=== PATIENT | female | born 1930 | race Caucasian/White ===

== ENCOUNTER 2016-08-06 18:43 | Inpatient (IN) | payer MEDICARE, BC ==
[~2016-08-06] VITALS: Ht 154.9 cm; Wt 44.1 kg
[~2016-08-06 18:43] MED LIST: ASPI81 PO; CLOP75 PO; CO-E100C PO; GENT0.2D2 EACH EYE; IRON325T2 PO; LASI20TA PO; METO25 PO; MICR1TAB PO; NEXI20CA PO; NITR0.4S SL; POTA10IN2 PO; SYMB160A INH
[2016-08-06 18:46] VITALS: BP 144/61; PULSE 65; RESP 16; TEMP 98.4; O2SAT 96
[2016-08-06 19:13] VITALS: BP 163/71; PULSE 85; RESP 18; TEMP 98.4; O2SAT 97
[2016-08-06] MEDS ORDERED: CLOP75TA PO (19:13)
[2016-08-06] MEDS ORDERED: ASPI1TAB69 PO (19:13)
[2016-08-06] MEDS ORDERED: POTA10TA2 PO (19:13)
[2016-08-06] MEDS ORDERED: METO25TA3 PO (19:13)
[2016-08-06] MEDS ORDERED: FURO1TAB62 PO (19:13)
[2016-08-06] MEDS ORDERED: COEN200C4 PO (19:13)
[2016-08-06] MEDS ORDERED: SODIUM CHLOR 0.9% 1000 ML INJ 1,000 ML IV SCH ×2 (19:30→23:00)
[2016-08-06] MEDS ORDERED: SODIUM CHLORIDE 0.9% FLUSH 5 ML FLUSH IVF PRN (19:30)
--- NOTE | 2016-08-06 19:53 | PD ---
HPI Chief Complaint: Abdominal Pain Time Seen by Provider: 19:24 Travel History International Travel<30 days: No Contact w/Intl Traveler<30days: No Traveled to known affect area: No History of Present Illness HPI The patient is an 85-year-old female that complains of periumbilical and bilateral lower quadrant pain since this afternoon. She does have nausea with vomiting. She does have a abdominal aortic aneurysm is about 4 cm. She denies any fever. She denies any diarrhea and has some slight constipation but had a fairly hard bowel movement today. She has a cholecystectomy but still has her appendix. She does have a history of COPD. She has not had a cough lately. She denies any dysuria, frequency or urgency. She states she has not passed gas since he passed the stool earlier today. PFSH Past Medical History AAA: Yes Blood Disorders: No Heart Rhythm Problems: No Cancer: No Cardiac Catheterization: Yes Cardiovascular Problems: Yes (SD 1973, AAA, L OPTICAL ARTERY ANEURYSM, CARDIAC STENT) High Cholesterol: Yes Chest Pain: Yes Congestive Heart Failure: Yes COPD: Yes Coronary Artery Disease: Yes Diabetes: No Diminished Hearing: No Endocrine: No Gastrointestinal Disorders: Yes (ACID REFLUX) GERD: Yes Genitourinary: No Hepatitis: No Hiatal Hernia: No Heparin Induced Thrombocytopen: No Hypertension: Yes Immune Disorder: No Medical other: Yes (LEFT TEMPORAL ANEURYSM) Musculoskeletal: Yes (OSTEOPOROSIS) Neurologic: Yes (STROKE 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 [place]) AICD: No Arteriovenous Shunt: No Body Medical Devices: CARDIAC STENT, ANEURYSM CLIP Cardiac Surgery: Yes (CARDIAC STENT 1973) Cholecystectomy: Yes Coronary Artery Bypass Graft: No Coronary Stent: Yes Ear Surgery: No Endocrine Surgery: No Eye Surgery: Yes (RIGHT OPTIC NERVE CLIP) Genitourinary Surgery: No Gynecologic Surgery: No Insulin Pump: No Joint Replacement: No Neurologic Surgery: Yes (R TEMPORAL ANEURYSM REPAIR.) Oral Surgery: No Pacemaker: No Thoracic Surgery: No Other Surgery: Yes (LEFT CAROTID ENDARTARECTOMY) Family History Family Myocardial Infarction: No Social History Alcohol Use: No Tobacco Use: No (QUIT 2006) Substance Use: No Allergies-Medications (Allergen,Severity, Reaction): Coded Allergies: Dilantin (Verified Allergy, Severe, Rash, 08/06/16) Penicillin (Verified Allergy, Severe, Swelling, 08/06/16) Sulfa (Unverified Allergy, Severe, Rash, 08/06/16) MRI PRECAUTION (Verified Adverse Reaction, Severe, ANEURYSM CLIP CX PER S MILES ADB, 08/06/16) Percocet (Verified Adverse Reaction, Severe, Hallucinations, 08/06/16) Valium (Verified Adverse Reaction, Severe, HALLUCINATIONS, 08/06/16) Aspirin (Verified Adverse Reaction, Intermediate, Bleeding, 08/06/16) PT STATES IT IS "FULL STRENGTH ASA",BABY ASA OK. FULL STRENGTH GIVES HER A NOSE BLEED Reported Meds & Prescriptions Reported Meds & Active Scripts Active Reported Coenzyme Q-10 High Potency (Coenzyme Q10 (Ubidecarenone)) 200 Mg Cap 100 Mg PO DAILY Metoprolol Tartrate 25 Mg Tab 25 Mg PO DAILY Potassium Chloride ER (Potassium Chloride) 10 Meq Tab 10 Meq PO BID Lasix (Furosemide) 20 Mg Tab 20 Mg PO DAILY Clopidogrel (Clopidogrel Bisulfate) 75 Mg Tab 75 Mg PO DAILY Aspirin 81 Mg Tabdr 81 Mg PO DAILY Review of Systems Except as stated in HPI: all other systems reviewed are Neg Physical Exam Narrative GENERAL: The patient is alert, slender, oriented 3, slightly dehydrated- appearing in moderate apparent distress with her abdominal discomfort. Her vital signs are normal. SKIN: Warm and dry. HEAD: Atraumatic. Normocephalic. EYES: Pupils equal and round. No scleral icterus. No injection or drainage. ENT: No nasal bleeding or discharge. Mucous membranes pink and moist. NECK: Trachea midline. No JVD. CARDIOVASCULAR: Regular rate and rhythm. No murmur appreciated. RESPIRATORY: No accessory muscle use. Clear to auscultation. Breath sounds equal bilaterally. GASTROINTESTINAL: Abdomen shows bilateral guarding in the lower quadrants and periumbilical area to direct palpation, nondistended. Hepatic and splenic margins not palpable. No rebound is present. MUSCULOSKELETAL: No obvious deformities. No clubbing. No cyanosis. No edema. NEUROLOGICAL: Awake and alert. No obvious cranial nerve deficits. Motor grossly within normal limits. Normal speech. PSYCHIATRIC: Appropriate mood and affect; insight and judgment normal. Data Data Last Documented VS Vital Signs Date Time Temp Pulse Resp B/P Pulse Ox O2 Delivery O2 Flow Rate FiO2 08/06/16 23:08 74 18 166/81 97 Room Air 08/06/16 19:13 98.4 Orders Complete Blood Count With Diff (08/06/16 19:30) Lipase (08/06/16 19:30) Urinalysis - C+S If Indicated (08/06/16 19:30) Ct Abd/Pel W Iv Contrast(Rout) (08/06/16 19:30) Iv Access Insert/Monitor (08/06/16 19:30) Ecg Monitoring (08/06/16 19:30) Oximetry (08/06/16 19:30) Sodium Chlor 0.9% 1000 Ml Inj (Ns 1000 M (08/06/16 19:30) Sodium Chloride 0.9% Flush (Ns Flush) (08/06/16 19:30) Comprehensive Metabolic Panel (08/06/16 19:50) Iodixanol 320 Inj (Rad Ct) (Visipaque 32 (08/06/16 21:47) Ondansetron Inj (Zofran Inj) (08/06/16 23:00) Sodium Chlor 0.9% 1000 Ml Inj (Ns 1000 M (08/06/16 23:00) Ng Gastric Tube Insert/Monitor (08/06/16 22:51) Admit To Inpatient (08/06/16 ) Vital Signs (Adult) Q4H (08/06/16 23:00) Activity Oob Ad Nadia (08/06/16 23:00) Histologic Technician / Telemetry .CONTINUOUS (08/06/16 23:00) Intake + Output CHERYL.QSHIFT (08/06/16 23:00) Diet Npo (08/07/16 Breakfast) Sodium Chloride 0.9% Flush (Ns Flush) (08/06/16 23:00) Sodium Chloride 0.9% Flush (Ns Flush) (08/07/16 09:00) Ondansetron Inj (Zofran Inj) (08/06/16 23:00) Basic Metabolic Panel (Bmp) (08/07/16 06:00) Complete Blood Count With Diff (08/07/16 06:00) Pt Request For Service (08/06/16 23:00) Scd Bilateral/Knee High CHERYL.BID (08/06/16 23:00) Naloxone Inj (Narcan Inj) (08/06/16 23:00) Inpatient Certification (08/06/16 ) Morphine Inj (Morphine Inj) (08/06/16 23:15) Labs Laboratory Tests Test 08/06/16 19:50 White Blood Count 9.2 TH/MM3 Red Blood Count 4.38 MIL/MM3 Hemoglobin 12.2 GM/DL Hematocrit 37.6 % Mean Corpuscular Volume 85.9 FL Mean Corpuscular Hemoglobin 27.9 PG Mean Corpuscular Hemoglobin 32.5 % Concent Red Cell Distribution Width 15.2 % Platelet Count 255 TH/MM3 Mean Platelet Volume 7.4 FL Neutrophils (%) (Auto) 80.7 % Lymphocytes (%) (Auto) 13.5 % Monocytes (%) (Auto) 3.8 % Eosinophils (%) (Auto) 1.0 % Basophils (%) (Auto) 1.0 % Neutrophils # (Auto) 7.5 TH/MM3 Lymphocytes # (Auto) 1.2 TH/MM3 Monocytes # (Auto) 0.3 TH/MM3 Eosinophils # (Auto) 0.1 TH/MM3 Basophils # (Auto) 0.1 TH/MM3 CBC Comment DIFF FINAL Differential Comment Sodium Level 141 MEQ/L Potassium Level 4.9 MEQ/L Chloride Level 104 MEQ/L Carbon Dioxide Level 27.1 MEQ/L Anion Gap 10 MEQ/L Blood Urea Nitrogen 34 MG/DL Creatinine 1.40 MG/DL Estimat Glomerular Filtration 36 ML/MIN Rate Random Glucose 116 MG/DL Calcium Level 9.3 MG/DL Total Bilirubin 0.6 MG/DL Aspartate Amino Transf 15 U/L (AST/SGOT) Alanine Aminotransferase 14 U/L (ALT/SGPT) Alkaline Phosphatase 119 U/L Total Protein 7.0 GM/DL Albumin 3.3 GM/DL Lipase 254 U/L [facility] Medical Decision Making Medical Screen Exam Complete: Yes Emergency Medical Condition: Yes Medical Record Reviewed: Yes Interpretation(s) The CT abdomen pelvis shows dilated proximal and mid small bowel with multiple air fluids and some distal decompression. This is consistent with a partial or early bowel obstruction. Also noted is a 5.2 x 4 cm abdominal aortic aneurysm without evidence for rupture. The CBC is normal except for 81% neutrophils. The complete metabolic profile shows a BUN of 34, creatine 1.4, GFR 36 with alkaline phosphatase of 119 and albumen 3.3. The lipase is normal. Differential Diagnosis Colitis, appendicitis, small bowel obstruction, mesenteric adenitis, leaking abdominal aortic aneurysmunlikely electrolyte disorder, anemia Narrative Course The patient likely has a partial small bowel obstruction. She has crampy episodes with significant pain but most of the time is fairly pain-free. She states she has passed stool earlier today but it was quite hard. She states that she is not passing gas here in the emergency department. It is now 1113 and the patient has just vomited 20 minutes ago. She was given Zofran and an NG tube. Diagnosis Primary Impression: Small bowel obstruction Additional Impression: Vomiting Franco Campoverde MD Aug 06, 2016 19:53
[2016-08-06 20:01] LABS: AUTOMATED NEUTROPHIL # 7.5 TH/MM3 (1.8-7.7); BASOPHIL # 0.1 TH/MM3 (0-0.2); EOSINOPHIL # 0.1 TH/MM3 (0-0.4); HEMATOCRIT 37.6 % (35.0-46.0); HEMO FLAGS DIFF FINAL; LYMPH % 13.5 % (9.0-44.0); LYMPHOCYTE # 1.2 TH/MM3 (1.0-4.8); MEAN CELL VOLUME 85.9 FL (80.0-100.0); MEAN CORPUSCULAR HEMOGLOBIN 27.9 PG (27.0-34.0); MEAN CORPUSCULAR HGB CONC 32.5 % (32.0-36.0); MONO % 3.8 % (0.0-8.0); NEUT % 80.7 % (16.0-70.0); PLATELET COUNT 255 TH/MM3 (150-450); RED BLOOD COUNT 4.38 MIL/MM3 (4.00-5.30); RED CELL DISTRIBUTION WIDTH 15.2 % (11.6-17.2); WHITE BLOOD COUNT 9.2 TH/MM3 (4.0-11.0)
[2016-08-06 20:13] LABS: CHLORIDE 104 MEQ/L (98-107); POTASSIUM 4.9 MEQ/L (3.5-5.1); SODIUM (NA) 141 MEQ/L (136-145)
[2016-08-06 20:16] LABS: ANION GAP 10 MEQ/L (5-15); BICARBONATE 27.1 MEQ/L (21.0-32.0)
[2016-08-06 20:17] LABS: BLOOD UREA NITROGEN 34 MG/DL (7-18)
[2016-08-06 20:19] LABS: GLOMERULAR FILTRATION RATE 36 ML/MIN (>89)
[2016-08-06 20:20] LABS: ALT (GPT) 14 U/L (10-53); AST (GOT) 15 U/L (15-37)
[2016-08-06 20:21] LABS: TOTAL BILIRUBIN ADULT 0.6 MG/DL (0.2-1.0)
[2016-08-06 20:22] LABS: ALKALINE PHOSPHATASE 119 U/L (45-117)
[2016-08-06 20:28] VITALS: O2SAT 97
[2016-08-06 21:09] VITALS: BP 159/86; PULSE 84; RESP 18; O2SAT 97
[2016-08-06] MEDS ORDERED: IODIXANOL 320 MG/ML 50 ML VIAL (for Rad CT) IV ONE (21:47)
[2016-08-06 22:11] VITALS: BP 158/84; PULSE 82; RESP 18; O2SAT 97
--- NOTE | 2016-08-06 22:11 | RADHPO ---
EXAM DATE/TIME: 08/06/2016 21:23 [facility] COMPARISON: No previous studies available for comparison. INDICATIONS : Abdomen pain. IV CONTRAST: 46 cc Visipaque (iodixanol) IV ORAL CONTRAST: No oral contrast ingested. RADIATION DOSE: 7.38 CTDIvol (mGy) MEDICAL HISTORY : Cardiovascular disease. Cerebrovascular disease. Pancreatitis. SURGICAL HISTORY : Cholecystectomy. ENCOUNTER: Initial ACUITY: 1 day PAIN SCALE: 3/10 LOCATION: abdomen TECHNIQUE: Volumetric scanning of the abdomen and pelvis was performed. Using automated exposure control and ad justment of the mA and/or kV according to patient size, radiation dose was kept as low as reasonably achievable to obtain optimal diagnostic quality images. FINDINGS: There is minimal basilar atelectasis or scarring. There is mild biliary ductal dilatation with common bile duct measuring up to 14 mm. Previous cholecystectomy. Spleen, adrenals, kidneys and pancreas de monstrate no acute findings. There is small bowel dilatation with multiple air-fluid levels. Distal small bowel is decompressed. F indings are most characteristic of at least a partial or early small bowel obstruction. There is a small hiatal hernia. There is moderate to severe atherosclerotic change in the abdominal a ganga with an oval-shaped 4 x 5.2 cm infrarenal abdominal aortic aneurysm. There is a previous femoral to femoral shunt. No free fluid. No free air. CONCLUSION: 1. Dilated proximal and mid small bowel with multiple air-fluid levels and some distal decompression. Findings are most characteristic of a partial or early small bowel obstruction. 2. 5.2 x 4 cm abdominal aortic aneurysm without evidence for rupture. 3. Previous cholecystectomy with biliary ductal dilatation to 14 mm. 4. Moderate to severe coronary artery calcifications. Renato Winslow MD on August 06, 2016 at 21:58 Board Certified Radiologist. This report was verified electronically.
[2016-08-06] MEDS ORDERED: ONDANSETRON HCL 4 MG/2 ML VIAL IV ONE (23:00)
[2016-08-06] MEDS ORDERED: ONDANSETRON HCL 4 MG/2 ML VIAL IVP PRN (23:00)
[2016-08-06] MEDS ORDERED: NALOXONE HCL 0.4 MG/ML AMP IV PRN (23:00)
[2016-08-06] MEDS ORDERED: SODIUM CHLORIDE 0.9% FLUSH 5 ML FLUSH FLUSH PRN (23:00)
[2016-08-06 23:08] VITALS: BP 166/81; PULSE 74; RESP 18; O2SAT 97
[2016-08-06] MEDS ORDERED: MORPHINE SULFATE 4 MG/ML INJ IV PUSH PRN (23:15)
[2016-08-07] VITALS (9 sets, daily range): BP systolic 144–163; BP diastolic 62–84; PULSE 71–78; RESP 16–20; TEMP 96.8–98.8; O2SAT 89–96
[2016-08-07 01:57] LABS: BLOOD, URINE TRACE (NEG); GLUCOSE,URINE NEG (NEG); KETONE, URINE NEG (NEG); NITRITE,URINE NEG (NEG)
[2016-08-07 02:26] LABS: METHOD OF COLLECTION CLEAN CATCH; URINE COLOR YELLOW (YELLW/STRAW)
[2016-08-07 02:27] LABS: MUCUS URINE OCC /lpf (OCC); SQUAMOUS EPITHELIAL CELL URINE 0-5 /hpf (0-5); WBC, URINE 0-2 /hpf (0-5)
[2016-08-07 02:28] LABS: BACTERIA, URINE OCC /hpf
[2016-08-07 02:29] LABS: COMMENT (UR) CULT NOT INDICATED; CULTURE IF INDICATED CULT NOT INDICATED; RBC, URINE 0-3 /hpf (0-3)
[2016-08-07 06:30] LABS: AUTOMATED NEUTROPHIL # 7.1 TH/MM3 (1.8-7.7); BASOPHIL # 0.1 TH/MM3 (0-0.2); BASOPHIL % 0.7 % (0.0-2.0); EOSINOPHIL # 0.2 TH/MM3 (0-0.4); EOSINOPHIL % 2.7 % (0.0-4.0); HEMATOCRIT 35.1 % (35.0-46.0); HEMO FLAGS DIFF FINAL; LYMPH % 12.8 % (9.0-44.0); LYMPHOCYTE # 1.1 TH/MM3 (1.0-4.8); MEAN CORPUSCULAR HEMOGLOBIN 27.1 PG (27.0-34.0); MEAN CORPUSCULAR HGB CONC 31.9 % (32.0-36.0); MONO % 5.1 % (0.0-8.0); NEUT % 78.7 % (16.0-70.0); PLATELET COUNT 230 TH/MM3 (150-450); RED BLOOD COUNT 4.13 MIL/MM3 (4.00-5.30); RED CELL DISTRIBUTION WIDTH 14.7 % (11.6-17.2)
[2016-08-07 06:58] LABS: BICARBONATE 23.2 MEQ/L (21.0-32.0); POTASSIUM 4.2 MEQ/L (3.5-5.1)
[2016-08-07] MEDS: SODIUM CHLORIDE 0.9% FLUSH 5 ML FLUSH FLUSH SCH ×2 (08:35→20:14)
--- NOTE | 2016-08-07 09:15 | RADHPO ---
EXAM DATE/TIME: 08/07/2016 09:03 [facility] COMPARISON: No previous studies available for comparison. INDICATIONS : Abdominal pain. Obstruction. MEDICAL HISTORY : Hypertension. Hypercholesterolemia. Emphysema. Pancreatitis. NV. CHF. CAD. GERD. Osteoporosis. A rthritis.Stroke.COPD. SURGICAL HISTORY : Cholecystectomy. ORIF left hip. Right temporal aneurysm repair. ENCOUNTER: Subsequent ACUITY: 2 days PAIN SCORE: 0/10 LOCATION: entire abdomen FINDINGS: Supine and upright views of the abdomen were performed. The NG tube is in the distal esophagus. There are cholecystectomy clips The abdominal bowel gas pattern is normal. No air fluid levels are seen. No abnormal masses, calcifications, or organomegaly is seen. The visualized lower lungs are clear. No evidence of free intraperitoneal gas. The osseous structures are unremarkable. CONCLUSION: Normal examination. NG tube within the distal esophagus. Binu Paul MD on August 07, 2016 at 9:14 Board Certified Radiologist. This report was verified electronically.
[2016-08-07] MEDS ORDERED: ENALAPRILAT 1.25 MG/ML VIAL IV PRN (11:00)
--- NOTE | 2016-08-07 14:27 | HHI.HP ---
[facility] Service [facility] Primary Care Physician Calli Nguyen MD Admission Diagnosis small bowel obstruction with vomiting Diagnoses: Chief Complaint: Abdominal pain Travel History International Travel<30 Days: No Contact w/Intl Traveler <30 Da: No Traveled to Known Affected Are: No History of Present Illness This patient is a very pleasant 85-year-old female with multiple intra- abdominal surgeries in the past who has complained of sudden onset of severe abdominal pain for 1 day. Is associated with nausea and vomiting non-bilious. Patient had some loose stools and had come to the hospital for further evaluation. She denies any fevers or chills and no previous day fluid in the gastric container does appear slightly red tinged. She has felt better since nasogastric suction has been applied. Patient did have a CT abdomen pelvis which showed a my review are loops consistent with small bowel obstruction Review of Systems Constitutional: DENIES: Diaphoretic episodes, Fatigue, Fever, Weight gain, Weight loss, Chills, Dizziness, Change in appetite, Night Sweats Endocrine: DENIES: Abnorml menstrual pattern, Heat/cold intolerance, Polydipsia , Polyuria, Polyphagia Eyes: DENIES: Blurred vision, Diplopia, Eye inflammation, Eye pain, Vision loss , Photosensitivity, Double Vision Ears, nose, mouth, throat: DENIES: Tinnitus, Hearing loss, Vertigo, Nasal discharge, Oral lesions, Throat pain, Hoarseness, Ear Pain, Running Nose, Epistaxis, Sinus Pain, Toothache, Odynophagia Respiratory: DENIES: Apneas, Cough, Snoring, Wheezing, Hemoptysis, Sputum production, Shortness of breath Cardiovascular: DENIES: Chest pain, Palpitations, Syncope, Dyspnea on Exertion , PND, Lower Extremity Edema, Orthopnea, Claudication Gastrointestinal: DENIES: Abdominal pain, Black stools, Bloody stools, Constipation, Diarrhea, Nausea, Vomiting, Difficulty Swallowing, Anorexia Genitourinary: DENIES: Abnormal vaginal bleeding, Dysmenorrhea, Dyspareunia, Sexual dysfunction, Urinary frequency, Urinary incontinence, Urgency, Hematuria , Dysuria, Nocturia, Vaginal discharge Musculoskeletal: DENIES: Joint pain, Muscle aches, Stiffness, Joint Swelling, Back pain, Neck pain Integumentary: DENIES: Abnormal pigmentation, Pruritus, Rash, Nail changes, Breast masses, Breast skin changes, Nipple discharge Hematologic/lymphatic: DENIES: Bruising, Lymphadenopathy Immunologic/allergic: DENIES: Eczema, Urticaria Neurologic: DENIES: Abnormal gait, Headache, Localized weakness, Paresthesias, Seizures, Speech Problems, Tremor, Poor Balance Psychiatric: DENIES: Anxiety, Confusion, Mood changes, Depression, Hallucinations, Agitation, Suicidal Ideation, Homicidal Ideation, Delusions Past Family Social History Past Medical History CAD COPD AAA Past Surgical History GN AAA repair Cardiac stents Reported Medications Reviewed in the EMR Allergies: Coded Allergies: Dilantin (Verified Allergy, Severe, Rash, 08/06/16) Penicillin (Verified Allergy, Severe, Swelling, 08/06/16) Sulfa (Unverified Allergy, Severe, Rash, 08/06/16) MRI PRECAUTION (Verified Adverse Reaction, Severe, ANEURYSM CLIP CX PER S MILES ADB, 08/06/16) Percocet (Verified Adverse Reaction, Severe, Hallucinations, 08/06/16) Valium (Verified Adverse Reaction, Severe, HALLUCINATIONS, 08/06/16) Aspirin (Verified Adverse Reaction, Intermediate, Bleeding, 08/06/16) PT STATES IT IS "FULL STRENGTH ASA",BABY ASA OK. FULL STRENGTH GIVES HER A NOSE BLEED Active Ordered Medications Reviewed in the EMR Family History No family hx of intestinal disorders parents of old age, mother in her late 70s, father in his 90s Social History No tobacco, etoh, lives with family Physical Exam Vital Signs Vital Signs Date Time Temp Pulse Resp B/P Pulse Ox O2 Delivery O2 Flow Rate FiO2 08/07/16 12:00 97.6 71 16 158/73 94 08/07/16 08:00 98.8 74 16 158/68 95 08/07/16 04:18 86 18 96 08/07/16 04:00 98.2 75 18 155/75 95 08/07/16 03:55 74 18 161/78 96 Room Air 08/07/16 02:00 72 18 163/62 96 Room Air 08/07/16 00:05 78 18 154/84 96 Room Air 08/06/16 23:08 74 18 166/81 97 Room Air 08/06/16 22:11 82 18 158/84 97 Room Air 08/06/16 21:09 84 18 159/86 97 Room Air 08/06/16 20:28 97 Room Air 08/06/16 19:13 98.4 85 18 163/71 97 Room Air 08/06/16 19:13 18 08/06/16 18:46 98.4 65 16 144/61 96 Physical Exam GENERAL: This is a ill appearing, well-developed patient, in no apparent distress. SKIN: No rashes, ecchymoses or lesions. Cool and dry. HEAD: Atraumatic. Normocephalic. No temporal or scalp tenderness. EYES: Pupils equal round and reactive. Extraocular motions intact. No scleral icterus. No injection or drainage. ENT: Nose without bleeding, purulent drainage or septal hematoma. Throat without erythema, tonsillar hypertrophy or exudate. Uvula midline. Airway patent. NECK: Trachea midline. No JVD or lymphadenopathy. Supple, nontender, no meningeal signs. CARDIOVASCULAR: Regular rate and rhythm without murmurs, gallops, or rubs. RESPIRATORY: Clear to auscultation. Breath sounds equal bilaterally. No wheezes , rales, or rhonchi. GASTROINTESTINAL: Abdomen soft, non-tender, nondistended. No hepato-splenomegaly , or palpable masses. No guarding. Hypoactive BS MUSCULOSKELETAL: Extremities without clubbing, cyanosis, or edema. No joint tenderness, effusion, or edema noted. No calf tenderness. Negative Homans sign bilaterally. NEUROLOGICAL: Awake and alert. Cranial nerves II through XII intact. Motor and sensory grossly within normal limits. Five out of 5 muscle strength in all muscle groups. Normal speech. Laboratory Laboratory Tests Test 08/06/16 08/07/16 08/07/16 19:50 01:50 05:55 White Blood Count 9.2 9.0 Red Blood Count 4.38 4.13 Hemoglobin 12.2 11.2 Hematocrit 37.6 35.1 Mean Corpuscular Volume 85.9 85.0 Mean Corpuscular Hemoglobin 27.9 27.1 Mean Corpuscular Hemoglobin 32.5 31.9 Concent Red Cell Distribution Width 15.2 14.7 Platelet Count 255 230 Mean Platelet Volume 7.4 7.8 Neutrophils (%) (Auto) 80.7 78.7 Lymphocytes (%) (Auto) 13.5 12.8 Monocytes (%) (Auto) 3.8 5.1 Eosinophils (%) (Auto) 1.0 2.7 Basophils (%) (Auto) 1.0 0.7 Neutrophils # (Auto) 7.5 7.1 Lymphocytes # (Auto) 1.2 1.1 Monocytes # (Auto) 0.3 0.5 Eosinophils # (Auto) 0.1 0.2 Basophils # (Auto) 0.1 0.1 CBC Comment DIFF FINAL DIFF FINAL Differential Comment Sodium Level 141 144 Potassium Level 4.9 4.2 Chloride Level 104 113 Carbon Dioxide Level 27.1 23.2 Anion Gap 10 8 Blood Urea Nitrogen 34 26 Creatinine 1.40 1.10 Estimat Glomerular Filtration 36 47 Rate Random Glucose 116 98 Calcium Level 9.3 8.8 Total Bilirubin 0.6 Aspartate Amino Transf 15 (AST/SGOT) Alanine Aminotransferase 14 (ALT/SGPT) Alkaline Phosphatase 119 Total Protein 7.0 Albumin 3.3 Lipase 254 Urine Collection Type CLEAN CATCH Urine Color YELLOW Urine Turbidity CLEAR Urine pH 6.0 Urine Specific Pauline 1.021 Urine Protein NEG Urine Glucose (UA) NEG Urine Ketones NEG Urine Occult Blood TRACE Urine Nitrite NEG Urine Bilirubin NEG Urine Leukocyte Esterase NEG Urine RBC 0-3 Urine WBC 0-2 Urine Squamous Epithelial 0-5 Cells Urine Bacteria OCC Urine Mucus OCC Microscopic Urinalysis Comment CULT NOT INDICATED Date/Time Procedure Status Source Growth 08/07/16 11:50 Gastric Occult Blood Received Gastric Pending Result Diagram: 08/07/16 0555 08/07/16 0555 Imaging Last Impressions Abdomen X-Ray 08/07/16 0000 Signed Impressions: Service Date/Time: Sunday, August 07, 2016 09:03 - CONCLUSION: Normal examination. NG tube within the distal esophagus. Binu Paul MD Abdomen/Pelvis CT 08/06/16 1930 Signed Impressions: Service Date/Time: Saturday, August 06, 2016 21:23 - CONCLUSION: 1. Dilated proximal and mid small bowel with multiple air-fluid levels and some distal decompression. Findings are most characteristic of a partial or early small bowel obstruction. 2. 5.2 x 4 cm abdominal aortic aneurysm without evidence for rupture. 3. Previous cholecystectomy with biliary ductal dilatation to 14 mm. 4. Moderate to severe coronary artery calcifications. Renato Winslow MD Assessment and Plan Problem List: (1) Small bowel obstruction ICD Code: K56.69 Status: Acute Plan: Repeat abdomen today completed, unremarkable however patient still has signs and symptoms of obstruction. Continue nothing by mouth status and NG tube to low intermittent suction Repeat abdomen, in am (2) HTN (hypertension) ICD Code: I10 Status: Chronic Plan: on metoprolol, vasotec iv while npo (3) JAVI (acute kidney injury) ICD Code: N17.9 Status: Acute Plan: Likely prerenal, continue to hydrate patient. Improved with IV fluids (4) PVD (peripheral vascular disease) ICD Code: I73.9 Status: Acute Plan: and CAD on plavix and ASA which are held Assessment and Plan Plan of care to be determined by Hospital course Code Status Full code Discussed Condition With Patient, physical therapy and MedSurg nurse Physician Certification 2 Midnight Certification Type: Admission for Inpatient Services Order for Inpatient Services The services are ordered in accordance with Medicare regulations or non- Medicare payer requirements, as applicable. In the case of services not specified as inpatient-only, they are appropriately provided as inpatient services in accordance with the 2-midnight benchmark. Estimated LOS (days): 3 3 days is the estimated time the patient will need to remain in the hospital, assuming treatment plan goals are met and no additional complications. Post-Hospital Plan: Home Anita Nolan MD Aug 07, 2016 14:27
[2016-08-08] VITALS: BP 168/69; PULSE 82; RESP 20; TEMP 99.4; O2SAT 88
[2016-08-08 05:38] LABS: BASOPHIL % 0.4 % (0.0-2.0); EOSINOPHIL # 0.1 TH/MM3 (0-0.4); EOSINOPHIL % 1.5 % (0.0-4.0); HEMATOCRIT 36.3 % (35.0-46.0); HEMO FLAGS DIFF FINAL; LYMPH % 15.2 % (9.0-44.0); LYMPHOCYTE # 1.4 TH/MM3 (1.0-4.8); MEAN CELL VOLUME 86.4 FL (80.0-100.0); MEAN CORPUSCULAR HEMOGLOBIN 27.5 PG (27.0-34.0); MEAN CORPUSCULAR HGB CONC 31.8 % (32.0-36.0); MONO % 6.7 % (0.0-8.0); NEUT % 76.2 % (16.0-70.0); PLATELET COUNT 228 TH/MM3 (150-450); RED BLOOD COUNT 4.21 MIL/MM3 (4.00-5.30); RED CELL DISTRIBUTION WIDTH 15.1 % (11.6-17.2); WHITE BLOOD COUNT 9.1 TH/MM3 (4.0-11.0)
--- NOTE | 2016-08-08 06:15 | RADHPO ---
EXAM DATE/TIME: 08/08/2016 05:39 [facility] COMPARISON: No previous studies available for comparison. INDICATIONS : Abdominal pain. MEDICAL HISTORY : Cardiovascular disease. Cerebrovascular disease. Pancreatitis. SURGICAL HISTORY : Cholecystectomy. ENCOUNTER: Subsequent ACUITY: 3 days PAIN SCORE: 0/10 LOCATION: Bilateral Abdomen FINDINGS: Upper limits of normal to mildly distended small bowel seen in the left midabdomen. There is air and stool in the colon. A moderate amount of stool is seen in the rectum. No free air. Nasogastric tube tip is currently in the lower esophagus or hiatal hernia. It is above the diaphragm. CONCLUSION: Still mildly distended small bowel loops. Tip of the nasogastric tube is above the diaphragm. Wilbur Kwong MD on August 08, 2016 at 6:09 Board Certified Radiologist. This report was verified electronically.
[2016-08-08] MEDS: SODIUM CHLORIDE 0.9% FLUSH 5 ML FLUSH FLUSH SCH ×2 (07:46→20:23)
[2016-08-08 08:00] VITALS: BP 158/61; PULSE 88; RESP 18; TEMP 98.1; O2SAT 98
[2016-08-08 12:00] VITALS: BP 142/81; PULSE 85; RESP 19; TEMP 97.8; O2SAT 97
--- NOTE | 2016-08-08 12:21 | HHI.PR ---
Subjective Remarks Patient seen at 11 AM. Daughter at bedside. Patient denies abdominal pain nausea or vomiting. States she feels much better since NG tube was taken out. The patient is thirsty and requests to have green tea. Objective Vitals Vital Signs Date Time Temp Pulse Resp B/P Pulse Ox O2 Delivery O2 Flow Rate FiO2 08/08/16 08:00 98.1 88 18 158/61 98 08/08/16 00:00 99.4 82 20 168/69 88 08/07/16 21:32 93 08/07/16 20:00 97.9 76 20 160/67 89 08/07/16 16:00 96.8 78 18 144/78 93 I/O 08/07/16 08/07/16 08/07/16 08/08/16 08/08/16 08/08/16 07:00 15:00 23:00 07:00 15:00 23:00 Intake Total 0 ml 0 ml 0 ml Output Total 500 ml 200 ml 300 ml Balance -500 ml 0 ml -200 ml -300 ml Intake Oral 0 ml 0 ml 0 ml Output Urine Total 400 ml 200 ml 300 ml Gastric Drainage Total 100 ml # Voids 1 2 1 1 # Bowel Movements 0 0 0 Result Diagram: 08/08/16 0450 08/07/16 0555 Objective Remarks GENERAL: Well-nourished, well-developed very pleasant bright and interactive elderly female patient. SKIN: Warm and dry. HEAD: Normocephalic. EYES: No scleral icterus. No injection or drainage. NECK: Supple, trachea midline. No JVD or lymphadenopathy. CARDIOVASCULAR: Regular rate and rhythm without murmurs, gallops, or rubs. RESPIRATORY: Breath sounds equal bilaterally. No accessory muscle use. GASTROINTESTINAL: Bowel sounds are hypoactive. Abdomen soft, non-tender, nondistended. EXTREMITIES: No cyanosis, or edema. NEUROLOGICAL: Awake, alert, and oriented x 3. Non-focal. A/P Problem List: (1) Small bowel obstruction ICD Code: K56.69 Status: Acute (2) HTN (hypertension) ICD Code: I10 Status: Chronic (3) JAVI (acute kidney injury) ICD Code: N17.9 Status: Acute (4) PVD (peripheral vascular disease) ICD Code: I73.9 Status: Acute Assessment and Plan -Partial small bowel obstruction. Symptoms of pain and nausea have resolved. Abdominal x-ray shows mildly distended small bowel loops today. The patient took the NG tube out earlier today. Patient is thirsty. We'll try her on clears and see how she does. Advised patient and her daughter to notify me if the patient starts to get nauseated or have abdominal pain. -Acute kidney injury resolving. Continue IV fluids until by mouth intake is improved. -5 cm AAA. Followed by Dr. Colon as an outpatient. -Peripheral vascular disease. Holding aspirin and Plavix. -DVT prophylaxis with SCDs. Margarita Doran MD Aug 08, 2016 12:21
[2016-08-08 16:00] VITALS: BP 150/75; PULSE 77; RESP 17; TEMP 98; O2SAT 96
[2016-08-08 20:00] VITALS: BP 147/69; PULSE 71; RESP 20; TEMP 97.7; O2SAT 93
[2016-08-09] VITALS: BP 147/68; PULSE 81; RESP 20; TEMP 99.1; O2SAT 91
[2016-08-09 08:00] VITALS: BP 133/60; PULSE 71; RESP 18; TEMP 98.1; O2SAT 94
[2016-08-09] MEDS: SODIUM CHLORIDE 0.9% FLUSH 5 ML FLUSH FLUSH SCH (09:44)
--- NOTE | 2016-08-09 09:54 | HHI.FF ---
Face to Face Verification Diagnosis: (1) Partial small bowel obstruction (2) JAVI (acute kidney injury) (3) Claudication Physical Therapy Order: Evaluate and Treat Home Health Nursing Order: Medication education-adverse effect Nursing assessment with vital signs I have seen patient Maru Arrington on 08/09/16. My clinical findings support the need for the requested home health care services because: Ltd mobility - disease progression Deconditioned w/ increased weakness I certify that my clinical findings support that this patient is homebound because: Unsafe to leave home unassisted Need for psychosocial assistance Margarita Doran MD Aug 09, 2016 09:54
--- NOTE | 2016-08-09 09:55 | HHI.DS ---
Discharge Summary Admission Date Aug 06, 2016 at 23:16 Discharge Date: Aug 09, 2016 Admitting Diagnosis small bowel obstruction with vomiting (1) HTN (hypertension) ICD Code: I10 (2) JAVI (acute kidney injury) ICD Code: N17.9 (3) PVD (peripheral vascular disease) ICD Code: I73.9 (4) Partial small bowel obstruction ICD Code: K56.69 Procedures None Brief History - From Admission This patient is a very pleasant 85-year-old female with multiple intra- abdominal surgeries in the past who has complained of sudden onset of severe abdominal pain for 1 day. Is associated with nausea and vomiting non-bilious. Patient had some loose stools and had come to the hospital for further evaluation. She denies any fevers or chills and no previous day fluid in the gastric container does appear slightly red tinged. She has felt better since nasogastric suction has been applied. Patient did have a CT abdomen pelvis which showed dilated proximal and mid small bowel with multiple air-fluid levels and some distal decompression consistent with partial small bowel obstruction. CBC/BMP: 08/08/16 0450 08/07/16 0555 Significant Findings Laboratory Tests Test 08/06/16 08/07/16 08/07/16 08/08/16 19:50 01:50 05:55 04:50 Neutrophils (%) (Auto) 80.7 % 78.7 % 76.2 % (16.0-70.0) (16.0-70.0) (16.0-70.0) Blood Urea Nitrogen 34 MG/DL (7-18) 26 MG/DL (7-18) Creatinine 1.40 MG/DL 1.10 MG/DL (0.50-1.00) (0.50-1.00) Estimat Glomerular Filtration 36 ML/MIN (>89) 47 ML/MIN (>89) Rate Random Glucose 116 MG/DL (74-106) Alkaline Phosphatase 119 U/L (45-117) Albumin 3.3 GM/DL (3.4-5.0) Urine Occult Blood TRACE (NEG) Urine Bacteria OCC /hpf (NONE) Hemoglobin 11.2 GM/DL (11.6-15.3) Mean Corpuscular Hemoglobin 31.9 % 31.8 % Concent (32.0-36.0) (32.0-36.0) Chloride Level 113 MEQ/L (98-107) Imaging Last Impressions Abdomen X-Ray 08/08/16 0600 Signed Impressions: Service Date/Time: Monday, August 08, 2016 05:39 - CONCLUSION: Still mildly distended small bowel loops. Tip of the nasogastric tube is above the diaphragm. Wilbur Kwong MD Abdomen/Pelvis CT 08/06/16 1930 Signed Impressions: Service Date/Time: Saturday, August 06, 2016 21:23 - CONCLUSION: 1. Dilated proximal and mid small bowel with multiple air-fluid levels and some distal decompression. Findings are most characteristic of a partial or early small bowel obstruction. 2. 5.2 x 4 cm abdominal aortic aneurysm without evidence for rupture. 3. Previous cholecystectomy with biliary ductal dilatation to 14 mm. 4. Moderate to severe coronary artery calcifications. Renato Winslow MD PE at Discharge GENERAL: Well-nourished, well-developed very pleasant bright and interactive elderly female patient. SKIN: Warm and dry. HEAD: Normocephalic. EYES: No scleral icterus. No injection or drainage. NECK: Supple, trachea midline. No JVD or lymphadenopathy. CARDIOVASCULAR: Regular rate and rhythm without murmurs, gallops, or rubs. RESPIRATORY: Breath sounds equal bilaterally. No accessory muscle use. GASTROINTESTINAL: Bowel sounds are hypoactive. Abdomen soft, non-tender, nondistended. EXTREMITIES: No cyanosis, or edema. NEUROLOGICAL: Awake, alert, and oriented x 3. Non-focal. Hospital Course The patient was admitted and given an NG tube. Symptoms improved. The patient was advanced to clears and full liquid and is now tolerating a regular diet and had a bowel movement last night and this morning with no abdominal pain nausea or vomiting. She would like to go home. I did discuss her care with her daughter. Home health care will be arranged. She will be discharged home today. Pt Condition on Discharge: Stable Discharge Disposition: Disch w/ Home Health Serv Discharge Time: <= 30 minutes Discharge Instructions DIET: Follow Instructions for: As Tolerated, No Restrictions Activities you can perform: Regular-No Restrictions Continued Medications: Aspirin (Aspirin) 81 Mg Tabdr 81 MG PO DAILY TAB Clopidogrel (Clopidogrel) 75 Mg Tab 75 MG PO DAILY Blood Clot Prevention #30 Ref 0 TAB Coenzyme Q10 (Ubidecarenone) (Coenzyme Q-10 High Potency) 200 Mg Cap 100 MG PO DAILY Furosemide (Lasix) 20 Mg Tab 20 MG PO DAILY #30 Ref 0 TAB Metoprolol Tartrate (Metoprolol Tartrate) 25 Mg Tab 25 MG PO DAILY #30 Ref 0 TAB Potassium Chloride ER (Potassium Chloride ER) 10 Meq Tab 10 MEQ PO BID Electrolyte Replacement #60 Ref 0 TAB Margarita Doran MD Aug 09, 2016 09:55
[2016-08-09 12:00] VITALS: BP 159/72; PULSE 72; RESP 18; TEMP 98.2; O2SAT 95
== END 2016-08-09 13:19 | disposition home health service (06) | DRG 389 ==
LOC: PHED 18:43 → PHEDA 23:16 → PH3A 08-07 04:18
PROVIDERS: ADMIT Family Medicine; ATTEND Family Medicine
DX: K56.69 Other intestinal obstruction (principal); N17.9 Acute kidney failure, unspecified; J44.9 Chronic obstructive pulmonary disease, unspecified; I50.9 Heart failure, unspecified; E86.0 Dehydration; I73.9 Peripheral vascular disease, unspecified; Z98.890 Other specified postprocedural states; I10 Essential (primary) hypertension; I25.10 Atherosclerotic heart disease of native coronary artery without angina pectoris; I25.2 Old myocardial infarction; Z79.82 Long term (current) use of aspirin; I71.4 Abdominal aortic aneurysm, without rupture; Z86.73 Personal history of transient ischemic attack (TIA), and cerebral infarction without residual deficits; M81.0 Age-related osteoporosis without current pathological fracture; E78.00 Pure hypercholesterolemia, unspecified; K21.9 Gastro-esophageal reflux disease without esophagitis; Z87.891 Personal history of nicotine dependence
CPT/HCPCS: 43753; 74020; 74177; 80048; 80053; 81001; 82270; 83690; 84443; 85025; 96361; 96374; J2270; J2405; J7030; Q9967

== ENCOUNTER 2016-08-11 20:50 | Observation (INO) | payer MEDICARE, BC ==
[~2016-08-11 20:50] MED LIST changes: +ASPI1TAB69 PO; -ASPI81 PO; -CLOP75 PO; +CLOP75TA PO; -CO-E100C PO; +COEN200C4 PO; +FURO1TAB62 PO; -GENT0.2D2 EACH EYE; -IRON325T2 PO; -LASI20TA PO; -METO25 PO; +METO25TA3 PO; -MICR1TAB PO; -NEXI20CA PO; -NITR0.4S SL; -POTA10IN2 PO; +POTA10TA2 PO; -SYMB160A INH
[2016-08-11 21:00] VITALS: PULSE 56; RESP 16; O2SAT 94
--- NOTE | 2016-08-11 21:13 | PD ---
HPI Chief Complaint: Chest Pain Time Seen by Provider: 21:07 Travel History International Travel<30 days: No Contact w/Intl Traveler<30days: No History of Present Illness HPI 85-year-old female with history of CAD with previous PCI, AAA status post repair , COPD here with complaint of chest pain. Patient states that she has had left inframammary chest pressure intermittently throughout the day today. Symptoms resolved within minutes after taking a single nitroglycerin. Patient states that this wears off over the course of several hours and her pain returned. She does not take aspirin due to an allergy. She is pain-free at this time. Twelve-lead EKG unremarkable per EMS. Stable during transport. Patient unknown last stress test, per EMR this is in 2012. 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 No associated shortness of breath, lightheadedness, cough, cold, chest congestion. PFSH Past Medical History AAA: Yes Arthritis: Yes Autoimmune Disease: No Blood Disorders: No Anxiety: Yes Depression: No Heart Rhythm Problems: No Cancer: No Cardiac Catheterization: Yes Cardiovascular Problems: Yes ([place] 1973, AAA, L OPTICAL ARTERY ANEURYSM, CARDIAC STENT) High Cholesterol: Yes Chest Pain: Yes Congestive Heart Failure: Yes COPD: Yes Cerebrovascular Accident: Yes Coronary Artery Disease: Yes Diabetes: No Diminished Hearing: No Endocrine: No Gastrointestinal Disorders: Yes (ACID REFLUX) GERD: Yes Genitourinary: No Hepatitis: No Hiatal Hernia: No Heparin Induced Thrombocytopen: No Hypertension: Yes Immune Disorder: No Kidney Stones: No Musculoskeletal: Yes (OSTEOPOROSIS) Neurologic: Yes (STROKE 1973) Psychiatric: No Reproductive: No Respiratory: Yes (EMPHYSEMA) Immunizations Current: Yes Migraines: No Myocardial Infarction: Yes Pancreatitis: Yes Renal Failure: No Seizures: No Sleep Apnea: No Thyroid Disease: No Ulcer: No Menopausal: Yes : 4 Para: 3 Miscarriage: 1 Past Surgical History Abdominal Surgery: Yes (LAP. [place]) AICD: No Arteriovenous Shunt: No Body Medical Devices: CARDIAC STENT, ANEURYSM CLIP Cardiac Surgery: Yes (CARDIAC STENT 1973) Cholecystectomy: Yes Coronary Artery Bypass Graft: No Coronary Stent: Yes Ear Surgery: No Endocrine Surgery: No Eye Surgery: Yes (RIGHT OPTIC NERVE CLIP) Genitourinary Surgery: No Gynecologic Surgery: No Insulin Pump: No Joint Replacement: No Neurologic Surgery: Yes (R TEMPORAL ANEURYSM REPAIR.) Oral Surgery: No Pacemaker: No Thoracic Surgery: No Other Surgery: Yes (LEFT CAROTID ENDARTARECTOMY) Social History Alcohol Use: No Tobacco Use: No (QUIT 2006) Substance Use: No Allergies-Medications (Allergen,Severity, Reaction): Coded Allergies: Dilantin (Verified Allergy, Severe, Rash, 08/11/16) Penicillin (Verified Allergy, Severe, Swelling, 08/11/16) Sulfa (Unverified Allergy, Severe, Rash, 08/11/16) MRI PRECAUTION (Verified Adverse Reaction, Severe, ANEURYSM CLIP CX PER S MILES ADB, 08/11/16) Percocet (Verified Adverse Reaction, Severe, Hallucinations, 08/11/16) Valium (Verified Adverse Reaction, Severe, HALLUCINATIONS, 08/11/16) Aspirin (Verified Adverse Reaction, Intermediate, Bleeding, 08/11/16) PT STATES IT IS "FULL STRENGTH ASA",BABY ASA [place]. FULL STRENGTH GIVES HER A NOSE BLEED Reported Meds & Prescriptions Reported Meds & Active Scripts Active Reported Coenzyme Q-10 High Potency (Coenzyme Q10 (Ubidecarenone)) 200 Mg Cap 100 Mg PO DAILY Metoprolol Tartrate 25 Mg Tab 25 Mg PO DAILY Potassium Chloride ER (Potassium Chloride) 10 Meq Tab 10 Meq PO BID Lasix (Furosemide) 20 Mg Tab 20 Mg PO DAILY Clopidogrel (Clopidogrel Bisulfate) 75 Mg Tab 75 Mg PO DAILY Aspirin 81 Mg Tabdr 81 Mg PO DAILY Review of Systems Except as stated in HPI: all other systems reviewed are Neg Physical Exam Narrative GENERAL: Cachectic elderly female in no acute distress SKIN: Warm and dry. HEAD: Normocephalic. EYES: No scleral icterus. No injection or drainage. ENT: Mucous membranes pink and moist. NECK: Supple CARDIOVASCULAR: Regular rate and rhythm. No murmur appreciated. Slight reproducible tenderness to palpation of the left lower sternal margin. RESPIRATORY: No accessory muscle use. Clear to auscultation. Breath sounds equal bilaterally. GASTROINTESTINAL: Abdomen soft, non-tender, nondistended. MUSCULOSKELETAL: No edema. NEUROLOGICAL: Awake and alert. normal speech. PSYCHIATRIC: Appropriate mood and affect; insight and judgment normal. Data Data Last Documented VS Vital Signs Date Time Temp Pulse Resp B/P Pulse Ox O2 Delivery O2 Flow Rate FiO2 08/11/16 21:42 64 16 134/64 97 Nasal Cannula 2 Orders Electrocardiogram (08/11/16 21:07) Basic Metabolic Panel (Bmp) (08/11/16 21:07) Ckmb (Isoenzyme) Profile (08/11/16 21:07) Complete Blood Count With Diff (08/11/16 21:07) Magnesium (Mg) (08/11/16 21:07) Prothrombin Time / Inr (Pt) (08/11/16 21:07) Act Partial Throm Time (Ptt) (08/11/16 21:07) Troponin I (08/11/16 21:07) Chest, Single Ap (08/11/16 21:07) Ecg Monitoring (08/11/16 21:07) Bilateral Bp Monitoring (08/11/16 21:07) Iv Access Insert/Monitor (08/11/16 21:07) Oximetry (08/11/16 21:07) Sodium Chloride 0.9% Flush (Ns Flush) (08/11/16 21:15) Nitroglycerin Sl (Nitrostat Sl) (08/11/16 21:30) Admit Order (Ed Use Only) (08/11/16 22:06) Activity Bed Rest With Brp (08/11/16 22:07) Vital Signs (Adult) Q4H (08/11/16 22:07) Cardiac Rhythm .As Directed (08/11/16 22:07) ^ Notify Dr: Other .PRN (08/11/16 22:07) ^ Notify DrToribio Parameters (08/11/16 22:07) Resp Oxygen Nasal Cannula (08/11/16 ) Diet Npo (08/12/16 Breakfast) Ckmb (Isoenzyme) Profile (08/12/16 00:15) Ckmb (Isoenzyme) Profile (08/12/16 03:15) Troponin I (08/12/16 00:15) Troponin I (08/12/16 03:15) Electrocardiogram (08/12/16 00:15) Electrocardiogram (08/12/16 03:15) ^ Obtain (08/11/16 22:07) Sodium Chloride 0.9% Flush (Ns Flush) (08/11/16 22:15) Sodium Chloride 0.9% Flush (Ns Flush) (08/12/16 09:00) Nitroglycerin Sl (Nitrostat Sl) (08/11/16 22:15) Photo Specialist / Telemetry CHERYL.Q8H (08/11/16 22:07) Diet Heart Healthy (08/11/16 Dinner) Labs Laboratory Tests Test 08/11/16 21:15 White Blood Count 6.1 TH/MM3 Red Blood Count 3.51 MIL/MM3 Hemoglobin 10.0 GM/DL Hematocrit 30.5 % Mean Corpuscular Volume 86.9 FL Mean Corpuscular Hemoglobin 28.4 PG Mean Corpuscular Hemoglobin 32.7 % Concent Red Cell Distribution Width 15.9 % Platelet Count 213 TH/MM3 Mean Platelet Volume 7.7 FL Neutrophils (%) (Auto) 45.4 % Lymphocytes (%) (Auto) 32.2 % Monocytes (%) (Auto) 12.0 % Eosinophils (%) (Auto) 9.4 % Basophils (%) (Auto) 1.0 % Neutrophils # (Auto) 2.8 TH/MM3 Lymphocytes # (Auto) 2.0 TH/MM3 Monocytes # (Auto) 0.7 TH/MM3 Eosinophils # (Auto) 0.6 TH/MM3 Basophils # (Auto) 0.1 TH/MM3 CBC Comment DIFF FINAL Differential Comment Prothrombin Time 11.4 SEC Prothromb Time International 1.0 RATIO Ratio Activated Partial 25.0 SEC Thromboplast Time Sodium Level 142 MEQ/L Potassium Level 3.9 MEQ/L Chloride Level 108 MEQ/L Carbon Dioxide Level 26.2 MEQ/L Anion Gap 8 MEQ/L Blood Urea Nitrogen 19 MG/DL Creatinine 1.22 MG/DL Estimat Glomerular Filtration 42 ML/MIN Rate Random Glucose 89 MG/DL Calcium Level 8.4 MG/DL Magnesium Level 1.9 MG/DL Total Creatine Kinase 97 U/L Troponin I LESS THAN 0.02 NG/ML MDM Medical Decision Making Medical Screen Exam Complete: Yes Emergency Medical Condition: Yes Medical Record Reviewed: Yes Differential Diagnosis 85-year-old female with history of CAD with previous PCI, AAA status post repair , COPD here with complaint of chest pain. Differential includes ACS, musculoskeletal, atypical chest pain, GERD and less likely PE or dissection. Patient does not have any symptoms of COPD exacerbation. Narrative Course Patient placed on monitor, IV established and blood obtained. A twelve-lead EKG shows sinus rhythm with T-wave inversions in lateral leads aVL, 5, 6. This is similar to patient's previous. She is symptom-free at this time. CBC, BMP, magnesium, CK-MB, troponin, coags obtained and unremarkable. Portable chest x- ray obtained and showed no acute abnormalities. Based on her cardiac history and symptoms will admit for serial enzymes and stress testing. Diagnosis Primary Impression: Chest pain Qualified Code: R07.2 - Precordial pain Additional Impression: Coronary artery disease Admitting Information Admitting Physician Requests: Elsi Hamilton MD Aug 11, 2016 21:13
[2016-08-11] MEDS ORDERED: SODIUM CHLORIDE 0.9% FLUSH 5 ML FLUSH IVF PRN ×2 (21:15→22:15)
[2016-08-11 21:28] LABS: AUTOMATED NEUTROPHIL # 2.8 TH/MM3 (1.8-7.7); BASOPHIL # 0.1 TH/MM3 (0-0.2); EOSINOPHIL # 0.6 TH/MM3 (0-0.4); EOSINOPHIL % 9.4 % (0.0-4.0); HEMATOCRIT 30.5 % (35.0-46.0); HEMO FLAGS DIFF FINAL; LYMPH % 32.2 % (9.0-44.0); MEAN CELL VOLUME 86.9 FL (80.0-100.0); MEAN CORPUSCULAR HEMOGLOBIN 28.4 PG (27.0-34.0); MEAN CORPUSCULAR HGB CONC 32.7 % (32.0-36.0); NEUT % 45.4 % (16.0-70.0); PLATELET COUNT 213 TH/MM3 (150-450); RED BLOOD COUNT 3.51 MIL/MM3 (4.00-5.30); RED CELL DISTRIBUTION WIDTH 15.9 % (11.6-17.2); WHITE BLOOD COUNT 6.1 TH/MM3 (4.0-11.0)
[2016-08-11] MEDS ORDERED: NITROGLYCERIN 0.4 MG SL 25 TABS/BTL SL ONE (21:30)
[2016-08-11 21:41] LABS: PROTHROMBIN TIME - PATIENT 11.4 SEC (9.8-11.6)
[2016-08-11 21:42] VITALS: BP 134/64; PULSE 64; RESP 16; O2SAT 97
--- NOTE | 2016-08-11 21:55 | RADRPT ---
EXAM DATE/TIME: 08/11/2016 21:23 [facility] COMPARISON: CHEST SINGLE AP, April 22, 2013, 23:33. INDICATIONS : Chest Pain, Short of Breath. MEDICAL HISTORY : Cardiovascular disease. Cerebrovascular disease. Hypertension. Hypercholesterolemia. Emphysema. Pancr eatitis. NH. CHF. CAD. GERD. Osteoporosis. Arthritis. Stroke. COPD. SURGICAL HISTORY : Cholecystectomy. ORIF left hip. Right temporal aneurysm repair. ENCOUNTER: Initial ACUITY: 1 day PAIN SCORE: 6/10 LOCATION: Bilateral chest FINDINGS: A single view of the chest demonstrates no focal consolidation or significant effusion. Minimal basil ar scarring or atelectasis. Heart size upper limits normal. Atherosclerotic and tortuous aorta. No pn eumothorax. CONCLUSION: 1. Minimal linear atelectasis or scarring at the bases. No significant effusion. Renato Winslow MD on August 11, 2016 at 21:52 Board Certified Radiologist. This report was verified electronically.
[2016-08-11 21:58] LABS: ANION GAP 8 MEQ/L (5-15); BICARBONATE 26.2 MEQ/L (21.0-32.0); BLOOD UREA NITROGEN 19 MG/DL (7-18); CHLORIDE 108 MEQ/L (98-107); GLOMERULAR FILTRATION RATE 42 ML/MIN (>89); MAGNESIUM 1.9 MG/DL (1.5-2.5); POTASSIUM 3.9 MEQ/L (3.5-5.1); SODIUM (NA) 142 MEQ/L (136-145)
[2016-08-11 22:05] LABS: CREATINE KINASE 97 U/L (26-192)
[2016-08-11] MEDS ORDERED: NITROGLYCERIN 0.4 MG SL 25 TABS/BTL SL PRN (22:15)
[2016-08-11 22:59] VITALS: O2SAT 97
[2016-08-12] VITALS (8 sets, daily range): BP systolic 164–180; BP diastolic 68–77; PULSE 57–66; RESP 18–19; TEMP 96.5–97.4; O2SAT 97–100
[2016-08-12 01:32] LABS: CREATINE KINASE 89 U/L (26-192)
[2016-08-12 03:46] LABS: CREATINE KINASE 105 U/L (26-192)
[2016-08-12 03:59] LABS: CKMB 1.5 NG/ML (0.5-3.6)
[2016-08-12] MEDS ORDERED: SODIUM CHLORIDE 0.9% FLUSH 5 ML FLUSH IVF SCH (09:00)
[2016-08-12] MEDS ORDERED: POTASSIUM CHLORIDE 10 MEQ CONTROLLED RELEASE TAB PO SCH (09:15)
[2016-08-12] MEDS ORDERED: FUROSEMIDE 20 MG TAB PO SCH (09:15)
[2016-08-12] MEDS ORDERED: METOPROLOL TARTRATE 25 MG TAB PO SCH (09:15)
[2016-08-12] MEDS ORDERED: CLOPIDOGREL 75 MG TAB PO SCH (09:15)
[2016-08-12] MEDS ORDERED: REGADENOSON INJ 0.4 MG/5 ML SYR ONE (11:06)
--- NOTE | 2016-08-12 12:33 | EKG ---
Date Performed: 08/11/2016 Time Performed: 21:04:47 PTAGE: 85 years EKG: Sinus rhythm NONSPECIFIC T-WAVE ABNORMALITY ABNORMAL ECG NO PREVIOUS TRACING DOCTOR: Demond Mercado Interpretating Date/Time 08/12/2016 12:33:22
--- NOTE | 2016-08-12 12:38 | EKG ---
Date Performed: 08/11/2016 Time Performed: 23:55:48 PTAGE: 85 years EKG: Sinus rhythm MODERATE T-WAVE ABNORMALITY, CONSIDER LATERAL ISCHEMIA POOR PRECORDIAL R-WAVE PROGRESSION ABNORMAL E CG PREVIOUS TRACING : 08/03/2014 06.51 DOCTOR: Demond Mercado Interpretating Date/Time 08/12/2016 12:36:25
--- NOTE | 2016-08-12 12:43 | EKG ---
Date Performed: 08/12/2016 Time Performed: 02:28:27 PTAGE: 85 years EKG: Sinus rhythm MODERATE T-WAVE ABNORMALITY, CONSIDER LATERAL ISCHEMIA POOR PRECORDIAL R-WAVE PROGRESSION ABNORMAL E CG PREVIOUS TRACING : 08/11/2016 23.55 DOCTOR: Demond Mercado Interpretating Date/Time 08/12/2016 12:42:58
--- NOTE | 2016-08-12 12:46 | EKG ---
Date Performed: 08/12/2016 Time Performed: 03:17:45 PTAGE: 85 years EKG: Sinus rhythm NONSPECIFIC T-WAVE ABNORMALITY POOR PRECORDIAL R-WAVE PROGRESSION ABNORMAL ECG PREVIOUS TRACING : 08/12/2016 02.28 DOCTOR: Demond Mercado Interpretating Date/Time 08/12/2016 12:44:58
--- NOTE | 2016-08-12 13:08 | RADRPT ---
EXAM DATE/TIME: 08/12/2016 10:49 [facility] COMPARISON: No previous studies available for comparison. INDICATIONS : Substernal chest pain. Angina. Coronary artery disease. DOSE: 25.4 mCi Tc99m Myoview at stress. 8.5 mCi Tc99m Myoview at rest. 0.4 mg Lexiscan STRESS SYMPTOMS: Nausea and dyspnea. EJECTION FRACTION: 65% MEDICAL HISTORY : Myocardial infarction. Chronic obstructive pulmonary disease. Gastroesophageal reflux disease. Hypert ension, emphysema, acid reflux and prior stroke. SURGICAL HISTORY : Carotid endarterectomy. Cholecystectomy. Abdominal aortic aneurysm repair. Cardiac stents and tempora l aneurysm repair. ENCOUNTER: Initial ACUITY: 1 day PAIN SCALE: 6/10 LOCATION: Substernal chest TECHNIQUE: The patient underwent pharmacologic stress with infusion of prescribed dose. Continuous ECG tracing was monitored during stress. Gated SPECT imaging was performed after stress and conventional SPECT i maging was performed at rest. The examination was performed on a SPECT/CT scanner, both attenuation and non-corrected datasets were reviewed. FINDINGS: DISTRIBUTION: The maximum perfused segment at stress is in the inferoseptal wall. PERFUSION STUDY: No reversible perfusion defects. Fixed defect again seen within the inferolateral wall. GATED STUDY: There is intact wall motion and thickening without hypokinetic or dyskinetic segments. CONCLUSION: No reversible perfusion to suggest ischemia. Old myocardial infarction in the inferolateral wall. RISK CATEGORY: Intermediate (1-3% Annual Mortality Rate) Colten Eugene MD on August 12, 2016 at 13:04 Board Certified Radiologist. This report was verified electronically.
[2016-08-12 14:34] LABS: BASOPHIL # 0.1 TH/MM3 (0-0.2); BASOPHIL % 0.9 % (0.0-2.0); EOSINOPHIL # 0.6 TH/MM3 (0-0.4); EOSINOPHIL % 8.3 % (0.0-4.0); HEMATOCRIT 35.2 % (35.0-46.0); HEMO FLAGS DIFF FINAL; LYMPH % 21.8 % (9.0-44.0); LYMPHOCYTE # 1.5 TH/MM3 (1.0-4.8); MEAN CELL VOLUME 85.8 FL (80.0-100.0); MEAN CORPUSCULAR HEMOGLOBIN 28.9 PG (27.0-34.0); MEAN CORPUSCULAR HGB CONC 33.7 % (32.0-36.0); MONO % 9.5 % (0.0-8.0); NEUT % 59.5 % (16.0-70.0); PLATELET COUNT 261 TH/MM3 (150-450); RED CELL DISTRIBUTION WIDTH 15.3 % (11.6-17.2); WHITE BLOOD COUNT 6.8 TH/MM3 (4.0-11.0)
[2016-08-12] MEDS ORDERED: PROT40TA PO (15:39)
[2016-08-12] MEDS ORDERED: AMLO2.5T PO (15:39)
--- NOTE | 2016-08-12 15:41 | HHI.DCPOC ---
Discharge Care Plan Diagnosis: (1) Chest pain (2) Coronary artery disease (3) H/O heart artery stent (4) HTN (hypertension) (5) PVD (peripheral vascular disease) (6) History of abdominal aortic aneurysm (AAA) (7) Renal insufficiency Goals to Promote Your Health DISCUSS WITH YOUR PRIMARY CARE PHYSICIAN CHOLESTEROL MEDICATIONS. * To prevent worsening of your condition and complications * To maintain your health at the optimal level Directions to Meet Your Goals Take your medications as prescribed Follow your dietary instruction Follow activity as directed Keep your appointments as scheduled Take your immunizations and boosters as scheduled If your symptoms worsen call your PCP, if no PCP go to Urgent Care Center or Emergency Room Smoking is Dangerous to Your Health. Avoid second hand smoke Call the 24-hour hour crisis hotline for domestic abuse at [facility] More Aug 12, 2016 15:41
--- NOTE | 2016-08-12 19:15 | TR ---
Date Performed: 08/12/2016 Time Performed: 11:48:41 DOCTOR: Demond Mercado DRUG LIST: CLINICAL HISTORY: CHEST PAIN REASON FOR TEST: CHEST PAIN REASON FOR ENDING: OBSERVATION: CONCLUSION: Lexiscan stress test was performed under standard four minute protocol. Radionuclide was injected one minute prior to ending the test. Developed dyspnea and nausea, systolic blood press ure was slightly elevated. Rare PACs were noted. No electrocardiographic abnormalities were present t o suggest ischemia. Recovery was quick and uneventful with resolution of symptoms, systolic blood pre ssure returned to normal. Nuclear imaging and interpretation are pending. COMMENTS:
--- NOTE | 2016-08-13 12:18 | MH ---
cc: MARISSA MERCADO DATE OF ADMISSION: 08/11/2016 DATE OF : 1930 CHIEF COMPLAINT Chest pain. HISTORY OF PRESENT ILLNESS This is a 85-year-old female that presents to the ED via [facility] with a complaint of discomfort in her chest. She describes a left-sided pain that began yesterday. It was intermittent. It would last about an hour at a time. She states that at times nitro did help. She had no shortness of breath, nausea, diaphoresis. She states that she had AL in 2006 and had a stent placed at that time. These symptoms do not feel similar to that episode. Upon reviewing her records she had an acute inferior STEMI in 2006 and had a stent of the left circumflex. In that heart catheterization, also mentioned left common iliac artery showed diffuse critical disease followed by an area of aneurysm. She was admitted to this hospital last week for a small-bowel obstruction. At the time a CT was obtained showing a 5.2 x 4 cm abdominal aortic aneurysm without evidence of rupture, also had mention of bowel obstruction. The patient also has a history of peripheral vascular disease and follows with Dr. Colon for this as well as carotid stenosis with history of left carotid enterectomy. With the symptoms yesterday she did not have any shortness of breath, nausea or diaphoresis. PAST MEDICAL HISTORY 1. Abdominal aortic aneurysm following Dr. Colon for this. 2. Peripheral vascular disease and she has had right to left fem-pop bypass. 3. CAD: The patient had a STEMI in 2006 with stent to the circumflex. 4. History of hypertension. 5. History of cerebral aneurysm with a clip. She denies any ___ hyperlipidemia, diabetes. FAMILY HISTORY Denies family history of CAD. SOCIAL HISTORY The patient quit smoking in 2006, prior to that she smoked for 50 years. Denies alcohol or illicit drugs. PAST SURGICAL HISTORY 1. Carotid endarterectomy. 2. Cardiac catheterization with stenting. 3. Stenting of the iliac artery. 4. Left fem-pop bypass. 5. Cholecystectomy. 6. She has aneurysm clip. ALLERGIES DILANTIN, PENICILLIN, SULFA, PERCOCET, VALIUM, ASPIRIN WHICH SHE STATES IF MORE OF AN ADVERSE REACTION WITH GI BLEED BUT CAN TAKE A BABY ASPIRIN ___. MEDICATIONS Current medications include: 1. Plavix. 2. Lasix. 3. Potassium. 4. Metoprolol. 5. Coenzyme. 6. Baby aspirin. REVIEW OF SYSTEMS GENERAL: Denies fevers or chills. States she had a recent admission for obstruction. However, she states her abdominal pain has resolved. She had normal bowel movement yesterday. HEENT: Denies headache, earache, sore throat, difficulty swallowing. CARDIOVASCULAR: Describes the discomfort as mentioned above. Denies diaphoresis. Denies sensation of heart beating rapidly or irregularly. No syncope. States these symptoms do not feel similar to when she had stenting in 2006. RESPIRATORY: Denies shortness of breath or inspirational chest discomfort. Denies coughing, wheezing or hemoptysis. GI: Denies nausea, vomiting, diarrhea, abdominal pain or blood in stool. Last bowel movement was yesterday. MUSCULOSKELETAL: Denies joint pain or edema. Denies calf pain or edema. NEUROVASCULAR: Denies headache or dizziness. ENDOCRINE: Denies polyuria or polydipsia. HEMATOLOGIC: Denies easy bruising. SKIN: Denies rash or itching. PHYSICAL EXAMINATION VITAL SIGNS: In the emergency department initially included a blood pressure of 134/64, heart rate 64, respirations 16, pulse oximetry 97& on 2 liters nasal cannula. Most recent vital signs include blood pressure 170/72, heart rate 66, respirations 18, pulse oximetry 99% on room air and she was afebrile. GENERAL: The patient is seen in the examination room, in no apparent distress. She is very pleasant. Her daughter is also at the bedside. HEENT: Head is atraumatic and normocephalic. NECK: Neck is supple without lymphadenopathy. Trachea is midline. No JVD. Bilateral carotid bruits are present. CARDIOVASCULAR: Regular rate and rhythm without gallop or rub. Grade 2 systolic murmur at the sternal border. RESPIRATORY: Lungs are clear to auscultation bilaterally. No wheezing, rales or rhonchi. No use of accessory muscles. There is reproducible discomfort to the left side of her chest which is similar to the discomfort she has been having. GI: Abdomen is nontender, nondistended. Bowel sounds are normal. No guarding or rebound. No obvious pulsatile mass or bruit. No CVA tenderness. Strong femoral pulses bilaterally. MUSCULOSKELETAL: Patient moving upper and lower extremities freely. No joint tenderness or edema. No calf tenderness or edema, no Homans' sign. Strong pulses in upper and lower extremities. NEUROVASCULAR: The patient is alert and oriented. Cranial nerves II-XII are grossly intact. No focal deficits and speech is clear. SKIN: No rash and turgor is normal. LABORATORY DATA CBC has hemoglobin and hematocrit decreased at 10.0 and 30.5. Otherwise, essentially unremarkable CBC. Coagulation studies are unremarkable. Basic metabolic panel has a creatinine elevated at 1.22, BUN elevated at 19, GFR is decreased at 42. Serial cardiac enzymes normal times three. IMAGING STUDIES Single view chest x-ray read by radiologist as minimal atelectasis or scarring at the bases, no significant effusion. EKGs Have sinus rhythm with nonspecific lateral T-wave changes. No significant ST-segment depression or elevation. ASSESSMENT AND PLAN 1. Chest pain: The patient does have history of CAD. She had serial cardiac enzymes and EKGs. She has been seen by Dr. Mercado in the chest pain center. She is not currently being followed by [facility] in the outpatient setting. At this time she will have a Lexiscan, if that were to be nonischemic, she will likely be discharged home and instructed to follow up with her physician. If stress test were to be abnormal we would address at the time. 2. Hypertension: Continue current medication. 3. Peripheral vascular disease: Continue current medication. 4. CAD: The patient has history CAD with stenting. We will reassess with stress testing. The patient is not on statin therapy. She states her cholesterol panels are good, however, she probably still should be taking a statin unless contraindicated. She will need to discuss it with her physician. 5. Abdominal aortic aneurysm: The patient has aneurysm as stated above. She follows with Dr. Colon for this. The patient is stable at this time. She is agreeable to this plan. Dictated by: Wei More PA-C MD LIV Anthony/ABHAY /10:29 AM /12:17 PM
== END 2016-08-12 17:00 | disposition home or self-care (01) ==
LOC: NEPE 20:50 → NEDA 22:12 → NEPHCDU 08-12 00:50
PROVIDERS: ADMIT Family Medicine; ATTEND Family Medicine
DX: R07.89 Other chest pain (principal); I10 Essential (primary) hypertension; I25.10 Atherosclerotic heart disease of native coronary artery without angina pectoris; I73.9 Peripheral vascular disease, unspecified; I71.4 Abdominal aortic aneurysm, without rupture; R94.31 Abnormal electrocardiogram [ECG] [EKG]; I25.2 Old myocardial infarction; E78.5 Hyperlipidemia, unspecified; E11.9 Type 2 diabetes mellitus without complications; J44.9 Chronic obstructive pulmonary disease, unspecified; K21.9 Gastro-esophageal reflux disease without esophagitis; E78.00 Pure hypercholesterolemia, unspecified; M81.0 Age-related osteoporosis without current pathological fracture; Z95.5 Presence of coronary angioplasty implant and graft; Z86.73 Personal history of transient ischemic attack (TIA), and cerebral infarction without residual deficits; Z87.891 Personal history of nicotine dependence
CPT/HCPCS: 71010; 78452; 80048; 82550; 82552; 83735; 84484; 85025; 85610; 85730; 93005; 93017; 99285; A9502; G0378; J2785

== ENCOUNTER 2016-09-18 20:41 | Observation (INO) | payer MEDICARE, BC ==
[~2016-09-18] VITALS: Ht 154.9 cm; Wt 45.0 kg
[~2016-09-18 20:41] MED LIST changes: +AMLO2.5T PO; +PROT40TA PO
[2016-09-18 20:43] VITALS: BP 134/74; PULSE 71; RESP 18; TEMP 98.4; O2SAT 98
[2016-09-18 21:28] VITALS: RESP 18; O2SAT 96
[2016-09-18] MEDS ORDERED: SODIUM CHLORIDE 0.9% FLUSH 5 ML FLUSH IVF PRN (21:30)
--- NOTE | 2016-09-18 21:57 | RADRPT ---
EXAM DATE/TIME: 09/18/2016 21:46 [facility] COMPARISON: CHEST SINGLE AP, August 11, 2016, 21:23. INDICATIONS : Palpitations. MEDICAL HISTORY : Myocardial infarction. Hypertension Chronic obstructive pulmonary disease. SURGICAL HISTORY : Coronary artery stent. ENCOUNTER: Initial ACUITY: 1 day PAIN SCORE: 0/10 LOCATION: Bilateral chest FINDINGS: A single view of the chest demonstrates the lungs to be symmetrically hyperinflated without evidence of mass, infiltrate or effusion. The cardiomediastinal contours are unremarkable. Atherosclerotic ca lcifications are present in the aorta. There is stable scarring at the left lung base. Osseous struc tures are intact. CONCLUSION: 1. Underlying emphysema and scarring. 2. No acute cardiopulmonary disease. Marcus Sotomayor MD on September 18, 2016 at 21:54 Board Certified Radiologist. This report was verified electronically.
[2016-09-18 22:03] LABS: AUTOMATED NEUTROPHIL # 2.7 TH/MM3 (1.8-7.7); BASOPHIL # 0.1 TH/MM3 (0-0.2); BASOPHIL % 2.6 % (0.0-2.0); EOSINOPHIL # 0.2 TH/MM3 (0-0.4); EOSINOPHIL % 5.1 % (0.0-4.0); HEMATOCRIT 33.8 % (35.0-46.0); HEMO FLAGS DIFF FINAL; LYMPH % 28.3 % (9.0-44.0); LYMPHOCYTE # 1.4 TH/MM3 (1.0-4.8); MEAN CELL VOLUME 86.6 FL (80.0-100.0); MEAN CORPUSCULAR HEMOGLOBIN 28.8 PG (27.0-34.0); MEAN CORPUSCULAR HGB CONC 33.2 % (32.0-36.0); MONO % 8.6 % (0.0-8.0); NEUT % 55.4 % (16.0-70.0); PLATELET COUNT 250 TH/MM3 (150-450); WHITE BLOOD COUNT 4.9 TH/MM3 (4.0-11.0)
[2016-09-18 22:26] LABS: ANION GAP 10 MEQ/L (5-15); BICARBONATE 23.4 MEQ/L (21.0-32.0); BLOOD UREA NITROGEN 29 MG/DL (7-18); CHLORIDE 111 MEQ/L (98-107); CREATINE KINASE 108 U/L (26-192); GLOMERULAR FILTRATION RATE 36 ML/MIN (>89); MAGNESIUM 2.1 MG/DL (1.5-2.5); SODIUM (NA) 144 MEQ/L (136-145)
[2016-09-18 22:26] LABS: BLOOD, URINE NEG (NEG); GLUCOSE,URINE NEG (NEG); KETONE, URINE NEG (NEG); NITRITE,URINE NEG (NEG); SQUAMOUS EPITHELIAL CELL URINE <1 /hpf (0-5); URINE COLOR YELLOW (YELLW/STRAW)
[2016-09-18 22:28] LABS: COMMENT (UR) CULT NOT INDICATED; CULTURE IF INDICATED CULT NOT INDICATED
[2016-09-18 22:29] LABS: POTASSIUM 4.2 MEQ/L (3.5-5.1)
[2016-09-18 22:41] LABS: CKMB 2.1 NG/ML (0.5-3.6)
[2016-09-18] MEDS ORDERED: SODIUM CHLOR 0.9% 1000 ML INJ 1,000 ML IV ONE (23:15)
--- NOTE | 2016-09-18 23:30 | PD ---
HPI Chief Complaint: General Weakness Time Seen by Provider: 21:13 Travel History International Travel<30 days: No Contact w/Intl Traveler<30days: No Traveled to known affect area: No History of Present Illness HPI 85yo F with PMH of CAD s/p NH and stent 2006, AAA 5.2 by 4cm, PVD, HTN, cerebral aneurysm presents to the ED with c/o episode of near syncope today. Pt was standing up and described it as a warm sensation and lightheadedness. States she felt as if she was about to pass out but did not. Denies any chest pain, sob, n/v, abdominal pain, focal weakness or numbness. PFSH Past Medical History AAA: Yes Arthritis: Yes Autoimmune Disease: No Blood Disorders: No Anxiety: Yes Depression: No Heart Rhythm Problems: No Cancer: No Cardiac Catheterization: Yes Cardiovascular Problems: Yes (NH 1973, AAA, L OPTICAL ARTERY ANEURYSM, CARDIAC STENT) High Cholesterol: Yes Chest Pain: Yes Congestive Heart Failure: Yes COPD: Yes Cerebrovascular Accident: Yes Coronary Artery Disease: Yes Diabetes: No Diminished Hearing: No Endocrine: No Gastrointestinal Disorders: Yes (ACID REFLUX) GERD: Yes Genitourinary: No Headaches: No Hepatitis: No Hiatal Hernia: No Heparin Induced Thrombocytopen: No Hypertension: Yes Immune Disorder: No Implanted Vascular Access Dvce: No Kidney Stones: No Medical other: Yes (LEFT TEMPORAL ANEURYSM) Musculoskeletal: Yes (OSTEOPOROSIS) Neurologic: Yes (STROKE 1973) Psychiatric: No Reproductive: No Respiratory: Yes (EMPHYSEMA) Immunizations Current: Yes Migraines: No Myocardial Infarction: Yes Pancreatitis: Yes Renal Failure: No Seizures: No Sleep Apnea: No Thyroid Disease: No Ulcer: No Influenza Vaccination: Yes Menopausal: No : 4 Para: 3 Miscarriage: 1 Past Surgical History Abdominal Surgery: Yes (LAP. [place]) AICD: No Arteriovenous Shunt: No Body Medical Devices: CARDIAC STENT, ANEURYSM CLIP Cardiac Surgery: Yes (CARDIAC STENT 1973) Cholecystectomy: Yes Coronary Artery Bypass Graft: No Coronary Stent: Yes Ear Surgery: No Endocrine Surgery: No Eye Surgery: Yes (RIGHT OPTIC NERVE CLIP) Genitourinary Surgery: No Gynecologic Surgery: No Insulin Pump: No Joint Replacement: No Neurologic Surgery: Yes (R TEMPORAL ANEURYSM REPAIR.) Oral Surgery: No Pacemaker: No Thoracic Surgery: No Other Surgery: Yes (LEFT CAROTID ENDARTARECTOMY) Family History Family Myocardial Infarction: No Social History Alcohol Use: Yes Tobacco Use: No (QUIT 2006) Substance Use: No Allergies-Medications (Allergen,Severity, Reaction): Coded Allergies: Dilantin (Verified Allergy, Severe, Rash, 09/18/16) Penicillin (Verified Allergy, Severe, Swelling, 09/18/16) Sulfa (Unverified Allergy, Severe, Rash, 09/18/16) MRI PRECAUTION (Verified Adverse Reaction, Severe, ANEURYSM CLIP CX PER S MILES ADB, 09/18/16) Percocet (Verified Adverse Reaction, Severe, Hallucinations, 09/18/16) Valium (Verified Adverse Reaction, Severe, HALLUCINATIONS, 09/18/16) Aspirin (Verified Adverse Reaction, Intermediate, Bleeding, 09/18/16) PT STATES IT IS "FULL STRENGTH ASA",BABY ASA OK. FULL STRENGTH GIVES HER A NOSE BLEED Reported Meds & Prescriptions Reported Meds & Active Scripts Active Amlodipine (Amlodipine Besylate) 2.5 Mg Tab 2.5 Mg PO DAILY Protonix (Pantoprazole Sodium) 40 Mg Tab 40 Mg PO DAILY Reported Coenzyme Q-10 High Potency (Coenzyme Q10 (Ubidecarenone)) 200 Mg Cap 100 Mg PO DAILY Metoprolol Tartrate 25 Mg Tab 25 Mg PO DAILY Potassium Chloride ER (Potassium Chloride) 10 Meq Tab 10 Meq PO BID Lasix (Furosemide) 20 Mg Tab 20 Mg PO DAILY Clopidogrel (Clopidogrel Bisulfate) 75 Mg Tab 75 Mg PO DAILY Aspirin 81 Mg Tabdr 81 Mg PO DAILY Review of Systems Except as stated in HPI: all other systems reviewed are Neg Physical Exam Narrative GENERAL: 85yo F not in distress. SKIN: Warm and dry. HEAD: Atraumatic. Normocephalic. EYES: Pupils equal and round. EOMI. No scleral icterus. No injection or drainage. ENT: No nasal bleeding or discharge. Mucous membranes pink and moist. NECK: Trachea midline. No JVD. CARDIOVASCULAR: Regular rate and rhythm. No murmur appreciated. RESPIRATORY: No accessory muscle use. Clear to auscultation. Breath sounds equal bilaterally. GASTROINTESTINAL: Abdomen soft, non-tender, nondistended. No rebound tenderness or guarding. MUSCULOSKELETAL: No obvious deformities. No clubbing. No cyanosis. No edema. NEUROLOGICAL: Awake and alert. No obvious cranial nerve deficits. Motor grossly within normal limits. Normal speech. PSYCHIATRIC: Appropriate mood and affect; insight and judgment normal. Data Data Last Documented VS Vital Signs Date Time Temp Pulse Resp B/P Pulse Ox O2 Delivery O2 Flow Rate FiO2 09/18/16 21:28 18 96 Room Air 09/18/16 20:43 98.4 71 134/74 Orders Electrocardiogram (09/18/16 21:23) Basic Metabolic Panel (Bmp) (09/18/16 21:23) Complete Blood Count With Diff (09/18/16 21:23) Magnesium (Mg) (09/18/16 21:23) Ckmb (Isoenzyme) Profile (09/18/16 21:23) Troponin I (09/18/16 21:23) Urinalysis - C+S If Indicated (09/18/16 21:23) Chest, Single Ap (09/18/16:23) Ecg Monitoring (09/18/16 21:23) Iv Access Insert/Monitor (09/18/16 21:23) Oximetry (09/18/16 21:23) Sodium Chloride 0.9% Flush (Ns Flush) (09/18/16 21:30) CKMB (09/18/16 21:20) CKMB% (09/18/16 21:20) Orthostatic Blood Pressure (09/18/16 22:45) Sodium Chlor 0.9% 1000 Ml Inj (Ns 1000 M (09/18/16 23:15) Admit Order (Ed Use Only) (09/18/16 23:37) Labs Laboratory Tests Test 09/18/16 09/18/16 21:20 22:00 White Blood Count 4.9 TH/MM3 Red Blood Count 3.90 MIL/MM3 Hemoglobin 11.2 GM/DL Hematocrit 33.8 % Mean Corpuscular Volume 86.6 FL Mean Corpuscular Hemoglobin 28.8 PG Mean Corpuscular Hemoglobin 33.2 % Concent Red Cell Distribution Width 15.0 % Platelet Count 250 TH/MM3 Mean Platelet Volume 8.4 FL Neutrophils (%) (Auto) 55.4 % Lymphocytes (%) (Auto) 28.3 % Monocytes (%) (Auto) 8.6 % Eosinophils (%) (Auto) 5.1 % Basophils (%) (Auto) 2.6 % Neutrophils # (Auto) 2.7 TH/MM3 Lymphocytes # (Auto) 1.4 TH/MM3 Monocytes # (Auto) 0.4 TH/MM3 Eosinophils # (Auto) 0.2 TH/MM3 Basophils # (Auto) 0.1 TH/MM3 CBC Comment DIFF FINAL Differential Comment Sodium Level 144 MEQ/L Potassium Level 4.2 MEQ/L Chloride Level 111 MEQ/L Carbon Dioxide Level 23.4 MEQ/L Anion Gap 10 MEQ/L Blood Urea Nitrogen 29 MG/DL Creatinine 1.37 MG/DL Estimat Glomerular Filtration 36 ML/MIN Rate Random Glucose 112 MG/DL Calcium Level 8.3 MG/DL Magnesium Level 2.1 MG/DL Total Creatine Kinase 108 U/L Creatine Kinase MB 2.1 NG/ML Troponin I LESS THAN 0.02 NG/ML Urine Color YELLOW Urine Turbidity CLEAR Urine pH 6.0 Urine Specific [place] 1.011 Urine Protein NEG mg/dL Urine Glucose (UA) NEG mg/dL Urine Ketones NEG mg/dL Urine Occult Blood NEG Urine Nitrite NEG Urine Bilirubin NEG Urine Urobilinogen LESS THAN 2.0 MG/DL Urine Leukocyte Esterase NEG Urine RBC LESS THAN 1 /hpf Urine WBC LESS THAN 1 /hpf Urine Squamous Epithelial <1 /hpf Cells Microscopic Urinalysis Comment CULT NOT INDICATED MDM Medical Decision Making Medical Screen Exam Complete: Yes Emergency Medical Condition: Yes Interpretation(s) EKG: NSR 68bpm. Normal axis. TWI I, aVL, V4-V6. Unchanged from prior. Laboratory Tests Test 09/18/16 09/18/16 21:20 22:00 White Blood Count 4.9 TH/MM3 (4.0-11.0) Red Blood Count 3.90 MIL/MM3 (4.00-5.30) Hemoglobin 11.2 GM/DL (11.6-15.3) Hematocrit 33.8 % (35.0-46.0) Mean Corpuscular Volume 86.6 FL (80.0-100.0) Mean Corpuscular Hemoglobin 28.8 PG (27.0-34.0) Mean Corpuscular Hemoglobin 33.2 % Concent (32.0-36.0) Red Cell Distribution Width 15.0 % (11.6-17.2) Platelet Count 250 TH/MM3 (150-450) Mean Platelet Volume 8.4 FL (7.0-11.0) Neutrophils (%) (Auto) 55.4 % (16.0-70.0) Lymphocytes (%) (Auto) 28.3 % (9.0-44.0) Monocytes (%) (Auto) 8.6 % (0.0-8.0) Eosinophils (%) (Auto) 5.1 % (0.0-4.0) Basophils (%) (Auto) 2.6 % (0.0-2.0) Neutrophils # (Auto) 2.7 TH/MM3 (1.8-7.7) Lymphocytes # (Auto) 1.4 TH/MM3 (1.0-4.8) Monocytes # (Auto) 0.4 TH/MM3 (0-0.9) Eosinophils # (Auto) 0.2 TH/MM3 (0-0.4) Basophils # (Auto) 0.1 TH/MM3 (0-0.2) CBC Comment DIFF FINAL Differential Comment Sodium Level 144 MEQ/L (136-145) Potassium Level 4.2 MEQ/L (3.5-5.1) Chloride Level 111 MEQ/L (98-107) Carbon Dioxide Level 23.4 MEQ/L (21.0-32.0) Anion Gap 10 MEQ/L (5-15) Blood Urea Nitrogen 29 MG/DL (7-18) Creatinine 1.37 MG/DL (0.50-1.00) Estimat Glomerular Filtration 36 ML/MIN (>89) Rate Random Glucose 112 MG/DL (74-106) Calcium Level 8.3 MG/DL (8.5-10.1) Magnesium Level 2.1 MG/DL (1.5-2.5) Total Creatine Kinase 108 U/L (26-192) Creatine Kinase MB 2.1 NG/ML (0.5-3.6) Troponin I LESS THAN 0.02 NG/ML (0.02-0.05) Urine Color YELLOW (YELLW/STRAW) Urine Turbidity CLEAR (CLEAR) Urine pH 6.0 (5.0-8.5) Urine Specific [place] 1.011 (1.002-1.035) Urine Protein NEG mg/dL (NEG-TRACE) Urine Glucose (UA) NEG mg/dL (NEG) Urine Ketones NEG mg/dL (NEG) Urine Occult Blood NEG (NEG) Urine Nitrite NEG (NEG) Urine Bilirubin NEG (NEG) Urine Urobilinogen LESS THAN 2.0 MG/DL (LESS THAN 2.0) Urine Leukocyte Esterase NEG (NEG) Urine RBC LESS THAN 1 /hpf (0-3) Urine WBC LESS THAN 1 /hpf (0-5) Urine Squamous Epithelial <1 /hpf (0-5) Cells Microscopic Urinalysis Comment CULT NOT INDICATED Last Impressions Chest X-Ray 09/18/162122 Signed Impressions: Service Date/Time: Sunday, September 18, 2016 21:46 - CONCLUSION: 1. Underlying emphysema and scarring. 2. No acute cardiopulmonary disease. Marcus Sotomayor MD Differential Diagnosis Vasovagal near syncope vs. dehydration vs. electrolyte abnormality vs. arrhythmia Narrative Course 85yo F with episode of near syncope. Labs reviewed, no leukocytosis. H/H 11.2/ 33.8. BUN/creatinine elevated at 29/1.37 compared to 19/1.22 on 08/11/16. Pt likely dehydration. Given 1 liter of NS IVF. Troponin negative. UA showed no leukocyte. Pt feels better. However, pt has significant cardiac history and would like to admit her for observation for dehydration and near syncope with telemetry monitoring. Discussed with Dr. Hutson and accepted to his service. Diagnosis Primary Impression: Near syncope Additional Impression: Dehydration Admitting Information Admitting Physician Requests: Observation Karen Jay DO Sep 18, 2016 23:30
[2016-09-18] MEDS ORDERED: SODIUM CHLOR 0.9% 1000 ML INJ 1,000 ML IV SCH (23:40)
[2016-09-18] MEDS ORDERED: MAGNESIUM HYDROXIDE SUSP 30 ML CUP PO PRN (23:45)
[2016-09-18] MEDS ORDERED: ACETAMINOPHEN 325 MG TAB PO PRN (23:45)
[2016-09-18] MEDS ORDERED: ONDANSETRON HCL 4 MG/2 ML VIAL IVP PRN (23:45)
[2016-09-18] MEDS ORDERED: NALOXONE HCL 0.4 MG/ML AMP IV PRN (23:45)
[2016-09-19] VITALS (8 sets, daily range): BP systolic 115–160; BP diastolic 56–81; PULSE 62–104; RESP 16–22; TEMP 97.8–98.1; O2SAT 94–97
--- NOTE | 2016-09-19 00:15 | HHI.HP ---
[facility] Calli Nguyen MD Admission Diagnosis Near syncope, dehydration Diagnoses: Travel History International Travel<30 Days: No Contact w/Intl Traveler <30 Da: No Traveled to Known Affected Are: No History of Present Illness 85-year-old female with a history of CAD status post [place] and stent placement 2006 , PVD, hypertension, AAA presents to the ED with complaints of feeling dizzy and almost passing out. Patient states she went to stand up today and felt very dizzy, flushed and patches point. She denies any LOC. She also denies any chest pain, short of breath, fever, chills. She states she has been feeling fine up until the episode today. She denies any recent illness, or being around anyone who is sick. She currently lives alone. Review of Systems Constitutional: COMPLAINS OF: Dizziness, DENIES: Fever, Chills Respiratory: DENIES: Cough, Sputum production, Shortness of breath Cardiovascular: DENIES: Chest pain, Lower Extremity Edema Gastrointestinal: COMPLAINS OF: Constipation, DENIES: Diarrhea, Nausea, Vomiting Genitourinary: DENIES: Hematuria, Dysuria Musculoskeletal: DENIES: Back pain, Neck pain Integumentary: DENIES: Rash Hematologic/lymphatic: DENIES: Lymphadenopathy Neurologic: COMPLAINS OF: Poor Balance, DENIES: Headache, Localized weakness Past Family Social History Past Medical History HTN AAA CAD NE Right eye artery removal Macular degeneration Past Surgical History Iliac artery bypass AAA repair Cardiac stents Reported Medications Reported Meds & Active Scripts Active Amlodipine (Amlodipine Besylate) 2.5 Mg Tab 2.5 Mg PO DAILY Protonix (Pantoprazole Sodium) 40 Mg Tab 40 Mg PO DAILY Reported Coenzyme Q-10 High Potency (Coenzyme Q10 (Ubidecarenone)) 200 Mg Cap 100 Mg PO DAILY Metoprolol Tartrate 25 Mg Tab 25 Mg PO DAILY Potassium Chloride ER (Potassium Chloride) 10 Meq Tab 10 Meq PO BID Lasix (Furosemide) 20 Mg Tab 20 Mg PO DAILY Clopidogrel (Clopidogrel Bisulfate) 75 Mg Tab 75 Mg PO DAILY Aspirin 81 Mg Tabdr 81 Mg PO DAILY Allergies: Coded Allergies: Dilantin (Verified Allergy, Severe, Rash, 09/18/16) Penicillin (Verified Allergy, Severe, Swelling, 09/18/16) Sulfa (Unverified Allergy, Severe, Rash, 09/18/16) MRI PRECAUTION (Verified Adverse Reaction, Severe, ANEURYSM CLIP CX PER S MILES ADB, 09/18/16) Percocet (Verified Adverse Reaction, Severe, Hallucinations, 09/18/16) Valium (Verified Adverse Reaction, Severe, HALLUCINATIONS, 09/18/16) Aspirin (Verified Adverse Reaction, Intermediate, Bleeding, 09/18/16) PT STATES IT IS "FULL STRENGTH ASA",BABY ASA OK. FULL STRENGTH GIVES HER A NOSE BLEED Active Ordered Medications Current Medications Medications (Trade) Dose Ordered Sig/Lisa Route Start Time Stop Time Status Last Admin IV Flush 2 ml 2 ml UNSCH PRN IVF 09/18/16 21:30 Sodium Chloride 1,000 ml @ 999 mls/hr BOLUS ONCE IV 09/18/16 23:15 09/19/16 00:15 09/19/16 00:02 (NS 1000 ml Inj) 1,000 ml @ 50 mls/hr Q20H IV 09/18/16 23:40 09/19/16 00:02 (Tylenol) 650 mg Q4H PRN PO 09/18/16 23:45 (Zofran Inj) 4 mg Q6H PRN IVP 09/18/16 23:45 (Milk Of Magnesia Liq) 30 ml Q12H PRN PO 09/18/16 23:45 (Narcan Inj) 0.4 mg UNSCH PRN IV 09/18/16 23:45 Family History Family history significant for diabetes Parents of old age, mother in her late 70s, father in his 90s Social History Tobacco use: quit 8 years ago Alcohol use: weekly Physical Exam Vital Signs Vital Signs Date Time Temp Pulse Resp B/P Pulse Ox O2 Delivery O2 Flow Rate FiO2 09/18/16 21:28 18 96 Room Air 09/18/16 20:43 98.4 71 18 134/74 98 Physical Exam GENERAL: This is a thin patient, in no apparent distress. SKIN: No rashes, ecchymoses or lesions. Cool and dry. HEAD: Atraumatic. Normocephalic. No temporal or scalp tenderness. EYES: Pupils equal round and reactive. Extraocular motions intact. No scleral icterus. No injection or drainage. ENT: Nose without bleeding, purulent drainage or septal hematoma. Throat without erythema, tonsillar hypertrophy or exudate. Uvula midline. Airway patent. NECK: Trachea midline. No JVD or lymphadenopathy. Supple, nontender, no meningeal signs. CARDIOVASCULAR: Regular rate and rhythm without murmurs, gallops, or rubs. RESPIRATORY: Clear to auscultation. Breath sounds equal bilaterally. No wheezes , rales, or rhonchi. GASTROINTESTINAL: Abdomen soft, non-tender, nondistended. No hepato-splenomegaly , or palpable masses. No guarding. MUSCULOSKELETAL: Extremities without clubbing, cyanosis, or edema. No joint tenderness, effusion, or edema noted. No calf tenderness. NEUROLOGICAL: Awake and alert.Motor and sensory grossly within normal limits. . Normal speech. Laboratory Laboratory Tests Test 09/18/16 09/18/16 21:20 22:00 White Blood Count 4.9 Red Blood Count 3.90 Hemoglobin 11.2 Hematocrit 33.8 Mean Corpuscular Volume 86.6 Mean Corpuscular Hemoglobin 28.8 Mean Corpuscular Hemoglobin 33.2 Concent Red Cell Distribution Width 15.0 Platelet Count 250 Mean Platelet Volume 8.4 Neutrophils (%) (Auto) 55.4 Lymphocytes (%) (Auto) 28.3 Monocytes (%) (Auto) 8.6 Eosinophils (%) (Auto) 5.1 Basophils (%) (Auto) 2.6 Neutrophils # (Auto) 2.7 Lymphocytes # (Auto) 1.4 Monocytes # (Auto) 0.4 Eosinophils # (Auto) 0.2 Basophils # (Auto) 0.1 CBC Comment DIFF FINAL Differential Comment Sodium Level 144 Potassium Level 4.2 Chloride Level 111 Carbon Dioxide Level 23.4 Anion Gap 10 Blood Urea Nitrogen 29 Creatinine 1.37 Estimat Glomerular Filtration 36 Rate Random Glucose 112 Calcium Level 8.3 Magnesium Level 2.1 Total Creatine Kinase 108 Creatine Kinase MB 2.1 Troponin I LESS THAN 0.02 Urine Color YELLOW Urine Turbidity CLEAR Urine pH 6.0 Urine Specific [place] 1.011 Urine Protein NEG Urine Glucose (UA) NEG Urine Ketones NEG Urine Occult Blood NEG Urine Nitrite NEG Urine Bilirubin NEG Urine Urobilinogen LESS THAN 2.0 Urine Leukocyte Esterase NEG Urine RBC LESS THAN 1 Urine WBC LESS THAN 1 Urine Squamous Epithelial <1 Cells Microscopic Urinalysis Comment CULT NOT INDICATED Result Diagram: 09/18/16211909/18/162119 Imaging Last Impressions Chest X-Ray 09/18/162122 Signed Impressions: Service Date/Time: Sunday, September 18, 2016 21:46 - CONCLUSION: 1. Underlying emphysema and scarring. 2. No acute cardiopulmonary disease. Marcus Sotomayor MD Assessment and Plan Problem List: (1) Dehydration ICD Code: E86.0 Status: Acute (2) HTN (hypertension) ICD Code: I10 Status: Chronic Assessment and Plan 85-year-old female with a history of CAD status post [place] and stent placement 2006 , PVD, hypertension, AAA presents to the ED with complaints of feeling dizzy and almost passing out. Dehydration Labs creatinine 1.3 baseline 1.2 -Gentle IVF hydration -Trend BMP in a.m. -Hold lasix HTN, chronic -Restart home medications amlodipine and metoprolol DVT prophylaxis: SCDs Written by Claritza GILLIAM, acting as scribe for Dr. Augustine on 09/19/16 at 0010. Discussed Condition With Patient and RN Attending Statement All or portions of this note were transcribed by scribe TAWANA Mckinley. I, Dr. Lorenzo Augustine personally performed the history, physical exam, and medical decision making; and confirmed the accuracy of the information in the transcribed note. Authenticated by Dr. Lorenzo Augustine on 09/19/16 at 01:03. Claritza Vanegas Sep 19, 2016 00:15 Lorenzo Augustine MD Sep 19, 2016 01:03
[2016-09-19] MEDS ORDERED: PILL SPLITTER OTHER PRN (01:00)
[2016-09-19 04:09] LABS: AUTOMATED NEUTROPHIL # 3.4 TH/MM3 (1.8-7.7); BASOPHIL # 0.1 TH/MM3 (0-0.2); BASOPHIL % 1.9 % (0.0-2.0); EOSINOPHIL # 0.2 TH/MM3 (0-0.4); EOSINOPHIL % 2.5 % (0.0-4.0); HEMATOCRIT 34.7 % (35.0-46.0); HEMO FLAGS DIFF FINAL; LYMPH % 33.7 % (9.0-44.0); LYMPHOCYTE # 2.2 TH/MM3 (1.0-4.8); MEAN CORPUSCULAR HGB CONC 32.9 % (32.0-36.0); MONO % 9.5 % (0.0-8.0); NEUT % 52.4 % (16.0-70.0); PLATELET COUNT 225 TH/MM3 (150-450); RED BLOOD COUNT 4.08 MIL/MM3 (4.00-5.30); RED CELL DISTRIBUTION WIDTH 14.6 % (11.6-17.2); WHITE BLOOD COUNT 6.5 TH/MM3 (4.0-11.0)
[2016-09-19 04:30] LABS: BICARBONATE 24.6 MEQ/L (21.0-32.0); POTASSIUM 4.6 MEQ/L (3.5-5.1)
[2016-09-19] MEDS: PANTOPRAZOLE SOD 40 MG DELAYED RELEASE TAB PO SCH (08:39)
[2016-09-19] MEDS: METOPROLOL TARTRATE 25 MG TAB PO SCH (08:39)
[2016-09-19] MEDS: amLODIPine BESYLATE 5 MG TAB PO SCH (08:40)
[2016-09-19] MEDS: CLOPIDOGREL 75 MG TAB PO SCH (08:41)
[2016-09-19 11:20] LABS: BICARBONATE 26.6 MEQ/L (21.0-32.0); POTASSIUM 4.2 MEQ/L (3.5-5.1)
--- NOTE | 2016-09-19 12:03 | HHI.PR ---
Subjective Remarks f/u for lightheadedness. She stated she felt lightheadedness while she was playing bingo. Denied any CP, SOB, or palpitations. She stated she had a good meal and did not think she was dehydrated. Asymptomatic at the moment. Objective Vitals Vital Signs Date Time Temp Pulse Resp B/P Pulse Ox O2 Delivery O2 Flow Rate FiO2 09/19/16 11:00 81 18 155/72 97 Room Air 09/19/16 07:00 98.1 84 19 160/75 95 Room Air 09/18/16 21:28 18 96 Room Air 09/18/16 20:43 98.4 71 18 134/74 98 I/O 09/18/16 09/18/16 09/18/16 09/19/16 09/19/16 09/19/16 07:00 15:00 23:00 07:00 15:00 23:00 Intake Total 240 ml Balance 240 ml Intake Oral 240 ml # Bowel Movements 2 Result Diagram: 09/19/16 0352 09/19/16 1047 Imaging Last Impressions Chest X-Ray 09/18/162122 Signed Impressions: Service Date/Time: Sunday, September 18, 2016 21:46 - CONCLUSION: 1. Underlying emphysema and scarring. 2. No acute cardiopulmonary disease. Marcus Sotomayor MD Objective Remarks GENERAL: SKIN: Warm and dry. HEAD: Normocephalic. EYES: No scleral icterus. No injection or drainage. NECK: Supple, trachea midline. No JVD or lymphadenopathy. CARDIOVASCULAR: Regular rate and rhythm without murmurs, gallops, or rubs. RESPIRATORY: Breath sounds equal bilaterally. No accessory muscle use. GASTROINTESTINAL: Abdomen soft, non-tender, nondistended. MUSCULOSKELETAL: No cyanosis, or edema. BACK: Nontender without obvious deformity. No CVA tenderness. Medications and IVs Current Medications IV Flush 2 ml 2 ml UNSCH PRN IVF FLUSH AFTER USING IV ACCESS; Start 09/18/16 at 21:30 Sodium Chloride 1,000 ml @ 999 mls/hr BOLUS ONCE IV Last administered on 09/19t 00:02; Start 09/18/16 at 23:15; Stop 09/19/16 at 00:15; Status DC Sodium Chloride (NS 1000 ml Inj) 1,000 ml @ 50 mls/hr Q20H IV Last administered on 09/19/16 00:02; Start 09/18/16 at 23:40 Acetaminophen (Tylenol) 650 mg Q4H PRN PO TEMP > 100.4; Start 09/18/16 at 23:45 Ondansetron HCl (Zofran Inj) 4 mg Q6H PRN IVP NAUSEA OR VOMITING; Start at 23:45 Magnesium Hydroxide (Milk Of Magnjayna Liq) 30 ml Q12H PRN PO CONSTIPATION; Start 09/18/16 at 23:45 Naloxone HCl (Narcan Inj) 0.4 mg UNSCH PRN IV SEE LABEL COMMENTS; Start at 23:45 Amlodipine Besylate (Norvasc) 2.5 mg DAILY PO Last administered on 09/19/16 08 :40; Start 09/19/16 at 09:00 Clopidogrel Bisulfate (Plavix) 75 mg DAILY PO Last administered on 09/19/16 08 :41; Start 09/19/16 at 09:00 Metoprolol Tartrate (Lopressor) 25 mg DAILY PO Last administered on 09/19/16 08:39; Start 09/19/16 at 09:00 Pantoprazole Sodium (Protonix) 40 mg DAILY PO Last administered on 09/19/16 08 :39; Start 09/19/16 at 09:00 Miscellaneous (Pill Splitter) 1 ea UNSCH PRN OTHER SEE LABEL COMMENTS; Start at 01:00 A/P Problem List: (1) Dehydration ICD Code: E86.0 Status: Acute (2) HTN (hypertension) ICD Code: I10 Status: Chronic Assessment and Plan 85-year-old female with a history of CAD status post [place] and stent placement 2006 , PVD, hypertension, AAA presents to the ED with complaints of feeling dizzy and almost passing out. pre-syncope -etiology unknown. may be due to dehydration. -on IVFs. -will get ECHO and needs 24 hr HOLTER. HTN, chronic -continue home medications amlodipine and metoprolol. DVT prophylaxis: SCDs Discharge Planning If negative work up can be d/c to home. Kelin Navarrete MD Sep 19, 2016 12:03
--- NOTE | 2016-09-19 20:02 | EKG ---
Date Performed: 09/18/2016 Time Performed: 19:37:59 PTAGE: 85 years EKG: Sinus rhythm LATERAL ST-T CHANGES ABNORMAL ECG PREVIOUS TRACING : 08/12/2016 03.17 Compared to prior tracing no significant change DOCTOR: Bridgette Regalado Interpretating Date/Time 09/19/2016 20:02:01
[2016-09-20] VITALS (7 sets, daily range): BP systolic 130–174; BP diastolic 60–76; PULSE 72–80; RESP 18–21; TEMP 95.8–97.8; O2SAT 94–98
--- NOTE | 2016-09-20 08:33 | HHI.PR ---
Subjective Remarks Follow up for lightheadedness, dehydration. The patient has no specific medical complaints at this time. She is oriented to self only, says this is her home, says the president is the "rich man". She is able to say her PCP is Dr. Nguyen. Unclear baseline, discussed with RN to talk with family. Objective Vitals Vital Signs Date Time Temp Pulse Resp B/P Pulse Ox O2 Delivery O2 Flow Rate FiO2 09/20/16 00:41 97.8 80 21 145/65 95 09/19/16 21:31 72 09/19/16 20:58 97.8 87 16 148/67 97 09/19/16 16:00 62 09/19/16 15:43 97.8 63 22 151/57 94 09/19/16 14:30 64 19 137/60 66 17 137/62 66 19 115/56 09/19/16 11:00 81 18 155/72 97 Room Air I/O 09/19/16 09/19/16 09/19/16 09/20/16 09/20/16 09/20/16 07:00 15:00 23:00 07:00 15:00 23:00 Intake Total 240 ml Balance 240 ml Intake Oral 240 ml # Bowel Movements 2 Result Diagram: 09/19/16 0352 09/19/16 1047 Imaging Last Impressions Chest X-Ray 09/18/162122 Signed Impressions: Service Date/Time: Sunday, September 18, 2016 21:46 - CONCLUSION: 1. Underlying emphysema and scarring. 2. No acute cardiopulmonary disease. Marcus Sotomayor MD Objective Remarks GENERAL: Well-nourished, well-developed pleasantly confused elderly female patient in [facility]. SKIN: Warm and dry. No rash. HEENT: Normocephalic. Atraumatic. Pupils equal and round. No scleral icterus. No injection or drainage. Mucous membranes pink and moist. NECK: Supple. Trachea midline. CARDIOVASCULAR: Regular rate and rhythm. S1, S2 noted. No murmur appreciated. RESPIRATORY: No accessory muscle use. Clear to auscultation. Breath sounds equal bilaterally. GASTROINTESTINAL: Abdomen soft, non-tender, nondistended. Normoactive bowel sounds x4. MUSCULOSKELETAL: No obvious deformities. Extremities without clubbing, cyanosis , or edema. NEUROLOGICAL: Awake and alert, oriented to self only. No obvious cranial nerve deficits. Motor grossly within normal limits. 5/5 muscle strength in bilateral upper and lower extremities. Normal speech. PSYCHIATRIC: Appropriate mood and affect; insight and judgment limited. Medications and IVs Current Medications Medications (Trade) Dose Ordered Sig/Lisa Route Start Time Stop Time Status Last Admin (NS Flush) 2 ml UNSCH PRN IVF 09/18/16 21:30 (Tylenol) 650 mg Q4H PRN PO 09/18/16 23:45 (Zofran Inj) 4 mg Q6H PRN IVP 09/18/16 23:45 (Milk Of Magnesia Liq) 30 ml Q12H PRN PO 09/18/16 23:45 (Narcan Inj) 0.4 mg UNSCH PRN IV 09/18/16 23:45 (Norvasc) 2.5 mg DAILY PO 09/19/16 09:00 09/20/16 10:01 (Plavix) 75 mg DAILY PO 09/19/16 09:00 09/20/16 10:01 (Lopressor) 25 mg DAILY PO 09/19/16 09:00 09/20/16 10:01 (Protonix) 40 mg DAILY PO 09/19/16 09:00 09/20/16 10:01 (Pill Splitter) 1 ea UNSCH PRN OTHER 09/19/16 01:00 Urinary Catheter: No Vascular Central Line Catheter: No A/P Problem List: (1) Dehydration ICD Code: E86.0 Status: Acute (2) HTN (hypertension) ICD Code: I10 Status: Chronic Assessment and Plan 85-year-old female with a history of CAD status post [place] and stent placement 2006 , PVD, hypertension, AAA presents to the ED with complaints of feeling dizzy and almost passing out. Pre-syncope: while playing bingo. Unclear etiology however suspect related to dehydration. Work up in progress -Initially +orthostatic hypotension, given IVF, now orthostatics negative -checking echocardiogram -Holter ordered, can be done as outpatient, reviewed telemetry, unremarkable here -Consult physical therapy -RN to discuss with family, if patient is at baseline, can likely be discharged if cleared by PT HTN, chronic -continue home medications amlodipine and metoprolol. Confusion. Check urinalysis, RPR, B-12, TSH, head CT and EEG. Neurochecks. Fall precautions. Discussed with RN DVT prophylaxis: SCDs Written by Magda Salgado, acting as scribe for Dr. Perez on 09/20/16 at 08: 33. All or portions of this note were transcribed by scribe []. I, Dr. Casimiro Perez personally performed the history, physical exam, and medical decision making; and confirmed the accuracy of the information in the transcribed note. Authenticated by Dr. Casimiro Perez on 09/20/16 at 13:49. Magda Salgado PA-C Sep 20, 2016 08:33 Casimiro Perez MD Sep 20, 2016 13:49
[2016-09-20] MEDS: amLODIPine BESYLATE 5 MG TAB PO SCH (10:01)
[2016-09-20] MEDS: METOPROLOL TARTRATE 25 MG TAB PO SCH (10:01)
[2016-09-20] MEDS: CLOPIDOGREL 75 MG TAB PO SCH (10:01)
[2016-09-20] MEDS: PANTOPRAZOLE SOD 40 MG DELAYED RELEASE TAB PO SCH (10:01)
--- NOTE | 2016-09-20 12:47 | EC ---
Study Study Date:09/20/2016 STUDY CONCLUSIONS SUMMARY - Left ventricle: The cavity size was normal. Wall thickness was normal. Systolic function was normal. The estimated ejection fraction was in the range of 55% to 60%. Wall motion was normal; there were no regional wall motion abnormalities. - Mitral valve: Mild regurgitation. - Tricuspid valve: Mild regurgitation. - Pulmonary arteries: PA peak pressure: 37mm Hg (S). If LV function is below 40, please consider prescribing an ACEI or ARB or document rationale for non-use. PROCEDURE DATA STUDY STATUS: Elective. Procedure: Transthoracic echocardiography. Image quality was good. Scanning was performed from the parasternal, apical, and subcostal acoustic windows. Study completion: The patient tolerated the procedure well. Transthoracic echocardiography. M-mode, complete 2D, complete spectral Doppler, and color Doppler. Patient status: Inpatient. CARDIAC ANATOMY LEFT VENTRICLE: The cavity size was normal. Wall thickness was normal. Systolic function was normal. The estimated ejection fraction was in the range of 55% to 60%. Wall motion was normal; there were no regional wall motion abnormalities. AORTIC VALVE: Trileaflet; normal thickness leaflets. Doppler: Transvalvular velocity was within the normal range. There was no stenosis. No regurgitation. AORTA: Aortic root: The aortic root was normal in size. MITRAL VALVE: Structurally normal valve. Doppler: Transvalvular velocity was within the normal range. There was no evidence for stenosis. Mild regurgitation. LEFT ATRIUM: The atrium was normal in size. RIGHT VENTRICLE: The cavity size was normal. Wall thickness was normal. PULMONIC VALVE: Doppler: Transvalvular velocity was within the normal range. There was no evidence for stenosis. No regurgitation. TRICUSPID VALVE: Structurally normal valve. Doppler: Transvalvular velocity was within the normal range. Mild regurgitation. PULMONARY ARTERY: The main pulmonary artery was normal-sized. Systolic pressure was within the normal range. RIGHT ATRIUM: The atrium was normal in size. PERICARDIUM: There was no pericardial effusion. SYSTEMIC VEINS: Inferior vena cava: The vessel was normal in size. BASIC MEASUREMENTS ADULT Normal Left ventricle LV internal dimension, ED, chordal level, *40.9 mm 43-52 PLAX LV internal dimension, ES, chordal level, 31 mm 23-38 PLAX Fractional shortening, chordal level, PLAX *24 % >29 LV posterior wall thickness, ED 10.6 mm IVS/LVPW ratio, ED 1.06 <1.3 Ventricular septum Septal thickness, ED 11.2 mm Aortic valve Leaflet separation *13 mm 15-26 Right ventricle RV internal dimension, ED, PLAX *18 mm 19-38 BASIC MEASUREMENTS ADULT Normal Aortic valve Leaflet separation *13 mm 15-26 Aorta Root diameter, ED 35 mm 20-37 Left atrium Anterior-posterior dimension, ES 30 mm 19-40 LA/aortic root ratio 0.86 DOPPLER MEASUREMENTS ADULT Normal Main pulmonary artery Pressure, S *37 mm Hg =30 Tricuspid valve Regurgitant peak velocity 262 cm/s Peak RV-RA gradient, S 27 mm Hg Maximal regurgitant velocity 262 cm/s Systemic veins Estimated CVP 10 mm Hg Right ventricle RV pressure, S *37 mm Hg <30 LEGEND: Mean values are shown as u=mean value. Asterisk (*) joaquin values outside specified normal range. Prepared and signed by Binu Smith [id number]
[2016-09-20] MEDS ORDERED: HALOPERIDOL 1 MG TAB PO ONE (22:00)
[2016-09-21] VITALS (7 sets, daily range): BP systolic 101–132; BP diastolic 51–63; PULSE 64–69; RESP 18–22; TEMP 97.5–99; O2SAT 91–98
[2016-09-21 06:46] LABS: BLOOD, URINE TRACE (NEG); COMMENT (UR) CULT NOT INDICATED; CULTURE IF INDICATED CULT NOT INDICATED; GLUCOSE,URINE NEG (NEG); HYALINE CAST, URINE 4 /lpf (RARE); KETONE, URINE NEG (NEG); NITRITE,URINE NEG (NEG); PH, URINE 5.5 (5.0-8.5); SQUAMOUS EPITHELIAL CELL URINE 1 /hpf (0-5); URINE COLOR YELLOW (YELLW/STRAW)
--- NOTE | 2016-09-21 06:53 | MG ---
cc: CHUY THRASHER MD Lab No: [id number] Date: 09/20/2016 Age: 85 Sex: F Race: __ DATE OF 1930 INDICATIONS An 85-year-old with a history of syncope. The patient was noted be hallucinating during the recording. DESCRIPTION A lot of movement artifact in the beginning. Posterior rhythm demonstrating 4-5 Hz activity with admixed 6-8 Hz activity followed by generalized slowing with delta small spindles. Tiny sharp transients C4, P4, epoch 24. Limited driving with photic stimulation. A couple epochs had tiny sharp transients right frontotemporal region. Single lead EKG showing sinus rhythm. INTERPRETATION Mild encephalopathy in sleep state. Mild nonspecific changes right frontotemporal region. No active seizures. Clinical correlation. Chuy Thrasher MD MG/DJL /6:19 AM /6:50 AM
[2016-09-21 07:25] LABS: BICARBONATE 26.9 MEQ/L (21.0-32.0); POTASSIUM 3.9 MEQ/L (3.5-5.1)
[2016-09-21] MEDS: CLOPIDOGREL 75 MG TAB PO SCH (10:31)
[2016-09-21] MEDS: PANTOPRAZOLE SOD 40 MG DELAYED RELEASE TAB PO SCH (10:31)
[2016-09-21] MEDS: METOPROLOL TARTRATE 25 MG TAB PO SCH (10:31)
[2016-09-21] MEDS: amLODIPine BESYLATE 5 MG TAB PO SCH (10:31)
--- NOTE | 2016-09-21 11:27 | HHI.PR ---
Subjective Remarks Follow up for lightheadedness, dehydration. The patient is awake, alert, oriented to person, knows she is at a hospital in [place], [place], and states the date is September 2016 but does not know the day. She tells me that her PCP is Dr. Nguyen, but she also follows with vascular surgeon Dr. Colon for aneurysms in her brain and in her legs. She states her aneurysms have been stable for years. She also tells me that she lives with her daughter and Dr. Nguyen was working on getting home health care. Discussed with RN and sitter at bedside, no acute events overnight, only ate small portions of her breakfast this morning. The patient states she is not a big breakfast eater. The patient denies any specific medical complaints including no headache, lightheadedness, dizziness, cough, congestion, chest pain, shortness of breath, abdominal or urinary complaints. Objective Vitals Vital Signs Date Time Temp Pulse Resp B/P Pulse Ox O2 Delivery O2 Flow Rate FiO2 09/21/16 11:16 97.9 69 18 120/57 97 09/21/16 08:26 97.5 66 18 117/57 95 09/21/16 00:00 128/63 09/20/16 19:23 72 145/70 98 136/62 130/60 09/20/16 15:36 97.4 75 18 148/76 98 09/20/16 12:27 95.8 74 19 174/75 96 I/O 09/20/16 09/20/16 09/20/16 09/21/16 09/21/16 09/21/16 07:00 15:00 23:00 07:00 15:00 23:00 Intake Total 2 ml Balance 2 ml IV Total 2 ml # Voids 1 1 # Bowel Movements 3 Result Diagram: 09/19/16 0352 09/21/16 0557 Imaging Last Impressions Chest X-Ray 09/18/162122 Signed Impressions: Service Date/Time: Sunday, September 18, 2016 21:46 - CONCLUSION: 1. Underlying emphysema and scarring. 2. No acute cardiopulmonary disease. Marcus Sotomayor MD Objective Remarks GENERAL: Well-nourished, well-developed pleasant elderly female patient in [facility]. More oriented today, to person, place, month/year. SKIN: Warm and dry. No rash. HEENT: Normocephalic. Atraumatic. Pupils equal and round. No scleral icterus. No injection or drainage. Mucous membranes pink and moist. NECK: Supple. Trachea midline. CARDIOVASCULAR: Regular rate and rhythm. S1, S2 noted. No murmur appreciated. RESPIRATORY: No accessory muscle use. Clear to auscultation. Breath sounds equal bilaterally. GASTROINTESTINAL: Abdomen soft, non-tender, nondistended. Normoactive bowel sounds x4. MUSCULOSKELETAL: No obvious deformities. Extremities without clubbing, cyanosis , or edema. NEUROLOGICAL: Awake and alert. No obvious cranial nerve deficits. Motor grossly within normal limits. 5/5 muscle strength in bilateral upper and lower extremities. Normal speech. PSYCHIATRIC: Appropriate mood and affect; insight and judgment fair. Medications and IVs Current Medications Medications (Trade) Dose Ordered Sig/Lisa Route Start Time Stop Time Status Last Admin (NS Flush) 2 ml UNSCH PRN IVF 09/18/16 21:30 (Tylenol) 650 mg Q4H PRN PO 09/18/16 23:45 (Zofran Inj) 4 mg Q6H PRN IVP 09/18/16 23:45 (Milk Of Magnesia Liq) 30 ml Q12H PRN PO 09/18/16 23:45 (Narcan Inj) 0.4 mg UNSCH PRN IV 09/18/16 23:45 (Norvasc) 2.5 mg DAILY PO 09/19/16 09:00 09/21/16 10:31 (Plavix) 75 mg DAILY PO 09/19/16 09:00 09/21/16 10:31 (Lopressor) 25 mg DAILY PO 09/19/16 09:00 09/21/16 10:31 (Protonix) 40 mg DAILY PO 09/19/16 09:00 09/21/16 10:31 (Pill Splitter) 1 ea UNSCH PRN OTHER 09/19/16 01:00 Urinary Catheter: No Vascular Central Line Catheter: No A/P Problem List: (1) Dehydration ICD Code: E86.0 Status: Acute (2) HTN (hypertension) ICD Code: I10 Status: Chronic Assessment and Plan 85-year-old female with a history of CAD status post [place] and stent placement 2006 , PVD, hypertension, AAA presents to the ED with complaints of feeling dizzy and almost passing out. Pre-syncope: while playing bingo. Unclear etiology however suspect related to dehydration. Work up in progress. -Initially +orthostatic hypotension, given IVF, now orthostatics negative -Echocardiogram with normal systolic function, mild MR, mild TR -Holter completed, telemetry reviewed and unremarkable, will discontinue -Consult physical therapy, recommending rehab -Case management consult for rehab placement if patient/family agrees Increasing Confusion: reportedly new per family, patient waxes/wanes, possible sundowner's/Dementia. -UA unremarkable. -RPR negative, B-12 and TSH wnl. -Check head CT. -EEG with mild encephalopathy but not seizures. -Neuro checks. Fall precautions. -ST cognitive eval ordered HTN, chronic -continue home medications amlodipine and metoprolol. DVT prophylaxis: SCDs Discussed with RN, caseworker and Dr. Peterson. Discharge Planning Possible discharge to SNF if Head CT unremarkable. Magda Salgado PA-C Sep 21, 2016 11:27
--- NOTE | 2016-09-21 13:58 | RADRPT ---
EXAM DATE/TIME: 09/21/2016 13:14 CORRECTION Corrected on: September 21, 2016; [facility] COMPARISON: No previous studies available for comparison. INDICATIONS : Altered mental status. RADIATION DOSE: 43.25 CTDIvol (mGy) MEDICAL HISTORY : Cerebrovascular disease. Hypertension. SURGICAL HISTORY : Right temporal aneurysm repair ENCOUNTER: Initial ACUITY: 1 day PAIN SCALE: 0/10 LOCATION: cranial TECHNIQUE: Multiple contiguous axial images were obtained of the head. Using automated exposure control and adj ustment of the mA and/or kV according to patient size, radiation dose was kept as low as reasonably a chievable to obtain optimal diagnostic quality images. FINDINGS: CEREBRUM: The patient is status post right frontotemporal craniotomy. There is an aneurysm clip at the right zendejas prasellar cistern. Metallic densities are seen at the lateral anterior right temporal lobe. There is low density in the right occipital lobe and posterior right temporal lobe likely from prior posterior cerebral territory infarct. There is expansion of the posterior aspect of the right lateral ventricl e in response to this. There is some low-density in the anterior right temporal lobe. Overall, the ve ntricles and cortical sulci are mildly widened. No evidence of midline shift, mass lesion, hemorrhage or acute infarction. No extra-axial fluid collections are seen. POSTERIOR FOSSA: The cerebellum and brainstem are intact. The 4th ventricle is midline. The cerebellopontine angle i s unremarkable. EXTRACRANIAL: The visualized portion of the orbits is intact. SKULL: The patient is status post right frontotemporal craniotomy No evidence of skull fracture. CONCLUSION: 1. No acute abnormality seen. 2. Status post right craniotomy and placement of aneurysm clip. There is encephalomalacia at the righ t occipital and right temporal lobes. 3. Age related atrophy. Wilbur West MD on September 21, 2016 at 13:49 Board Certified Radiologist. This report was verified electronically. Wilbur West MD on September 21, 2016 at 15:34 Board Certified Radiologist. This report was verified electronically.
--- NOTE | 2016-09-21 15:55 | HM ---
Date Performed: 09/19/2016 Time Performed: 19:31:00 HOOKUP DATE: 09/19/16 07:31:00 PM Wed ANALYSIS START TIME: 09/19/2016 7:36:00 PM ANALYSIS END TIME: 09/20/2016 6:49:13 PM PATIENT AGE: 85 PATIENT HEIGHT PATIENT WEIGHT DRUG LIST PATIENT DIAGNOSIS TEST NARRATIVE: The patient's average heart rate was 79 BPM. Heart rates greater than 120 B PM were noted 1% of the time. No episodes of bradycardia were noted. One pause of 2.2 seconds oc curred at 02:05 AM. 390 ventricular ectopics, which represented < 1% of the total beat count, wer e noted. The highest ventricular ectopic frequency occurred from 08:00 AM to 09:00 AM Norma. During t his time 34 VE(s) occurred. Ventricular ectopics were observed as 380 isolated beat(s) and as 5 coup let(s). No runs were noted. 1 supraventricular ectopics, which represented < 1% of the total ginger t count, were noted. The highest supraventricular ectopic frequency occurred from 01:00 AM to 02:00 AM Norma. During this time 1 SVE(s) occurred. In channel 1, a single episode of ST depression (def ined as -1.0 mm or more) occurred at 10:22:11 PM Wed with a maximum depression of -2.2 mm. No episod es of ST depression (defined as -1.0 mm or more) were noted in channel 2. No episodes of ST depressi on (defined as -1.0 mm or more) were noted in channel 3. TEST INTERPRETATION: Conclusions Predominant rhythm was sinus. There were occasional PACs and ra re PVCs. No ventricular runs, pauses, or atrial fibrillation was appreciated. No diary entries were p rovided. Signed by : Lien chand
[2016-09-22] VITALS (7 sets, daily range): BP systolic 120–137; BP diastolic 57–60; PULSE 61–70; RESP 16–20; TEMP 97.1–98.1; O2SAT 91–97
--- NOTE | 2016-09-22 08:20 | HHI.PR ---
Subjective Remarks Follow-up for near-syncope. Sitter at bedside. The patient knows it is September 2016 and November she is in the hospital, but does not know the hospital name. She complains of some neck pain from lying in bed today. She denies any lightheadedness or dizziness with standing, but states her balance is unsteady when she tries to walk. She doesn't recall the last time she got out of bed. She states she lives at home with her son. She states that she doesn't eat much , but does drink ensure and water. No vision changes, numbness, tingling. Objective Vitals Vital Signs Date Time Temp Pulse Resp B/P Pulse Ox O2 Delivery O2 Flow Rate FiO2 09/22/16 07:37 97.1 69 20 137/60 92 09/22/16 03:30 69 132/57 91 09/22/16 01:00 69 09/21/16 23:23 99.0 68 22 132/52 91 09/21/16 19:32 64 22 115/58 98 09/21/16 15:45 98.2 67 18 101/51 95 09/21/16 11:16 97.9 69 18 120/57 97 09/21/16 08:51 65 09/21/16 08:26 97.5 66 18 117/57 95 I/O 09/21/16 09/21/16 09/21/16 09/22/16 09/22/16 09/22/16 07:00 15:00 23:00 07:00 15:00 23:00 # Voids 1 1 Result Diagram: 09/19/16 0352 09/21/16 0557 Imaging Last Impressions Head CT 09/21/16 0000 Signed Impressions: Service Date/Time: Wednesday, September 21, 2016 13:14 - CONCLUSION: 1. No acute abnormality seen. 2. Status post right craniotomy and placement of aneurysm clip. There is encephalomalacia at the right occipital and right temporal lobes. 3. Age related atrophy. Wilbur West MD Chest X-Ray 09/18/162122 Signed Impressions: Service Date/Time: Sunday, September 18, 2016 21:46 - CONCLUSION: 1. Underlying emphysema and scarring. 2. No acute cardiopulmonary disease. Marcus Sotomayor MD Objective Remarks GENERAL: Pleasant elderly female. Well-developed well-nourished. In no acute distress. Oriented 3. SKIN: Warm and dry. No lesions noted. HEENT: Normocephalic. Pupils equal and round. Mucous membranes pink and moist. CARDIOVASCULAR: Regular rate and rhythm. No murmur appreciated. RESPIRATORY: No accessory muscle use. Clear to auscultation. Breath sounds equal bilaterally. GASTROINTESTINAL: Abdomen soft, non-tender, nondistended. Bowel sounds x4. MUSCULOSKELETAL: No obvious deformities. No clubbing or cyanosis. No edema. NEUROLOGICAL: Awake and alert. No focal neurological deficits. Moves upper and lower extremities spontaneously. Normal speech. Strength 5/5. PSYCHIATRIC: Appropriate mood and affect; insight and judgment fair. A/P Problem List: (1) Dehydration ICD Code: E86.0 Status: Acute (2) HTN (hypertension) ICD Code: I10 Status: Chronic Assessment and Plan 85-year-old female with a history of CAD status post [place] and stent placement 2006 , PVD, hypertension, AAA presents to the ED with complaints of feeling dizzy and almost passing out. Pre-syncope: while playing bingo. Unclear etiology however suspect related to dehydration. -Mildly +orthostatic hypotension, given IVF -Echocardiogram with normal systolic function, mild MR, mild TR -Holter completed, essentially unremarkable, DC telemetry -Consult physical therapy, recommending rehab for now, follow-up additional PT recommendations -Case management consult for rehab placement if patient/family agrees Confusion: reportedly new per family, patient waxes/wanes, likely sundowner's from underlying dementia. -No signs of infection -RPR negative, B-12 and TSH wnl. -Head CT with age-related atrophy, per surgical findings from previous craniotomy and aneurysm clip, but no acute abnormalities seen. -EEG with mild encephalopathy but no seizures. -Neuro checks. Fall precautions. -ST cognitive eval showed moderate deficit HTN, chronic -continue home medications amlodipine and metoprolol. CKD: Baseline creatinine appears 1.21.3 on a previous labs. At baseline. Monitor. DVT prophylaxis: SCDs Discharge Planning Might benefit from SNF if can be arranged. Discussed with Dr. Peterson Problem Qualifiers (1) HTN (hypertension): Qualified Code: I10 - Essential hypertension Calvin Benton Sep 22, 2016 08:20
[2016-09-22] MEDS: CLOPIDOGREL 75 MG TAB PO SCH (08:34)
[2016-09-22] MEDS: amLODIPine BESYLATE 5 MG TAB PO SCH (08:34)
[2016-09-22] MEDS: METOPROLOL TARTRATE 25 MG TAB PO SCH (08:34)
[2016-09-22] MEDS: PANTOPRAZOLE SOD 40 MG DELAYED RELEASE TAB PO SCH (08:34)
--- NOTE | 2016-09-22 12:34 | HHI.FF ---
Face to Face Verification Diagnosis: (1) Near syncope (2) Dehydration (3) HTN (hypertension) (4) Renal insufficiency Physical Therapy Order: Evaluate and Treat, Improve ambulation, Strength and gait training Home Health Nursing Order: Medical education Signs/symptoms of disease process Medication education-adverse effect Nursing assessment with vital signs I have seen patient Maru Arrington on 09/22/16. My clinical findings support the need for the requested home health care services because: Ltd mobility - disease progression Deconditioned w/ increased weakness Med compliance is questionable Limited ability to care for self Impaired cognition/judgement High risk of falls I certify that my clinical findings support that this patient is homebound because: Impaired cognitive ability/safety Unsteady gait/balance Unsafe to leave home unassisted Calvin Benton Sep 22, 2016 12:34
--- NOTE | 2016-09-22 12:39 | HHI.DS ---
Discharge Summary Admission Date Sep 18, 2016 at 23:39 Discharge Date: Sep 22, 2016 Admitting Diagnosis Near syncope, dehydration (1) Dehydration ICD Code: E86.0 Diagnosis: Secondary (2) HTN (hypertension) ICD Code: I10 Diagnosis: Secondary (3) Near syncope ICD Code: R55 Diagnosis: Principal (4) Renal insufficiency ICD Code: N28.9 Diagnosis: Secondary Procedures None Brief History - From Admission 85-year-old female with a history of CAD status post [place] and stent placement 2006 , PVD, hypertension, AAA presents to the ED with complaints of feeling dizzy and almost passing out. Patient states she went to stand up today and felt very dizzy, flushed and patches point. She denies any LOC. She also denies any chest pain, short of breath, fever, chills. She states she has been feeling fine up until the episode today. She denies any recent illness, or being around anyone who is sick. She currently lives alone. CBC/BMP: 09/19/16 0352 09/21/16 0557 Significant Findings Laboratory Tests Test 09/21/16 09/21/16 05:57 06:00 Chloride Level 109 MEQ/L (98-107) Blood Urea Nitrogen 32 MG/DL (7-18) Creatinine 1.33 MG/DL (0.50-1.00) Estimat Glomerular Filtration 38 ML/MIN (>89) Rate Urine Occult Blood TRACE (NEG) Urine Leukocyte Esterase SMALL (NEG) Imaging Last Impressions Head CT 09/21/16 0000 Signed Impressions: Service Date/Time: Wednesday, September 21, 2016 13:14 - CONCLUSION: 1. No acute abnormality seen. 2. Status post right craniotomy and placement of aneurysm clip. There is encephalomalacia at the right occipital and right temporal lobes. 3. Age related atrophy. Wilbur West MD Chest X-Ray 09/18/162122 Signed Impressions: Service Date/Time: Sunday, September 18, 2016 21:46 - CONCLUSION: 1. Underlying emphysema and scarring. 2. No acute cardiopulmonary disease. Marcus Sotomayor MD PE at Discharge GENERAL: Pleasant elderly female. Well-developed well-nourished. In no acute distress. Oriented 3. SKIN: Warm and dry. No lesions noted. HEENT: Normocephalic. Pupils equal and round. Mucous membranes pink and moist. CARDIOVASCULAR: Regular rate and rhythm. No murmur appreciated. RESPIRATORY: No accessory muscle use. Clear to auscultation. Breath sounds equal bilaterally. GASTROINTESTINAL: Abdomen soft, non-tender, nondistended. Bowel sounds x4. MUSCULOSKELETAL: No obvious deformities. No clubbing or cyanosis. No edema. NEUROLOGICAL: Awake and alert. No focal neurological deficits. Moves upper and lower extremities spontaneously. Normal speech. Strength 5/5. PSYCHIATRIC: Appropriate mood and affect; insight and judgment fair. Pt update on day of discharge Discussed with RN and case management who communicated with the patient's daughter. Apparently the patient lives with her son and grandson and her daughter is next door and there will always be a family member present with the patient. They are agreeable for C, case management to arrange. Hospital Course 85-year-old female with a history of CAD status post [place] and stent placement 2006 , PVD, hypertension, AAA presents to the ED with complaints of feeling dizzy and almost passing out. Pre-syncope: while playing bingo. Unclear etiology however suspect related to dehydration. -Mildly +orthostatic hypotension, given IVF -Echocardiogram with normal systolic function, mild MR, mild TR -Holter completed, essentially unremarkable -Consulted physical therapy, recommended rehab, unable to place an SNF, case management to arrange for HHC Confusion: reportedly new per family, patient waxes/wanes, likely underlying dementia with sundowner's. -No signs of infection -RPR negative, B-12 and TSH wnl. -Head CT with age-related atrophy, per surgical findings from previous craniotomy and aneurysm clip, but no acute abnormalities seen. -EEG with mild encephalopathy but no seizures. -Neuro checks. Fall precautions. -ST cognitive eval showed moderate deficit HTN, chronic, soft, mild orthostasis -continue home metoprolol. DC amlodipine 2.5 mg daily. CKD: Baseline creatinine appears 1.21.3 on a previous labs. At baseline. Pt Condition on Discharge: Stable Discharge Disposition: Disch w/ Home Health Serv Discharge Time: > 30 minutes Discharge Instructions DIET: Follow Instructions for: Heart Healthy Diet Activities you can perform: Regular-No Restrictions, Weight Bearing as Starla Other Activity Instructions: Ambulate with assistance Follow up Referrals: PCP Follow-up - 1 Week with Calli Nguyen MD Continued Medications: Aspirin (Aspirin) 81 Mg Tabdr 81 MG PO DAILY TAB Clopidogrel (Clopidogrel) 75 Mg Tab 75 MG PO DAILY Blood Clot Prevention #30 Ref 0 TAB Coenzyme Q10 (Ubidecarenone) (Coenzyme Q-10 High Potency) 200 Mg Cap 100 MG PO DAILY Metoprolol Tartrate (Metoprolol Tartrate) 25 Mg Tab 25 MG PO DAILY #30 Ref 0 TAB Pantoprazole (Protonix) 40 Mg Tab 40 MG PO DAILY Reflux #30 Ref 0 TAB Discontinued Medications: Amlodipine (Amlodipine) 2.5 Mg Tab 2.5 MG PO DAILY Blood Pressure Management #30 Ref 0 TAB Furosemide (Lasix) 20 Mg Tab 20 MG PO DAILY #30 Ref 0 TAB Potassium Chloride ER (Potassium Chloride ER) 10 Meq Tab 10 MEQ PO BID Electrolyte Replacement #60 Ref 0 TAB Calvin Benton Sep 22, 2016 12:39
== END 2016-09-22 16:39 | disposition home or self-care (01) ==
LOC: NEPA 20:41 → NEDA 23:39 → NEDH 09-19 05:26 → NEPFCDU 09-19 15:05 → NEPGCP 09-20 15:15
PROVIDERS: ADMIT Hospitalist; ATTEND Hospitalist
DX: R55 Syncope and collapse (principal); E86.0 Dehydration; R53.1 Weakness; N18.9 Chronic kidney disease, unspecified; I12.9 Hypertensive chronic kidney disease with stage 1 through stage 4 chronic kidney disease, or unspecified chronic kidney disease; I73.9 Peripheral vascular disease, unspecified; I71.4 Abdominal aortic aneurysm, without rupture; I67.1 Cerebral aneurysm, nonruptured; I25.10 Atherosclerotic heart disease of native coronary artery without angina pectoris; I25.2 Old myocardial infarction; Z95.5 Presence of coronary angioplasty implant and graft; E78.00 Pure hypercholesterolemia, unspecified; I50.9 Heart failure, unspecified; J44.9 Chronic obstructive pulmonary disease, unspecified; Z86.73 Personal history of transient ischemic attack (TIA), and cerebral infarction without residual deficits; K21.9 Gastro-esophageal reflux disease without esophagitis; M81.0 Age-related osteoporosis without current pathological fracture; Z87.891 Personal history of nicotine dependence; Z79.899 Other long term (current) drug therapy; G93.89 Other specified disorders of brain
CPT/HCPCS: 70450; 71010; 80048; 81001; 82550; 82552; 82607; 83735; 84443; 84484; 85025; 86592; 93005; 93225; 93226; 93306; 95819; 96125; 97110; 97116; 97162; 99285; G0378; G9168; G9169; G9170; J7030

== ENCOUNTER 2016-10-04 14:45 | Inpatient (IN) | payer MEDICARE, BC ==
[~2016-10-04] VITALS: Ht 154.9 cm; Wt 44.7 kg
[2016-10-04] VITALS (8 sets, daily range): BP systolic 99–155; BP diastolic 52–71; PULSE 72–83; RESP 16–20; TEMP 98.2–98.3; O2SAT 90–100
[~2016-10-04 14:45] MED LIST changes: -AMLO2.5T PO; -FURO1TAB62 PO; -POTA10TA2 PO
[2016-10-04] MEDS ORDERED: SODIUM CHLOR 0.9% 1000 ML INJ 1,000 ML IV ONE (15:00)
[2016-10-04 15:25] LABS: BLOOD GAS CARBOXYHEMOGLOBIN 2.3 % (0-4); BLOOD GAS HCO3 20 mmol/L (22-26); BLOOD GAS O2 HGB SATURATION 95 % (90-100); BLOOD GAS OXYGEN CONTENT 10.8 Vol % (12.0-20.0); BLOOD GAS PCO2 31 mmHG (38-42); BLOOD GAS PO2 107 mmHG (61-120); BLOOD GAS TOTAL HGB 7.9 G/DL (12.0-16.0); CRITICAL VALUE NO; DRAW SITE LT RADIAL; LITER FLOW 2 L/M; NUMBER OF ARTERIAL PUNCTURES 1; OXYGEN DEVICE NASAL CANNULA; STAT YES; TEMP CORR TO 98.6; ULNAR PULSE PRESENT
[2016-10-04 15:36] LABS: CHLORIDE 111 MEQ/L (98-107); POTASSIUM 4.4 MEQ/L (3.5-5.1); SODIUM (NA) 144 MEQ/L (136-145)
[2016-10-04 15:39] LABS: ANION GAP 10 MEQ/L (5-15); BICARBONATE 23.1 MEQ/L (21.0-32.0); BLOOD UREA NITROGEN 75 MG/DL (7-18); MAGNESIUM 2.1 MG/DL (1.5-2.5)
[2016-10-04 15:42] LABS: ALT (GPT) 16 U/L (10-53); AST (GOT) 14 U/L (15-37); GLOMERULAR FILTRATION RATE 47 ML/MIN (>89)
--- NOTE | 2016-10-04 15:42 | PD ---
HPI Chief Complaint: Dizziness Time Seen by Provider: 14:52 Travel History International Travel<30 days: No Contact w/Intl Traveler<30days: No Traveled to known affect area: No History of Present Illness HPI 85-year-old female was brought in by EMS for syncope. Patient states that she was lying down and try to get up and started feeling lightheadedness and passed out completely. Patient states that the episode lasted for a short time. EMS was called. Patient was found to have orthostatic blood pressure. Patient was transferred to ED for evaluation. Patient denies any headache. Patient denies any chest pain or shortness of breath. Patient denies abdominal pain. Patient denies any focal weakness or numbness of extremities. Patient denies any nausea vomiting diarrhea. Patient denies any dysuria or frequency. Patient denies any blood in the stool recently. Patient was admitted to the hospital September 18, 2016 and discharged September 22, 2016 with dehydration, hypertension, seen near syncope, renal insufficiency. Patient has history of CAD status post [place] and stent placement 2006, PVD, abdominal aortic aneurysm. Cuco remembered states the patient is not drinking enough fluid home. Patient states that she drinks about one can of Ensure a day and some coffee. Patient states that she does not eat much during daytime. PFSH Past Medical History AAA: Yes Arthritis: Yes Autoimmune Disease: No Blood Disorders: No Anxiety: Yes Depression: No Heart Rhythm Problems: No Cancer: No Cardiac Catheterization: Yes Cardiovascular Problems: Yes (ht of htn, MS) High Cholesterol: Yes Chest Pain: Yes Congestive Heart Failure: Yes COPD: Yes Cerebrovascular Accident: Yes (cva) Coronary Artery Disease: Yes Diabetes: No Diminished Hearing: No Endocrine: No GERD: Yes Genitourinary: No Headaches: No Hepatitis: No Hiatal Hernia: No Heparin Induced Thrombocytopen: No Hypertension: Yes Immune Disorder: No Implanted Vascular Access Dvce: No Kidney Stones: No Medical other: Yes (LEFT TEMPORAL ANEURYSM) Musculoskeletal: Yes (ARTHRITIS) Neurologic: No Psychiatric: No Reproductive: No Respiratory: Yes (copd) Immunizations Current: Yes Migraines: No Myocardial Infarction: Yes Pancreatitis: Yes Renal Failure: No Seizures: No Sleep Apnea: No Thyroid Disease: No Ulcer: No Tetanus Vaccination: > 5 Years Influenza Vaccination: Yes ?: Not Menopausal: Yes : 4 Para: 3 Miscarriage: 1 Past Surgical History Abdominal Surgery: Yes (LAP. [place]) AICD: No Arteriovenous Shunt: No Body Medical Devices: CARDIAC STENT, ANEURYSM CLIP Cardiac Surgery: Yes (CARDIAC STENT 1973) Cholecystectomy: Yes Coronary Artery Bypass Graft: No Coronary Stent: Yes Ear Surgery: No Endocrine Surgery: No Eye Surgery: Yes (RIGHT OPTIC NERVE CLIP) Genitourinary Surgery: No Gynecologic Surgery: No Insulin Pump: No Joint Replacement: No Neurologic Surgery: Yes (R TEMPORAL ANEURYSM REPAIR.) Oral Surgery: No Pacemaker: No Thoracic Surgery: No Other Surgery: Yes (LEFT CAROTID ENDARTARECTOMY) Social History Alcohol Use: No (denies use at this time) Tobacco Use: No (quit in 1973 per patient but documented quit in 2006 , cigs) Substance Use: No Allergies-Medications (Allergen,Severity, Reaction): Coded Allergies: Dilantin (Verified Allergy, Severe, Rash, 10/04/16) Penicillin (Verified Allergy, Severe, Swelling, 10/04/16) Sulfa (Unverified Allergy, Severe, Rash, 10/04/16) MRI PRECAUTION (Verified Adverse Reaction, Severe, ANEURYSM CLIP CX PER S MILES ADB, 10/04/16) Percocet (Verified Adverse Reaction, Severe, Hallucinations, 10/04/16) Valium (Verified Adverse Reaction, Severe, HALLUCINATIONS, 10/04/16) Aspirin (Verified Adverse Reaction, Intermediate, Bleeding, 10/04/16) PT STATES IT IS "FULL STRENGTH ASA",BABY ASA OK. FULL STRENGTH GIVES HER A NOSE BLEED Reported Meds & Prescriptions Reported Meds & Active Scripts Active Protonix (Pantoprazole Sodium) 40 Mg Tab 40 Mg PO DAILY Reported Coenzyme Q-10 High Potency (Coenzyme Q10 (Ubidecarenone)) 200 Mg Cap 100 Mg PO DAILY Metoprolol Tartrate 25 Mg Tab 25 Mg PO DAILY Clopidogrel (Clopidogrel Bisulfate) 75 Mg Tab 75 Mg PO DAILY Aspirin 81 Mg Tabdr 81 Mg PO DAILY Review of Systems General / Constitutional: No: Fever Eyes: No: Visual changes HENT: Positive: Lightheadedness, No: Headaches Cardiovascular: No: Chest Pain or Discomfort Respiratory: No: Shortness of Breath Gastrointestinal: No: Abdominal Pain Genitourinary: No: Dysuria Musculoskeletal: No: Pain Skin: No Rash Neurologic: Positive: Syncope, No: Weakness Psychiatric: No: Depression Endocrine: No: Polydipsia Hematologic/Lymphatic: No: Easy Bruising Physical Exam Narrative GENERAL: Well-nourished, well-developed patient. SKIN: Focused skin assessment warm/dry. HEAD: Normocephalic. EYES: No scleral icterus. No injection or drainage. Pupils 2 mm equal reactive. NECK: Supple, trachea midline. No JVD or lymphadenopathy. CARDIOVASCULAR: Regular rate and rhythm without murmurs, gallops, or rubs. RESPIRATORY: Breath sounds equal bilaterally. No accessory muscle use. GASTROINTESTINAL: Abdomen soft, non-tender, nondistended. Rectal exam Hemoccult positive MUSCULOSKELETAL: No cyanosis, or edema. BACK: Nontender without obvious deformity. No CVA tenderness. Neurologic exam: Patient's awake and alert oriented 3. No obvious focal neurological deficit. Data Data Last Documented VS Vital Signs Date Time Temp Pulse Resp B/P Pulse Ox O2 Delivery O2 Flow Rate FiO2 10/04/16 16:20 76 20 99/53 95 10/04/16 15:04 Nasal Cannula 2 10/04/16 14:55 98.2 Orders Electrocardiogram (10/04/16 14:55) Complete Blood Count With Diff (10/04/16 14:55) Comprehensive Metabolic Panel (10/04/16 14:55) Creatine Kinase (Cpk) (10/04/16 14:55) Troponin I (10/04/16 14:55) B-Type Natriuretic Peptide (10/04/16 14:55) Prothrombin Time / Inr (Pt) (10/04/16 14:55) Act Partial Throm Time (Ptt) (10/04/16 14:55) Arterial Blood Gas (Abg) (10/04/16 14:55) Blood Culture (10/04/16 14:55) Urinalysis - C+S If Indicated (10/04/16 14:55) Magnesium (Mg) (10/04/16 14:55) Thyroid Stimulating Hormone (10/04/16 14:55) Phosphorus (Po4) (10/04/16 14:55) Chest, Single Ap (10/04/16 14:55) Ct Brain W/O Iv Contrast(Rout) (10/04/16 14:55) Iv Access Insert/Monitor (10/04/16 14:55) Ecg Monitoring (10/04/16 14:55) Oxygen Administration (10/04/16 14:55) Oximetry (10/04/16 14:55) Sodium Chlor 0.9% 1000 Ml Inj (Ns 1000 M (10/04/16 15:00) Sodium Chlor 0.9% 1000 Ml Inj (Ns 1000 M (10/04/16 16:15) Labs Laboratory Tests Test 10/04/16 10/04/16 15:05 15:18 White Blood Count 9.7 TH/MM3 Red Blood Count 3.00 MIL/MM3 Hemoglobin 8.3 GM/DL Hematocrit 26.1 % Mean Corpuscular Volume 86.9 FL Mean Corpuscular Hemoglobin 27.7 PG Mean Corpuscular Hemoglobin 31.9 % Concent Red Cell Distribution Width 14.7 % Platelet Count 271 TH/MM3 Mean Platelet Volume 7.9 FL Neutrophils (%) (Auto) 78.2 % Lymphocytes (%) (Auto) 15.0 % Monocytes (%) (Auto) 4.3 % Eosinophils (%) (Auto) 1.9 % Basophils (%) (Auto) 0.6 % Neutrophils # (Auto) 7.6 TH/MM3 Lymphocytes # (Auto) 1.4 TH/MM3 Monocytes # (Auto) 0.4 TH/MM3 Eosinophils # (Auto) 0.2 TH/MM3 Basophils # (Auto) 0.1 TH/MM3 CBC Comment DIFF FINAL Differential Comment Prothrombin Time 11.4 SEC Prothromb Time International 1.0 RATIO Ratio Activated Partial 20.1 SEC Thromboplast Time Sodium Level 144 MEQ/L Potassium Level 4.4 MEQ/L Chloride Level 111 MEQ/L Carbon Dioxide Level 23.1 MEQ/L Anion Gap 10 MEQ/L Blood Urea Nitrogen 75 MG/DL Creatinine 1.10 MG/DL Estimat Glomerular Filtration 47 ML/MIN Rate Random Glucose 118 MG/DL Calcium Level 8.7 MG/DL Phosphorus Level 3.1 MG/DL Magnesium Level 2.1 MG/DL Total Bilirubin 0.7 MG/DL Aspartate Amino Transf 14 U/L (AST/SGOT) Alanine Aminotransferase 16 U/L (ALT/SGPT) Alkaline Phosphatase 92 U/L Total Creatine Kinase 81 U/L Troponin I LESS THAN 0.02 NG/ML B-Type Natriuretic Peptide 357 PG/ML Total Protein 5.9 GM/DL Albumin 2.8 GM/DL Thyroid Stimulating Hormone 0.526 uIU/ML 3rd Gen Blood Gas Puncture Site LT RADIAL Blood Gas Patient Temperature 98.6 Blood Gas HCO3 20 mmol/L Blood Gas Base Excess -3.0 mmol/L Blood Gas Oxygen Saturation 95 % Arterial Blood pH 7.44 Arterial Blood Partial 31 mmHG Pressure CO2 Arterial Blood Partial 107 mmHG Pressure O2 Arterial Blood Oxygen Content 10.8 Vol % Arterial Blood 2.3 % Carboxyhemoglobin Arterial Blood Methemoglobin 1.0 % Blood Gas Hemoglobin 7.9 G/DL Oxygen Delivery Device NASAL CANNULA Blood Gas Liter Flow 2 L/M MDM Medical Decision Making Medical Screen Exam Complete: Yes Emergency Medical Condition: Yes Interpretation(s) Last Impressions Chest X-Ray 10/04/16 2975 Signed Impressions: Service Date/Time: September 15:06 - CONCLUSION: No acute disease. Jose Matos Jr., MD [address] scan of the brain shows no acute pathology. Encephalomalacia 16 11 PM. BUN 75. Creatinine 1.10. Cardiac enzymes normal. BNP 357. ABG pH 7.44. PCO2 31. PO2 107. Patient on 2 L nasal cannula. Differential Diagnosis Differential diagnosis including vasovagal reaction, dehydration, electrolyte abnormality, TIA, CVA, sepsis. Narrative Course 85-year-old female with dizziness and syncope. History of dehydration and near syncopal episode recently. Normal saline solution 1 L IV bolus. Normal saline solution 1 25 cc an hour. 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
[2016-10-04 15:44] LABS: TOTAL BILIRUBIN ADULT 0.7 MG/DL (0.2-1.0)
--- NOTE | 2016-10-04 15:44 | RADHPO ---
EXAM DATE/TIME: 10/04/2016 15:06 [facility] COMPARISON: CHEST SINGLE AP, September 18, 2016, 21:46. INDICATIONS : Short of breath. MEDICAL HISTORY : Myocardial infarction. SURGICAL HISTORY : None. ENCOUNTER: Initial ACUITY: 1 day PAIN SCORE: 3/10 LOCATION: Bilateral chest FINDINGS: A single view of the chest demonstrates the lungs to be symmetrically aerated without evidence of mas s, infiltrate or effusion. The cardiomediastinal contours are unremarkable. Osseous structures are intact. CONCLUSION: No acute disease. Jose Matos Jr., MD on October 04, 2016 at 15:42 Board Certified Radiologist. This report was verified electronically.
[2016-10-04 15:45] LABS: ALKALINE PHOSPHATASE 92 U/L (45-117); CREATINE KINASE 81 U/L (26-192)
[2016-10-04 15:47] LABS: APTT (PATIENT) 20.1 SEC (24.3-30.1); PROTHROMBIN TIME - PATIENT 11.4 SEC (9.8-11.6)
--- NOTE | 2016-10-04 16:06 | RADHPO ---
EXAM DATE/TIME: 10/04/2016 15:38 [place] COMPARISON: CT BRAIN W/O CONTRAST, September 21, 2016, 13:14. INDICATIONS : Dizziness. Altered mental status. RADIATION DOSE: 57.24 CTDIvol (mGy) MEDICAL HISTORY : Cerebrovascular disease. Right temporal aneurysm. SURGICAL HISTORY : Right temporal aneurysm repair. ENCOUNTER: Initial ACUITY: 1 day PAIN SCALE: 0/10 LOCATION: cranial TECHNIQUE: Multiple contiguous axial images were obtained of the head. Using automated exposure control and adj ustment of the mA and/or kV according to patient size, radiation dose was kept as low as reasonably a chievable to obtain optimal diagnostic quality images. FINDINGS: There is no interval change. Again seen is encephalomalacia involving the right superior cerebellar h emisphere as well as the right occipital lobe and right temporoparietal lobe. No acute infarction, he morrhage, or mass. Supratentorial and infratentorial atrophy is noted. Prior right temporal craniotom y. Aneurysm clip seen within the right aspect of the suprasellar cistern. CONCLUSION: 1. No acute intracranial abnormality. 2. Areas of encephalomalacia involving the right cerebellum and cerebrum as detailed above. Jose Matos Jr., MD on October 04, 2016 at 15:57 Board Certified Radiologist. This report was verified electronically.
[2016-10-04] MEDS ORDERED: SODIUM CHLOR 0.9% 1000 ML INJ 1,000 ML IV SCH ×2 (16:15→18:01)
[2016-10-04 16:34] LABS: AUTOMATED NEUTROPHIL # 7.6 TH/MM3 (1.8-7.7); BASOPHIL # 0.1 TH/MM3 (0-0.2); BASOPHIL % 0.6 % (0.0-2.0); EOSINOPHIL # 0.2 TH/MM3 (0-0.4); EOSINOPHIL % 1.9 % (0.0-4.0); HEMATOCRIT 26.1 % (35.0-46.0); HEMO FLAGS DIFF FINAL; LYMPHOCYTE # 1.4 TH/MM3 (1.0-4.8); MEAN CELL VOLUME 86.9 FL (80.0-100.0); MEAN CORPUSCULAR HEMOGLOBIN 27.7 PG (27.0-34.0); MEAN CORPUSCULAR HGB CONC 31.9 % (32.0-36.0); MONO % 4.3 % (0.0-8.0); NEUT % 78.2 % (16.0-70.0); PLATELET COUNT 271 TH/MM3 (150-450); RED CELL DISTRIBUTION WIDTH 14.7 % (11.6-17.2); WHITE BLOOD COUNT 9.7 TH/MM3 (4.0-11.0)
[2016-10-04 17:25] LABS: BLOOD, URINE NEG (NEG); GLUCOSE,URINE NEG (NEG); KETONE, URINE NEG (NEG); NITRITE,URINE NEG (NEG)
[2016-10-04 17:32] LABS: COMMENT (UR) CATH-CULT NOT IND; CULTURE IF INDICATED CATH CULTURE NOT IND; METHOD OF COLLECTION CATH; RBC, URINE 0-3 /hpf (0-3); URINE COLOR YELLOW (YELLW/STRAW); WBC, URINE 0-2 /hpf (0-5)
[2016-10-04] MEDS ORDERED: SODIUM CHLORIDE 0.9% FLUSH 10 ML FLUSH IV FLUSH PRN (18:15)
[2016-10-04] MEDS: SODIUM CHLORIDE 0.9% FLUSH 10 ML FLUSH IV FLUSH SCH (21:00)
[2016-10-04 21:47] LABS: HEMATOCRIT 21.1 % (35.0-46.0)
[2016-10-04 21:48] LABS: REVIEW FLAG FINAL
[2016-10-04] MEDS: PANTOPRAZOLE SODIUM 40 MG VIAL IV SCH (22:45)
[2016-10-04] MEDS ORDERED: BUMETANIDE INJ 1 MG/4 ML VIAL IV PUSH PRN (23:30)
[2016-10-05] VITALS (18 sets, daily range): BP systolic 138–160; BP diastolic 52–84; PULSE 68–88; RESP 16–20; TEMP 96.9–98.8; O2SAT 93–100
[2016-10-05 06:33] LABS: AUTOMATED NEUTROPHIL # 5.4 TH/MM3 (1.8-7.7); BASOPHIL # 0.1 TH/MM3 (0-0.2); BASOPHIL % 0.9 % (0.0-2.0); EOSINOPHIL # 0.6 TH/MM3 (0-0.4); EOSINOPHIL % 7.3 % (0.0-4.0); HEMATOCRIT 23.4 % (35.0-46.0); HEMO FLAGS DIFF FINAL; LYMPH % 19.4 % (9.0-44.0); LYMPHOCYTE # 1.6 TH/MM3 (1.0-4.8); MEAN CELL VOLUME 83.9 FL (80.0-100.0); MEAN CORPUSCULAR HEMOGLOBIN 27.7 PG (27.0-34.0); MONO % 5.7 % (0.0-8.0); NEUT % 66.7 % (16.0-70.0); PLATELET COUNT 193 TH/MM3 (150-450); RED BLOOD COUNT 2.79 MIL/MM3 (4.00-5.30); RED CELL DISTRIBUTION WIDTH 14.8 % (11.6-17.2); WHITE BLOOD COUNT 8.2 TH/MM3 (4.0-11.0)
[2016-10-05 06:55] LABS: ALKALINE PHOSPHATASE 76 U/L (45-117); ALT (GPT) 13 U/L (10-53); ANION GAP 7 MEQ/L (5-15); AST (GOT) 17 U/L (15-37); BICARBONATE 22.6 MEQ/L (21.0-32.0); BLOOD UREA NITROGEN 47 MG/DL (7-18); CHLORIDE 118 MEQ/L (98-107); GLOMERULAR FILTRATION RATE 54 ML/MIN (>89); POTASSIUM 3.6 MEQ/L (3.5-5.1); SODIUM (NA) 148 MEQ/L (136-145); TOTAL BILIRUBIN ADULT 1.1 MG/DL (0.2-1.0)
[2016-10-05] MEDS: SODIUM CHLORIDE 0.9% FLUSH 10 ML FLUSH IV FLUSH SCH ×2 (09:00→20:31)
[2016-10-05 10:32] LABS: REVIEW FLAG FINAL
[2016-10-05] MEDS: PANTOPRAZOLE SODIUM 40 MG VIAL IV SCH ×2 (10:39→20:30)
[2016-10-05] MEDS: METOPROLOL TARTRATE 25 MG TAB PO SCH (10:39)
[2016-10-05 15:20] LABS: HEMATOCRIT 32.8 % (35.0-46.0); REVIEW FLAG FINAL
--- NOTE | 2016-10-05 16:23 | HHI.HP ---
[facility] Service [facility] Primary Care Physician Calli Nguyen MD Admission Diagnosis GI BLEED, ANEMIA, SYNCOPE Diagnoses: (1) Syncope Chief Complaint: Lightheadedness and syncope Travel History International Travel<30 Days: No Contact w/Intl Traveler <30 Da: No Traveled to Known Affected Are: No History of Present Illness Ms. Arrington is a pleasant 85-year-old female with a known history of CAD status post PA and stent placement 2006, PVD, abdominal aortic aneurysm. Patient is a poor historian, therefore information was taken from medical records and nursing staff. Per records, patient presented to the hospital by EMS with syncopal episode associated with prior lightheadedness. Supposedly she had passed out completely, lasting only a short time. At that time the patient was found to have orthostatic blood pressure. When patient questioned about occurrence, she could not remember why she was at the hospital or what had occurred. She is alert and oriented to self and place, with unfamiliarity to the situation. Per medical records, the patient was recently admitted to the hospital earlier this month with dehydration, hypertension, seen near syncope and renal insufficiency to which the patient does not recall. Furthermore, it is noted that the patient was also seen in the ED in early August with complaint of chest pain. A nuclear stress test was performed with an intermediate risk noted. Denies any chest pain, fevers or shortness of breath at this time. Afebrile. Review of Systems ROS Limitations: Poor Historian Cardiovascular: COMPLAINS OF: Syncope Gastrointestinal: COMPLAINS OF: Nausea Psychiatric: COMPLAINS OF: Confusion Past Family Social History Past Medical History Abdominal aortic aneurysm Arthritis Anxiety Hypertension Previous PA with stent placement High cholesterol Congestive heart failure Chronic obstructive pulmonary disease Cerebrovascular accident Coronary artery disease GERD Left temporal aneurysm Past Surgical History Laparoscopic cholecystectomy Cardiac stent placement Aneurysm clips Cholecystectomy Right optic nerve clip Left carotid endarterectomy Reported Medications Reported Meds & Active Scripts Active Protonix (Pantoprazole Sodium) 40 Mg Tab 40 Mg PO DAILY Reported Coenzyme Q-10 High Potency (Coenzyme Q10 (Ubidecarenone)) 200 Mg Cap 100 Mg PO DAILY Metoprolol Tartrate 25 Mg Tab 25 Mg PO DAILY Clopidogrel (Clopidogrel Bisulfate) 75 Mg Tab 75 Mg PO DAILY Aspirin 81 Mg Tabdr 81 Mg PO DAILY Allergies: Coded Allergies: Dilantin (Verified Allergy, Severe, Rash, 10/04/16) Penicillin (Verified Allergy, Severe, Swelling, 10/04/16) Sulfa (Unverified Allergy, Severe, Rash, 10/04/16) MRI PRECAUTION (Verified Adverse Reaction, Severe, ANEURYSM CLIP CX PER S MILES ADB, 10/04/16) Percocet (Verified Adverse Reaction, Severe, Hallucinations, 10/04/16) Valium (Verified Adverse Reaction, Severe, HALLUCINATIONS, 10/04/16) Aspirin (Verified Adverse Reaction, Intermediate, Bleeding, 10/04/16) PT STATES IT IS "FULL STRENGTH ASA",BABY ASA [place]. FULL STRENGTH GIVES HER A NOSE BLEED Family History Family history significant for diabetes. Parents of old age, mother in her late 70s, father in his 90s Social History Patient lives at home with her great grandson. Denies any alcohol or illicit drug use. Patient does not use tobacco and stated she has quit since 1973. Physical Exam Vital Signs Vital Signs Date Time Temp Pulse Resp B/P Pulse Ox O2 Delivery O2 Flow Rate FiO2 10/05/16 12:00 97.0 80 18 148/80 95 10/05/16 08:00 96.9 80 20 153/84 96 10/05/16 07:23 97.6 73 20 156/72 99 Nasal Cannula 2 10/05/16 07:20 73 100 Nasal Cannula 2 10/05/16 06:49 97.6 75 18 151/58 100 Room Air 10/05/16 06:44 97.7 72 18 139/69 100 Nasal Cannula 1.5 10/05/16 06:39 97.8 69 18 141/64 100 Nasal Cannula 1.5 10/05/16 06:30 97.8 68 18 145/64 100 Nasal Cannula 1.5 10/05/16 06:00 97.8 75 18 145/54 100 Room Air 10/05/16 04:30 98.5 81 16 147/58 100 Nasal Cannula 1.5 10/05/16 04:00 98.5 83 18 140/52 100 Nasal Cannula 1.5 10/05/16 03:55 97.5 83 18 140/55 Nasal Cannula 2 10/05/16 03:50 97.9 86 18 160/61 100 Nasal Cannula 1.5 10/05/16 03:45 98.5 86 18 150/58 100 Nasal Cannula 1.5 10/05/16 02:30 74 18 138/61 100 Nasal Cannula 1.5 10/04/16 23:20 98.3 72 20 132/54 100 Room Air 1.5 10/04/16 20:35 75 20 148/68 98 10/04/16 19:29 78 20 155/71 98 10/04/16 18:35 76 20 123/57 97 10/04/16 17:19 73 20 144/52 100 Nasal Cannula 2 10/04/16 16:20 76 20 99/53 95 Physical Exam GENERAL: This is an elderly female, sitting comfortably in recliner chair, in no apparent distress. SKIN: No rashes, ecchymoses or lesions. Cool and dry. HEAD: Atraumatic. Normocephalic. No temporal or scalp tenderness. EYES: Pupils equal round and reactive. Extraocular motions intact. No scleral icterus. No injection or drainage. ENT: Nose without bleeding, purulent drainage or septal hematoma. Throat without erythema, tonsillar hypertrophy or exudate. Uvula midline. Airway patent. NECK: Trachea midline. No JVD or lymphadenopathy. Supple, nontender, no meningeal signs. CARDIOVASCULAR: Regular rate and rhythm without murmurs, gallops, or rubs. RESPIRATORY: Clear to auscultation. Breath sounds equal bilaterally. No wheezes , rales, or rhonchi. GASTROINTESTINAL: Abdomen soft, non-tender, nondistended. No hepato-splenomegaly , or palpable masses. No guarding. MUSCULOSKELETAL: Extremities without clubbing, cyanosis, or edema. No joint tenderness, effusion, or edema noted. No calf tenderness. Negative Homans sign bilaterally. NEUROLOGICAL: Awake and alert. Cranial nerves II through XII intact. Motor and sensory grossly within normal limits. Five out of 5 muscle strength in all muscle groups. Normal speech. Laboratory Laboratory Tests Test 10/04/16 10/04/16 10/04/16 10/05/16 17:00 17:48 21:40 02:29 Urine Collection Type CATH Urine Color YELLOW Urine Turbidity CLEAR Urine pH 6.0 Urine Specific [place] 1.005 Urine Protein NEG Urine Glucose (UA) NEG Urine Ketones NEG Urine Occult Blood NEG Urine Nitrite NEG Urine Bilirubin NEG Urine Leukocyte Esterase NEG Urine RBC 0-3 Urine WBC 0-2 Microscopic Urinalysis Comment CATH-CULT NOT IND Urine Collection Time 17:00 Blood Type O POSITIVE O POSITIVE Antibody Screen NEGATIVE Hemoglobin 7.0 Hematocrit 21.1 Crossmatch Leukocyte-Reduced Red Blood Cells Blood Bank Comment Test 10/05/16 10/05/16 10/05/16 06:28 10:15 14:44 White Blood Count 8.2 Red Blood Count 2.79 Hemoglobin 7.7 9.9 10.8 Hematocrit 23.4 30.0 32.8 Mean Corpuscular Volume 83.9 Mean Corpuscular Hemoglobin 27.7 Mean Corpuscular Hemoglobin 33.0 Concent Red Cell Distribution Width 14.8 Platelet Count 193 Mean Platelet Volume 7.4 Neutrophils (%) (Auto) 66.7 Lymphocytes (%) (Auto) 19.4 Monocytes (%) (Auto) 5.7 Eosinophils (%) (Auto) 7.3 Basophils (%) (Auto) 0.9 Neutrophils # (Auto) 5.4 Lymphocytes # (Auto) 1.6 Monocytes # (Auto) 0.5 Eosinophils # (Auto) 0.6 Basophils # (Auto) 0.1 CBC Comment DIFF FINAL Differential Comment Sodium Level 148 Potassium Level 3.6 Chloride Level 118 Carbon Dioxide Level 22.6 Anion Gap 7 Blood Urea Nitrogen 47 Creatinine 0.97 Estimat Glomerular Filtration 54 Rate Random Glucose 89 Calcium Level 8.2 Total Bilirubin 1.1 Aspartate Amino Transf 17 (AST/SGOT) Alanine Aminotransferase 13 (ALT/SGPT) Alkaline Phosphatase 76 Total Protein 5.2 Albumin 2.6 Date/Time Procedure Status Source Growth 10/04/16 15:10 Aerobic Blood Culture - Preliminary Resulted Blood Peripheral NO GROWTH IN 1 DAY 10/04/16 15:10 Anaerobic Blood Culture - Preliminary Resulted Blood Peripheral NO GROWTH IN 1 DAY Result Diagram: 10/05/16 1444 10/05/1628 Imaging Last Impressions Head CT 10/04/16 1455 Signed Impressions: Service Date/Time: September 15:38 - CONCLUSION: 1. No acute intracranial abnormality. 2. Areas of encephalomalacia involving the right cerebellum and cerebrum as detailed above. Jose Matos Jr., MD Chest X-Ray 10/04/16 1455 Signed Impressions: Service Date/Time: September 15:06 - CONCLUSION: No acute disease. Jose Matos Jr., MD Assessment and Plan Problem List: (1) Syncope ICD Code: R55 Status: Acute (2) Dehydration ICD Code: E86.0 Status: Acute (3) GI bleed ICD Code: K92.2 Status: Acute Assessment and Plan Syncopal episode - CT brain resulted: No acute intracranial abnormality. Areas of encephalomalacia involving the right cerebellum and cerebrum. - Blood culture and UA negative. - WBC WNL. - CXR negative. - ECHO reviewed from 09/20/16: EF 55-60%. - PT evaluated and treated, reviewed summary. Anemia due to GI bleeding with dehydration - Presented with hemoglobin of 8.3, lowest noted was 7.0. Two unit PRBC ordered and given, with Lasix in between. Repeat hemoglobin increased to 10.8. Notify MD if hemoglobin <8. - Given 1L NS bolus in ED -The patient declines any procedures - Continue on clear liquid diet -No further bleeding today and fax no bowel movement. Repeat CBC tomorrow -Patient advised to stop aspirin. Hypertension - Continue metoprolol. - Monitor orthostatic blood pressures. DVT Prophylaxis - Sequential compression devices and TEDS. GI Prophylaxis - Protonix daily. Written by Lorenzo Campoverde PA-C, acting as scribe for Dr. Doran on 10/05/16 at 1550. The documentation accurately reflects the work and decisions performed face-to- face by Dr. Doran on 10/05/16 at 1550. All or portions of this note were transcribed by scribe Lorenzo Campoverde. I, Dr. Margarita Doran personally performed the history, physical exam, and medical decision making; and confirmed the accuracy of the information in the transcribed note. Physician Certification 2 Midnight Certification Type: Admission for Inpatient Services Order for Inpatient Services The services are ordered in accordance with Medicare regulations or non- Medicare payer requirements, as applicable. In the case of services not specified as inpatient-only, they are appropriately provided as inpatient services in accordance with the 2-midnight benchmark. Estimated LOS (days): 3 days is the estimated time the patient will need to remain in the hospital, assuming treatment plan goals are met and no additional complications. Post-Hospital Plan: Home Health Problem Qualifiers (1) GI bleed: Qualified Code: K92.2 - Gastrointestinal hemorrhage, unspecified gastrointestinal hemorrhage type Lorenzo Campoverde Oct 05, 2016 16:23 Margarita Doran MD Oct 05, 2016 18:07
--- NOTE | 2016-10-05 16:39 | EKG ---
Date Performed: 10/04/2016 Time Performed: 15:23:40 PTAGE: 85 years EKG: Possible ectopic atrial rhythm. Anterolateral ST-T changes may be due to myocardial ischemi a Compared to prior tracing no significant change Abnormal ECG NO PREVIOUS TRACING DOCTOR: Jonnathan Terry Interpretating Date/Time 10/05/2016 16:37:05
[2016-10-06] VITALS: BP 138/79; PULSE 96; RESP 18; TEMP 98.6; O2SAT 94
[2016-10-06 04:00] VITALS: BP 140/77; PULSE 93; PULSE 99; RESP 20; TEMP 98.3; O2SAT 90
[2016-10-06 07:26] LABS: AUTOMATED NEUTROPHIL # 9.9 TH/MM3 (1.8-7.7); BASOPHIL # 0.2 TH/MM3 (0-0.2); BASOPHIL % 1.7 % (0.0-2.0); EOSINOPHIL % 0.4 % (0.0-4.0); HEMATOCRIT 33.2 % (35.0-46.0); HEMO FLAGS DIFF FINAL; LYMPH % 9.6 % (9.0-44.0); LYMPHOCYTE # 1.1 TH/MM3 (1.0-4.8); MEAN CELL VOLUME 83.6 FL (80.0-100.0); MEAN CORPUSCULAR HEMOGLOBIN 27.5 PG (27.0-34.0); NEUT % 83.3 % (16.0-70.0); PLATELET COUNT 220 TH/MM3 (150-450); RED BLOOD COUNT 3.97 MIL/MM3 (4.00-5.30); RED CELL DISTRIBUTION WIDTH 15.3 % (11.6-17.2); WHITE BLOOD COUNT 11.8 TH/MM3 (4.0-11.0)
[2016-10-06 07:30] VITALS: O2SAT 96
[2016-10-06 08:00] VITALS: BP 136/90; PULSE 87; RESP 17; TEMP 97.7; O2SAT 99
--- NOTE | 2016-10-06 08:27 | MB ---
cc: GRETCHEN SANCHEZ DATE OF CONSULTATION: 10/05/2016 DATE OF : 1930 REASON FOR REFERRAL Anemia. Thank you for the consultation. HISTORY OF PRESENT ILLNESS: The patient is an 85-year-old lady with multiple medical problems who came because of shortness of breath and lightheadedness. The patient was complaining of fatigue. She was found to have low blood pressure with orthostasis and when she was brought to the hospital, she was severely anemic. The patient was given blood in the ER. She feels much better now. She denied chest pain, no shortness of breath. REVIEW OF SYSTEMS Limited because of the patient's inability to give good history but overall no complaint at this time. All 12 point negative. She had syncope and nausea when she was admitted. PAST SURGICAL HISTORY: 1. Cholecystectomy. 2. Cardiac stent placement. 3. Aneurysm clip. 4. Right optic nerve clip. 5. Left carotid endarterectomy. PAST MEDICAL HISTORY: Significant for: 1. High cholesterol. 2. Hypertension. 3. Anxiety. 4. Arthritis. 5. Coronary artery disease. 6. Aortic aneurysm in the abdomen. 7. Reflux symptoms. 8. CVA. 9. Left temporal aneurysm. MEDICATIONS: Reviewed in the chart. ALLERGIES Multiple including: PENICILLIN, SULFA, DILANTIN VALIUM, ASPIRIN. SOCIAL HISTORY She denied any tobacco or alcohol. FAMILY HISTORY Significant for diabetes. PHYSICAL EXAMINATION Alert, oriented, no acute distress at this time. Vital signs: Stable. HEENT: Pupils are round and reactive to light. Neck: Supple. Chest: Clear to auscultation and percussion. Cardiac: Regular rate and rhythm. Abdomen: Soft, nondistended. Positive bowel sounds. Extremities: No edema, clubbing or cyanosis. Neurologically: Alert, oriented, grossly normal. LABORATORY DATA: White count 8.2, hemoglobin 7.7, platelets 193, INR 1.0. Chemistry: albumin 2.6, BUN 47, creatinine 0.97. ASSESSMENT/PLAN An 85-year-old lady who has known coronary artery disease. The patient came with shortness of breath and found to be severely anemic, most likely possible GI bleed. I discussed with the patient the need for endoscopy and colonoscopy. She is absolutely against having any procedure. She said she is 85, she does not have so much time to live and she does not want to have any procedure. I agree with giving her transfusion with packed red blood cells and then PPI to prevent bleeding peptic ulcer disease if possible. Other than that, since the patient is refusing any procedure, there is no other recommendation, we will recommend supportive care and we will follow up as needed. MD FILEMON Ruth/RAMON /9:01 PM /8:18 AM
--- NOTE | 2016-10-06 10:19 | HHI.FF ---
Face to Face Verification Diagnosis: (1) GI bleed (2) Syncope (3) Anemia Physical Therapy Order: Evaluate and Treat Home Health Nursing Order: Nursing assessment with vital signs I have seen patient Maru Arrington on 10/06/16. My clinical findings support the need for the requested home health care services because: Deconditioned w/ increased weakness Med compliance is questionable Impaired cognition/judgement High risk of falls I certify that my clinical findings support that this patient is homebound because: Unsteady gait/balance Need for psychosocial assistance Margarita Doran MD Oct 06, 2016 10:19
[2016-10-06] MEDS: METOPROLOL TARTRATE 25 MG TAB PO SCH (10:20)
[2016-10-06] MEDS: PANTOPRAZOLE SODIUM 40 MG VIAL IV SCH (10:21)
[2016-10-06] MEDS: SODIUM CHLORIDE 0.9% FLUSH 10 ML FLUSH IV FLUSH SCH (10:22)
--- NOTE | 2016-10-06 10:45 | HHI.PR ---
Subjective Remarks Patient seen and examined by myself and Dr. Doran. Patient sitting up in recliner chair by nurses station. Alert and oriented to self and place, with confusion as to situation. Wants to go home with daughter and grandson. Denies any pain, shortness of breath or new complaints. Afebrile. Objective Vitals Vital Signs Date Time Temp Pulse Resp B/P Pulse Ox O2 Delivery O2 Flow Rate FiO2 10/06/16 08:00 97.7 87 17 136/90 99 10/06/16 07:30 96 21 10/06/16 04:00 98.3 93 20 140/77 90 10/06/16 04:00 99 10/06/16 00:00 98.6 96 18 138/79 94 10/05/16 20:42 98.8 88 16 143/75 95 10/05/16 19:41 93 21 10/05/16 16:46 98 21 10/05/16 16:00 98.1 80 18 138/80 95 10/05/16 12:00 97.0 80 18 148/80 95 I/O 10/05/16 10/05/16 10/05/16 10/06/16 10/06/16 10/06/16 07:00 15:00 23:00 07:00 15:00 23:00 Intake Total 250 ml 0 ml Output Total 400 ml 150 ml Balance -150 ml -150 ml Intake Oral 0 ml Packed Cells 250 ml Output Urine Total 400 ml 150 ml # Voids 3 1 4 1 Result Diagram: 10/06/16 0720 10/05/16 0628 Imaging Last Impressions Head CT 10/04/16 0245 Signed Impressions: Service Date/Time: September 15:38 - CONCLUSION: 1. No acute intracranial abnormality. 2. Areas of encephalomalacia involving the right cerebellum and cerebrum as detailed above. Jose Matos Jr., MD Chest X-Ray 10/04/16 3455 Signed Impressions: Service Date/Time: September 15:06 - CONCLUSION: No acute disease. Jose Matos Jr., MD Objective Remarks GENERAL: This is an elderly female, sitting comfortably in recliner chair, in no apparent distress. SKIN: No rashes, ecchymoses or lesions. Cool and dry. HEAD: Atraumatic. Normocephalic. No temporal or scalp tenderness. EYES: Pupils equal round and reactive. Extraocular motions intact. No scleral icterus. No injection or drainage. ENT: Nose without bleeding, purulent drainage or septal hematoma. Throat without erythema, tonsillar hypertrophy or exudate. Uvula midline. Airway patent. NECK: Trachea midline. No JVD or lymphadenopathy. Supple, nontender, no meningeal signs. CARDIOVASCULAR: Regular rate and rhythm without murmurs, gallops, or rubs. RESPIRATORY: Clear to auscultation. Breath sounds equal bilaterally. No wheezes , rales, or rhonchi. GASTROINTESTINAL: Abdomen soft, non-tender, nondistended. No hepato-splenomegaly , or palpable masses. No guarding. MUSCULOSKELETAL: Extremities without clubbing, cyanosis, or edema. No joint tenderness, effusion, or edema noted. No calf tenderness. Negative Homans sign bilaterally. NEUROLOGICAL: Awake and alert. Cranial nerves II through XII intact. Motor and sensory grossly within normal limits. Five out of 5 muscle strength in all muscle groups. Normal speech. Urinary Catheter: No Vascular Central Line Catheter: No A/P Assessment and Plan Syncopal episode - CT brain resulted: No acute intracranial abnormality. Areas of encephalomalacia involving the right cerebellum and cerebrum. - Blood culture and UA negative. - WBC WNL. - CXR negative. - ECHO reviewed from 09/20/16: EF 55-60%. - PT evaluated and treated, reviewed summary. Anemia due to GI bleeding with dehydration - Presented with hemoglobin of 8.3, lowest noted was 7.0. Two unit PRBC ordered and given, with Lasix in between. Repeat hemoglobin increased to 10.8. - The patient declines any procedures. - Tolerating PO well. - Patient advised to stop aspirin. Hypertension - Continue metoprolol. - BP's stable. Written by Lorenzo Campoverde PA-C, acting as scribe for Dr. Doran on 10/06/16 at 1030. The documentation accurately reflects the work and decisions performed face-to- face by Dr. Doran on 10/06/16 at 1030. All or portions of this note were transcribed by scribe Lorenzo Campoverde. I, Dr. Margarita Doran personally performed the history, physical exam, and medical decision making; and confirmed the accuracy of the information in the transcribed note. Discharge Planning Patient will be going home today with HHC. Dr. Doran spoke to daughter, healthcare proxy, at length about patient's hospital treatments and refusal of any additional procedures or services. Furthermore, also questioned about additional services needed for when the patient returns home, offering HHC. Hemoglobin returned to baseline, vitals stable, afebrile. Lorenzo Campoverde Oct 06, 2016 10:45 Margarita Doran MD Oct 06, 2016 18:27
[2016-10-06 12:00] VITALS: BP 132/88; PULSE 82; RESP 19; TEMP 97.8; O2SAT 98
== END 2016-10-06 13:53 | disposition home health service (06) | DRG 379 ==
LOC: PHED 14:45 → PHEDA 18:02 → PHEDH 22:02 → PH3A 10-05 08:09
PROVIDERS: ADMIT Family Medicine; ATTEND Family Medicine
PROC: 30253N1 (ICD-10-PCS; principal; 2016-10-04)
DX: K92.2 Gastrointestinal hemorrhage, unspecified (principal); I11.0 Hypertensive heart disease with heart failure; I50.9 Heart failure, unspecified; G93.89 Other specified disorders of brain; E86.0 Dehydration; D50.0 Iron deficiency anemia secondary to blood loss (chronic); E78.00 Pure hypercholesterolemia, unspecified; I25.10 Atherosclerotic heart disease of native coronary artery without angina pectoris; I25.2 Old myocardial infarction; I73.9 Peripheral vascular disease, unspecified; J44.9 Chronic obstructive pulmonary disease, unspecified; K21.9 Gastro-esophageal reflux disease without esophagitis; N28.9 Disorder of kidney and ureter, unspecified; Z86.73 Personal history of transient ischemic attack (TIA), and cerebral infarction without residual deficits; Z95.5 Presence of coronary angioplasty implant and graft
CPT/HCPCS: 36430; 36600; 70450; 71010; 80053; 81001; 82550; 82805; 83735; 83880; 84100; 84443; 84484; 85014; 85018; 85025; 85610; 85730; 86850; 86900; 86901; 86920; 87040; 93005; 94150; 96360; 96361; C9113; J7030; P9016

== ENCOUNTER 2017-03-28 02:06 | Emergency (ER) | payer MEDICARE, BC ==
[~2017-03-28] VITALS: Ht 157.5 cm; Wt 38.0 kg
[~2017-03-28 02:06] MED LIST changes: -ASPI1TAB69 PO; -CLOP75TA PO
[2017-03-28 02:17] VITALS: BP 192/78; PULSE 79; RESP 18; TEMP 97.9; O2SAT 96
[2017-03-28] MEDS ORDERED: POTA-243 PO (02:41)
[2017-03-28] MEDS ORDERED: MIRT1TAB PO (02:42)
[2017-03-28] MEDS ORDERED: SYMB160A INH (02:43)
[2017-03-28] MEDS ORDERED: NITR1SUB3 SL (02:43)
[2017-03-28] MEDS ORDERED: LACTCAP8 PO (02:44)
[2017-03-28] MEDS ORDERED: FERR325C PO (02:44)
[2017-03-28] MEDS ORDERED: LOPE1LIQ13 PO (02:46)
[2017-03-28] MEDS ORDERED: COQ-50CA2 PO (02:51)
--- NOTE | 2017-03-28 02:56 | PD ---
HPI Chief Complaint: Altered Mental Status Time Seen by Provider: 02:48 Travel History International Travel<30 days: No Contact w/Intl Traveler<30days: No Traveled to known affect area: No History of Present Illness HPI The patient is an 86-year-old female that is had progressive metal loss, possibly dementia, for the last 5 months. The daughter does not want to send the patient to a residential but tonight the patient demanded to go to the emergency room and so the daughter took her ear. There is no acute physical problem that she needed to address. There is not been any head trauma, chest pain, shortness of breath, abdominal pain, nausea, vomiting, focal neurologic change or any other physical problems tonight. The patient wants to go home now. PFSH Past Medical History AAA: Yes Arthritis: Yes Autoimmune Disease: No Blood Disorders: No Anxiety: Yes Depression: No Heart Rhythm Problems: No Cancer: No Cardiac Catheterization: Yes Cardiovascular Problems: Yes High Cholesterol: Yes Chest Pain: Yes Congestive Heart Failure: Yes COPD: Yes Cerebrovascular Accident: Yes Coronary Artery Disease: Yes Diabetes: No Diminished Hearing: No Endocrine: No GERD: Yes Genitourinary: No Headaches: No Hepatitis: No Hiatal Hernia: No Heparin Induced Thrombocytopen: No Hypertension: Yes Immune Disorder: No Implanted Vascular Access Dvce: No Kidney Stones: No Medical other: Yes (LEFT TEMPORAL ANEURYSM) Musculoskeletal: Yes (ARTHRITIS) Neurologic: No Psychiatric: No Reproductive: No Respiratory: Yes (copd) Immunizations Current: Yes Migraines: No Myocardial Infarction: Yes Pancreatitis: Yes Renal Failure: No Seizures: No Sleep Apnea: No Thyroid Disease: No Ulcer: No Tetanus Vaccination: > 5 Years Influenza Vaccination: Yes ?: Not Menopausal: Yes : 4 Para: 3 Miscarriage: 1 Past Surgical History Abdominal Surgery: Yes AICD: No Arteriovenous Shunt: No Body Medical Devices: CARDIAC STENT, ANEURYSM CLIP Cardiac Surgery: Yes (CARDIAC STENT 1973) Cholecystectomy: Yes Coronary Artery Bypass Graft: No Coronary Stent: Yes Ear Surgery: No Endocrine Surgery: No Eye Surgery: Yes (RIGHT OPTIC NERVE CLIP) Genitourinary Surgery: No Gynecologic Surgery: No Insulin Pump: No Joint Replacement: No Neurologic Surgery: Yes (R TEMPORAL ANEURYSM REPAIR.) Oral Surgery: No Pacemaker: No Thoracic Surgery: No Other Surgery: Yes (LEFT CAROTID ENDARTARECTOMY, femoral vascular bypass surgery) Social History Alcohol Use: No Tobacco Use: No Substance Use: No Allergies-Medications (Allergen,Severity, Reaction): Coded Allergies: Sulfa (Sulfonamide Antibiotics) (Unverified Allergy, Severe, Rash, 03/28/17 ) penicillin G (Unverified Allergy, Severe, Swelling, 03/28/17) phenytoin (Unverified Allergy, Severe, Rash, 03/28/17) MRI PRECAUTION (Verified Adverse Reaction, Severe, ANEURYSM CLIP CX PER S MILES ADB, 03/28/17) acetaminophen (Unverified Adverse Reaction, Severe, Hallucinations, ) diazepam (Unverified Adverse Reaction, Severe, HALLUCINATIONS, 03/28/17) oxycodone (Unverified Adverse Reaction, Severe, Hallucinations, 03/28/17) aspirin (Unverified Adverse Reaction, Intermediate, Bleeding, 03/28/17) PT STATES IT IS "FULL STRENGTH ASA",BABY ASA OK. FULL STRENGTH GIVES HER A NOSE BLEED Reported Meds & Prescriptions Reported Meds & Active Scripts Active Reported Coq-10 (Coenzyme Q10 (Ubidecarenone)) 50 Mg Cap 100 Mg PO DAILY Imodium A-D (Loperamide HCl) 1 Mg/7.5 Ml Liquid 1 Mg PO DAILY Iron (Ferrous Sulfate) 325 Mg Cap 325 Mg PO DAILY Probiotic (Lactobacillus Acidophilus) 10 Billion Cell Cap 1 Cap PO DAILYAC Nitroglycerin SL (Nitroglycerin) 0.4 Mg Subl 0.4 Mg SL DIRECTED PRN ONE TABLET UNDER THE TONGUE NEEDED FOR CHEST PAIN, MAY REPEAT EVERY FIVE MINUTES FOR A TOTAL OF 3 DOSES OR CALL 911 IF NO RELIEF Symbicort Inh (Budesonide/Formoterol Fumarate) 160-4.5 Mcg/Act Aero 2 Puff INH Q12HR Mirtazapine 7.5 Mg Tab 7.5 Mg PO HS Klor-Con 10 (Potassium Chloride) 10 Meq Tab 10 Meq PO BID Metoprolol Tartrate 25 Mg Tab 12.5 Mg PO BID Review of Systems Except as stated in HPI: all other systems reviewed are Neg Physical Exam Narrative GENERAL: The patient is alert and states she is at the hospital but refuses to tell us which hospital it is. She does state that she is in [place] now. She states the year is 1973. SKIN: Focused skin assessment warm/dry. HEAD: Atraumatic. Normocephalic. Neither raccoon eyes nor bergeron sign is present. EYES: Pupils equal and round. No scleral icterus. No injection or drainage. ENT: No nasal bleeding or discharge. Mucous membranes pink and moist. NECK: Trachea midline. No JVD. CARDIOVASCULAR: Regular rate and rhythm. No murmur appreciated. RESPIRATORY: No accessory muscle use. Clear to auscultation. Breath sounds equal bilaterally. GASTROINTESTINAL: Abdomen soft, non-tender, nondistended. Hepatic and splenic margins not palpable. MUSCULOSKELETAL: No obvious deformities. No clubbing. No cyanosis. No edema. NEUROLOGICAL: Awake and alert. No obvious cranial nerve deficits. Motor grossly within normal limits. Normal speech. Gait is normal. PSYCHIATRIC: The patient appears to have dementia and her judgment is poor. Data Data Last Documented VS Vital Signs Date Time Temp Pulse Resp B/P (MAP) Pulse Ox O2 Delivery O2 Flow Rate FiO2 03/28/17 03:21 97 Room Air 03/28/17 02:17 97.9 79 18 Orders Orders Complete Blood Count With Diff (03/28/17 02:48) Comprehensive Metabolic Panel (03/28/17 02:48) Troponin I (03/28/17 02:48) Urinalysis - C+S If Indicated (03/28/17 02:48) Blood Glucose (03/28/17 02:48) Ecg Monitoring (03/28/17 02:48) Iv Access Insert/Monitor (03/28/17 02:48) Oximetry (03/28/17 02:48) Sodium Chloride 0.9% Flush (Ns Flush) (03/28/17 03:00) Labs Laboratory Tests Test 03/28/17 03:10 03/28/17 03:30 White Blood Count 6.5 TH/MM3 Red Blood Count 4.26 MIL/MM3 Hemoglobin 11.2 GM/DL Hematocrit 34.8 % Mean Corpuscular Volume 81.7 FL Mean Corpuscular Hemoglobin 26.4 PG Mean Corpuscular Hemoglobin Concent 32.3 % Red Cell Distribution Width 17.9 % Platelet Count 250 TH/MM3 Mean Platelet Volume 7.5 FL Neutrophils (%) (Auto) 63.0 % Lymphocytes (%) (Auto) 27.2 % Monocytes (%) (Auto) 6.3 % Eosinophils (%) (Auto) 1.8 % Basophils (%) (Auto) 1.7 % Neutrophils # (Auto) 4.1 TH/MM3 Lymphocytes # (Auto) 1.8 TH/MM3 Monocytes # (Auto) 0.4 TH/MM3 Eosinophils # (Auto) 0.1 TH/MM3 Basophils # (Auto) 0.1 TH/MM3 CBC Comment DIFF FINAL Differential Comment Blood Urea Nitrogen 17 MG/DL Creatinine 1.10 MG/DL Random Glucose 100 MG/DL Total Protein 7.4 GM/DL Albumin 3.2 GM/DL Calcium Level 9.1 MG/DL Alkaline Phosphatase 97 U/L Aspartate Amino Transf (AST/SGOT) 27 U/L Alanine Aminotransferase (ALT/SGPT) 19 U/L Total Bilirubin 0.4 MG/DL Sodium Level 139 MEQ/L Potassium Level 4.0 MEQ/L Chloride Level 105 MEQ/L Carbon Dioxide Level 25.6 MEQ/L Anion Gap 8 MEQ/L Estimat Glomerular Filtration Rate 47 ML/MIN Troponin I LESS THAN 0.02 NG/ML Urine Color YELLOW Urine Turbidity CLEAR Urine pH 5.5 Urine Specific [place] 1.015 Urine Protein NEG mg/dL Urine Glucose (UA) NEG mg/dL Urine Ketones NEG mg/dL Urine Occult Blood TRACE Urine Nitrite NEG Urine Bilirubin NEG Urine Leukocyte Esterase NEG Urine RBC 0-3 /hpf Urine WBC 0-2 /hpf Urine Squamous Epithelial Cells 0-5 /hpf Urine Bacteria NONE /hpf Microscopic Urinalysis Comment CULT NOT INDICATED MDM Medical Decision Making Medical Screen Exam Complete: Yes Emergency Medical Condition: Yes Medical Record Reviewed: Yes Interpretation(s) The CBC is normal except for hemoglobin of 12.2 and hematocrit of 34.8. The complete metabolic profile shows a creatinine 1.1 with a GFR of 47 and albumen 3.2 but is otherwise unremarkable. The troponin I is normal. Urinalysis shows clear with trace blood and is otherwise normal and culture is not indicated. Differential Diagnosis Hypo-/hyperglycemia, electrolyte disorder, renal insufficiency, anemia, urinary tract infection Narrative Course It is now 0356 and the patient wants to go home and is medically cleared to go home. She appears is no danger to herself or others at this time. She is to follow-up with Dr. Bucio. Diagnosis Primary Impression: Dementia Additional Instructions: Follow-up with Dr. Bucio. The blood work and urine is unremarkable. You have copies of the blood work and urine done tonight. Disposition: 01 DISCHARGE HOME Condition: Stable Franco Campoverde MD Mar 28, 2017 02:56
[2017-03-28] MEDS ORDERED: SODIUM CHLORIDE 0.9% FLUSH 5 ML FLUSH IV FLUSH PRN (03:00)
[2017-03-28 03:19] LABS: AUTOMATED NEUTROPHIL # 4.1 TH/MM3 (1.8-7.7); BASOPHIL # 0.1 TH/MM3 (0-0.2); BASOPHIL % 1.7 % (0.0-2.0); EOSINOPHIL # 0.1 TH/MM3 (0-0.4); EOSINOPHIL % 1.8 % (0.0-4.0); HEMATOCRIT 34.8 % (35.0-46.0); HEMO FLAGS DIFF FINAL; LYMPH % 27.2 % (9.0-44.0); LYMPHOCYTE # 1.8 TH/MM3 (1.0-4.8); MEAN CELL VOLUME 81.7 FL (80.0-100.0); MEAN CORPUSCULAR HEMOGLOBIN 26.4 PG (27.0-34.0); MEAN CORPUSCULAR HGB CONC 32.3 % (32.0-36.0); MONO % 6.3 % (0.0-8.0); PLATELET COUNT 250 TH/MM3 (150-450); RED BLOOD COUNT 4.26 MIL/MM3 (4.00-5.30); RED CELL DISTRIBUTION WIDTH 17.9 % (11.6-17.2); WHITE BLOOD COUNT 6.5 TH/MM3 (4.0-11.0)
[2017-03-28 03:21] VITALS: O2SAT 97
[2017-03-28 03:25] VITALS: BP 174/77; PULSE 70; RESP 16; O2SAT 97
[2017-03-28 03:27] LABS: CHLORIDE 105 MEQ/L (98-107); SODIUM (NA) 139 MEQ/L (136-145)
[2017-03-28 03:31] LABS: ANION GAP 8 MEQ/L (5-15); BICARBONATE 25.6 MEQ/L (21.0-32.0); BLOOD UREA NITROGEN 17 MG/DL (7-18)
[2017-03-28 03:34] LABS: ALT (GPT) 19 U/L (10-53); AST (GOT) 27 U/L (15-37); GLOMERULAR FILTRATION RATE 47 ML/MIN (>89)
[2017-03-28 03:35] LABS: TOTAL BILIRUBIN ADULT 0.4 MG/DL (0.2-1.0)
[2017-03-28 03:37] LABS: ALKALINE PHOSPHATASE 97 U/L (45-117)
[2017-03-28 03:44] LABS: GLUCOSE,URINE NEG (NEG); KETONE, URINE NEG (NEG); NITRITE,URINE NEG (NEG); PH, URINE 5.5 (5.0-8.5)
[2017-03-28 03:48] LABS: BLOOD, URINE TRACE (NEG); URINE COLOR YELLOW (YELLW/STRAW)
[2017-03-28 03:49] LABS: COMMENT (UR) CULT NOT INDICATED; CULTURE IF INDICATED CULT NOT INDICATED; RBC, URINE 0-3 /hpf (0-3); SQUAMOUS EPITHELIAL CELL URINE 0-5 /hpf (0-5); WBC, URINE 0-2 /hpf (0-5)
[2017-03-28 04:00] VITALS: BP 185/77; PULSE 67; RESP 18; O2SAT 96
== END 2017-03-28 04:13 | disposition home or self-care (01) ==
LOC: PHED 02:06
DX: F03.90 Unspecified dementia, unspecified severity, without behavioral disturbance, psychotic disturbance, mood disturbance, and anxiety (principal); E78.00 Pure hypercholesterolemia, unspecified; I11.0 Hypertensive heart disease with heart failure; I25.10 Atherosclerotic heart disease of native coronary artery without angina pectoris; I25.2 Old myocardial infarction; I50.9 Heart failure, unspecified; I71.4 Abdominal aortic aneurysm, without rupture; K85.90 Acute pancreatitis without necrosis or infection, unspecified; J44.9 Chronic obstructive pulmonary disease, unspecified; Z88.0 Allergy status to penicillin; Z95.5 Presence of coronary angioplasty implant and graft; Z86.73 Personal history of transient ischemic attack (TIA), and cerebral infarction without residual deficits
CPT/HCPCS: 80053; 81001; 84484; 85025; 99283

== ENCOUNTER 2017-04-21 06:53 | Inpatient (IN) | payer MEDICARE, BC ==
[~2017-04-21] VITALS: Ht 157.5 cm; Wt 37.6 kg
[~2017-04-21 06:53] MED LIST changes: -COEN200C4 PO; +COQ-50CA2 PO; +FERR325C PO; +LACTCAP8 PO; +LOPE1LIQ13 PO; +MIRT1TAB PO; +NITR1SUB3 SL; +POTA-243 PO; -PROT40TA PO; +SYMB160A INH
[2017-04-21 07:06] VITALS: BP 193/87; PULSE 63; RESP 15; TEMP 98.3; O2SAT 95
[2017-04-21] MEDS ORDERED: NEXI20CA PO (07:52)
[2017-04-21] MEDS ORDERED: LOPE2TAB21 PO (07:52)
[2017-04-21] MEDS ORDERED: MELA1TAB18 PO (07:52)
[2017-04-21] MEDS ORDERED: TUMS500C CHEW (07:52)
--- NOTE | 2017-04-21 08:24 | PD ---
HPI Chief Complaint: Fall Time Seen by Provider: 07:33 Travel History International Travel<30 days: No Contact w/Intl Traveler<30days: No Traveled to known affect area: No History of Present Illness HPI This is a 86-year-old female history dementia, COPD, hyperlipidemia, hypertension, who presents today after mechanical fall last night. Patient presents with low back pain and right hip pain. The patient states she is not able to ambulate secondary to the pain. She denies any other injuries. PFSH Past Medical History AAA: Yes Arthritis: Yes Autoimmune Disease: No Blood Disorders: No Anxiety: Yes Depression: No Heart Rhythm Problems: No Cancer: No Cardiac Catheterization: Yes Cardiovascular Problems: Yes High Cholesterol: Yes Chest Pain: Yes Congestive Heart Failure: Yes COPD: Yes Cerebrovascular Accident: Yes Coronary Artery Disease: Yes Diabetes: No Diminished Hearing: No Endocrine: No GERD: Yes Genitourinary: No Headaches: No Hepatitis: No Hiatal Hernia: No Heparin Induced Thrombocytopen: No Hypertension: Yes Immune Disorder: No Implanted Vascular Access Dvce: No Kidney Stones: No Medical other: Yes (LEFT TEMPORAL ANEURYSM) Musculoskeletal: Yes (ARTHRITIS) Neurologic: No Psychiatric: No Reproductive: No Respiratory: Yes (copd) Immunizations Current: Yes Migraines: No Myocardial Infarction: Yes Pancreatitis: Yes Renal Failure: No Seizures: No Sleep Apnea: No Thyroid Disease: No Ulcer: No Menopausal: Yes : 4 Para: 3 Miscarriage: 1 Past Surgical History Abdominal Surgery: Yes AICD: No Arteriovenous Shunt: No Body Medical Devices: CARDIAC STENT, ANEURYSM CLIP Cardiac Surgery: Yes (CARDIAC STENT 1973) Cholecystectomy: Yes Coronary Artery Bypass Graft: No Coronary Stent: Yes Ear Surgery: No Endocrine Surgery: No Eye Surgery: Yes (RIGHT OPTIC NERVE CLIP) Genitourinary Surgery: No Gynecologic Surgery: No Insulin Pump: No Joint Replacement: No Neurologic Surgery: Yes (R TEMPORAL ANEURYSM REPAIR.) Oral Surgery: No Pacemaker: No Thoracic Surgery: No Other Surgery: Yes (LEFT CAROTID ENDARTARECTOMY, femoral vascular bypass surgery) Social History Alcohol Use: No Tobacco Use: No Substance Use: No Allergies-Medications (Allergen,Severity, Reaction): Coded Allergies: Sulfa (Sulfonamide Antibiotics) (Unverified Allergy, Severe, Rash, ) penicillin G (Unverified Allergy, Severe, Swelling, 04/21/17) phenytoin (Unverified Allergy, Severe, Rash, 04/21/17) MRI PRECAUTION (Verified Adverse Reaction, Severe, ANEURYSM CLIP CX PER S MILES ADB, 04/21/17) acetaminophen (Unverified Adverse Reaction, Severe, Hallucinations, ) diazepam (Unverified Adverse Reaction, Severe, HALLUCINATIONS, 04/21/17) oxycodone (Unverified Adverse Reaction, Severe, Hallucinations, 04/21/17) aspirin (Unverified Adverse Reaction, Intermediate, Bleeding, 04/21/17) PT STATES IT IS "FULL STRENGTH ASA",BABY ASA OK. FULL STRENGTH GIVES HER A NOSE BLEED Reported Meds & Prescriptions Reported Meds & Active Scripts Active Reported Melatonin 10 Mg-1 Mg Tab 20 Mg PO HS PRN Loperamide (Loperamide HCl) 2 Mg Tablet 1 Mg PO PRN Tums (Calcium Carbonate (Antacid)) 500 Mg Chew 500 Mg CHEW PRN Nexium (Esomeprazole DR) 20 Mg Capdr 20 Mg PO DAILY PRN Coq-10 (Coenzyme Q10 (Ubidecarenone)) 50 Mg Cap 100 Mg PO DAILY Imodium A-D (Loperamide HCl) 1 Mg/7.5 Ml Liquid 1 Mg PO DAILY Iron (Ferrous Sulfate) 325 Mg Cap 325 Mg PO DAILY Probiotic (Lactobacillus Acidophilus) 10 Billion Cell Cap 1 Cap PO DAILYAC Nitroglycerin SL (Nitroglycerin) 0.4 Mg Subl 0.4 Mg SL DIRECTED PRN ONE TABLET UNDER THE TONGUE NEEDED FOR CHEST PAIN, MAY REPEAT EVERY FIVE MINUTES FOR A TOTAL OF 3 DOSES OR CALL 911 IF NO RELIEF Symbicort Inh (Budesonide/Formoterol Fumarate) 160-4.5 Mcg/Act Aero 2 Puff INH Q12HR Mirtazapine 7.5 Mg Tab 7.5 Mg PO HS Klor-Con 10 (Potassium Chloride) 10 Meq Tab 10 Meq PO BID Metoprolol Tartrate 25 Mg Tab 12.5 Mg PO BID Review of Systems ROS Limitations: Other: (limited secondary to mild dementia.) Except as stated in HPI: all other systems reviewed are Neg HENT: No: Headaches, Neck Pain Cardiovascular: No: Chest Pain or Discomfort, Palpitations Respiratory: No: Cough, Shortness of Breath Gastrointestinal: No: Nausea, Vomiting, Abdominal Pain Genitourinary: No: Dysuria, Incontinence Musculoskeletal: Positive: Limited ROM (secondary to pain), Pain (low back and right hip) Skin: No Rash, No Lesions Neurologic: No: Headache, Change in Mentation (no acute change) Physical Exam Narrative GENERAL: Elderly weak-appearing female in no acute respiratory distress. SKIN: Focused skin assessment warm/dry. HEAD: Atraumatic. Normocephalic. EYES:No scleral icterus. No injection or drainage. ENT: No nasal bleeding or discharge. Mucous membranes pink and moist. NECK: Trachea midline. Supple. CARDIOVASCULAR: Regular rate and rhythm. No murmur appreciated. RESPIRATORY: No accessory muscle use. Clear to auscultation. Breath sounds equal bilaterally. GASTROINTESTINAL: Abdomen soft, non-tender, nondistended. No rebound or guarding. MUSCULOSKELETAL: Shortening of the right lower extremity. Patient has pain in her right knee and right hip area. Patient also has subjective pain in her lower lumbar region. NEUROLOGICAL: Awake and mildly confused. No obvious cranial nerve deficits. Motor grossly within normal limits. Normal speech. Data Data Last Documented VS Vital Signs Date Time Temp Pulse Resp B/P (MAP) Pulse Ox O2 Delivery O2 Flow Rate FiO2 04/21/17 09:51 93 21 04/21/17 08:58 Room Air 04/21/17 07:06 98.3 63 15 2.00 Orders Orders Femur (Ap & Lat/2vws) (04/21/17 07:33) Knee, Ltd (1 Or 2vws) (04/21/17 07:33) Pelvis, Ap Only (Routine) (04/21/17 07:33) Electrocardiogram (04/21/17 08:10) Complete Blood Count With Diff (04/21/17 08:10) Comprehensive Metabolic Panel (04/21/17 08:10) Prothrombin Time / Inr (Pt) (04/21/17 08:10) Act Partial Throm Time (Ptt) (04/21/17 08:10) Iv Access Insert/Monitor (04/21/17 08:10) Ecg Monitoring (04/21/17 08:10) Oximetry (04/21/17 08:10) Hip, Uni(Ap&Lat) Wo Ap Pelvis (04/21/17 08:10) Chest, Single Ap (04/21/17 ) Admit To Inpatient (04/21/17 ) Vital Signs (Adult) Q4H (04/21/17 09:23) Activity Bed Rest (04/21/17 09:23) Diet Npo (04/21/17 Breakfast) Sodium Chloride 0.9% Flush (Ns Flush) (04/21/17 09:30) Sodium Chloride 0.9% Flush (Ns Flush) (04/21/17 21:00) Basic Metabolic Panel (Bmp) (04/22/17 06:00) Complete Blood Count With Diff (04/22/17 06:00) Resp Oxygen Lior C Titrat 1-4 L (04/21/17 ) Scd Bilateral/Knee High CHERYL.BID (04/21/17 09:23) Inpatient Certification (04/21/17 ) Ondansetron Inj (Zofran Inj) (04/21/17 10:15) Enalaprilat Inj (Vasotec Inj) (04/21/17 10:15) Budeson-Formot 160-4.5 Mg Inh (Symbicort (04/22/17 09:00) Metoprolol Tartrate (Lopressor) (04/22/17 09:00) Mirtazapine (Remeron) (04/21/17 21:00) Pantoprazole (Protonix) (04/21/17 10:15) Ferrous Sulfate (Ferrous Sulfate) (04/22/17 09:00) Pill Splitter (Pill Splitter) (04/21/17 10:30) Admit Order (Ed Use Only) (04/21/17 10:48) Consult Orthopedic (04/21/17 ) Labs Laboratory Tests Test 04/21/17 08:47 White Blood Count 8.8 TH/MM3 Red Blood Count 4.24 MIL/MM3 Hemoglobin 11.6 GM/DL Hematocrit 35.6 % Mean Corpuscular Volume 84.1 FL Mean Corpuscular Hemoglobin 27.4 PG Mean Corpuscular Hemoglobin Concent 32.6 % Red Cell Distribution Width 17.3 % Platelet Count 140 TH/MM3 Mean Platelet Volume 8.1 FL Neutrophils (%) (Auto) 84.8 % Lymphocytes (%) (Auto) 8.2 % Monocytes (%) (Auto) 5.8 % Eosinophils (%) (Auto) 0.6 % Basophils (%) (Auto) 0.6 % Neutrophils # (Auto) 7.4 TH/MM3 Lymphocytes # (Auto) 0.7 TH/MM3 Monocytes # (Auto) 0.5 TH/MM3 Eosinophils # (Auto) 0.0 TH/MM3 Basophils # (Auto) 0.1 TH/MM3 CBC Comment DIFF FINAL Differential Comment Prothrombin Time 11.5 SEC Prothromb Time International Ratio 1.0 RATIO Activated Partial Thromboplast Time 25.9 SEC Blood Urea Nitrogen 15 MG/DL Creatinine 0.97 MG/DL Random Glucose 107 MG/DL Total Protein 6.6 GM/DL Albumin 3.2 GM/DL Calcium Level 9.6 MG/DL Alkaline Phosphatase 87 U/L Aspartate Amino Transf (AST/SGOT) 23 U/L Alanine Aminotransferase (ALT/SGPT) 24 U/L Total Bilirubin 1.0 MG/DL Sodium Level 142 MEQ/L Potassium Level 4.0 MEQ/L Chloride Level 108 MEQ/L Carbon Dioxide Level 25.3 MEQ/L Anion Gap 9 MEQ/L Estimat Glomerular Filtration Rate 54 ML/MIN MDM Medical Decision Making Medical Screen Exam Complete: Yes Emergency Medical Condition: Yes Differential Diagnosis Pelvis fracture versus lumbar spine fracture versus femur fracture Narrative Course 86-year-old female presents with right sided hip and femur pain. The patient on mechanical fall last night. The patient has a history of dementia and unable to give clear historical data. X-ray reveals a intertrochanteric fracture of the right hip. The patient has been discussed with Dr. Bolden, on- call orthopedic surgeon, who will arrange to take the patient to the operating room today. Case is [facility] will [facility] the patient to the service. Diagnosis Primary Impression: Closed right hip fracture Additional Impressions: dementia History of abdominal aortic aneurysm (AAA) HLD (hyperlipidemia) chemical fall Admitting Information Admitting Physician Requests: Admit Leo Baires MD Apr 21, 2017 08:24
--- NOTE | 2017-04-21 08:25 | RADRPT ---
EXAM DATE/TIME: 04/21/2017 07:48 CORRECTION Corrected on: April 21, 2017; [facility] COMPARISON: No previous studies available for comparison. INDICATIONS : Pelvis pain post fall. MEDICAL HISTORY : Myocardial infarction. SURGICAL HISTORY : None. ENCOUNTER: Initial ACUITY: 1 day PAIN SCORE: 10/10 LOCATION: Right pelvis. FINDINGS: The bony structures of the pelvis are grossly intact. No joint dislocation is demonstrated. However, there appears to be a nondisplaced impaction fracture through the neck of the proximal left femur. Th e right proximal femur is unremarkable on this single AP view of the pelvis. However, dedicated films of the right hip demonstrate an oblique nondisplaced fracture through the trochanteric region.. Ther e are degenerative changes involving the lower lumbar spine. There is osteopenia of the bony structur es. CONCLUSION: 1. There appears to be a nondisplaced impaction fracture through the neck of the proximal left femur. 2. There is an oblique nondisplaced fracture through the trochanteric region of the proximal right fe mur. Tj Vasquez MD on April 21, 2017 at 8:22 Board Certified Radiologist. This report was verified electronically. Tj Vasquez MD on April 21, 2017 at 8:32 Board Certified Radiologist. This report was verified electronically.
--- NOTE | 2017-04-21 08:27 | RADRPT ---
EXAM DATE/TIME: 04/21/2017 07:49 CORRECTION Corrected on: April 21, 2017; [facility] COMPARISON: PELVIS AP ONLY, April 21, 2017, 7:48. INDICATIONS : Right hip pain post fall. MEDICAL HISTORY : None. SURGICAL HISTORY : None. ENCOUNTER: Initial ACUITY: 1 day PAIN SCORE: 10/10 LOCATION: Right femur. FINDINGS: There is an oblique nondisplaced fracture through the trochanteric region of the proximal right femur . The femoral head remains within the acetabulum. The shaft of the femur is intact. The distal femur is grossly intact. No joint dislocation. There is evidence of peripheral vascular disease. CONCLUSION: There is an oblique nondisplaced fracture through the trochanteric region of the proximal right femur . Tj Vasquez MD on April 21, 2017 at 8:24 Board Certified Radiologist. This report was verified electronically. Tj Vasquez MD on April 21, 2017 at 8:30 Board Certified Radiologist. This report was verified electronically.
--- NOTE | 2017-04-21 08:28 | RADRPT ---
EXAM DATE/TIME: 04/21/2017 07:49 [facility] COMPARISON: No previous studies available for comparison. INDICATIONS : Right knee pain post fall. MEDICAL HISTORY : None. SURGICAL HISTORY : None. ENCOUNTER: Initial ACUITY: 1 day PAIN SCORE: 5/10 LOCATION: Right knee. FINDINGS: Two view examination of the right knee demonstrates no evidence of fracture or dislocation. Bony min eralization is normal. The suprapatellar soft tissues have a normal configuration. There are vascula r calcifications in the soft tissues. A calcification just superior to the patella in the location of the quadriceps tendon.. CONCLUSION: 1. No acute fracture joint dislocation. 2. Calcific tendinitis of the quadriceps tendon. 3. PVD Tj Vasquez MD on April 21, 2017 at 8:25 Board Certified Radiologist. This report was verified electronically.
--- NOTE | 2017-04-21 08:29 | RADRPT ---
EXAM DATE/TIME: 04/21/2017 07:49 [facility] COMPARISON: No previous studies available for comparison. INDICATIONS : Right hip pain post fall. MEDICAL HISTORY : None. SURGICAL HISTORY : None. ENCOUNTER: Initial ACUITY: 1 day PAIN SCORE: 10/10 LOCATION: Right hip. FINDINGS: A two view examination of the right hip was performed. There is an oblique nondisplaced fracture thro ugh the trochanteric region of the proximal right femur. No joint dislocation is demonstrated. There is evidence of peripheral vascular disease. CONCLUSION: Oblique nondisplaced fracture through the trochanteric region of the proximal right femur. jT Vasquez MD on April 21, 2017 at 8:26 Board Certified Radiologist. This report was verified electronically.
--- NOTE | 2017-04-21 08:44 | RADRPT ---
EXAM DATE/TIME: 04/21/2017 08:00 [facility] COMPARISON: CHEST SINGLE AP, October 04, 2016, 15:06. INDICATIONS : Pain post fall. MEDICAL HISTORY : Myocardial infarction. SURGICAL HISTORY : None. ENCOUNTER: Initial ACUITY: 1 day PAIN SCORE: 10 LOCATION: Bilateral chest FINDINGS: A single view of the chest demonstrates the lungs to be symmetrically aerated without evidence of mas s, infiltrate or effusion. There is hyperaeration of both lung chacon. There is stable chronic inter stitial changes. The cardiomediastinal contours are unremarkable. Osseous structures are intact. CONCLUSION: No acute disease. No significant change has occurred. Tj Vasquez MD on April 21, 2017 at 8:42 Board Certified Radiologist. This report was verified electronically.
[2017-04-21 08:58] VITALS: O2SAT 92
[2017-04-21 08:59] LABS: AUTOMATED NEUTROPHIL # 7.4 TH/MM3 (1.8-7.7); BASOPHIL # 0.1 TH/MM3 (0-0.2); BASOPHIL % 0.6 % (0.0-2.0); EOSINOPHIL % 0.6 % (0.0-4.0); HEMATOCRIT 35.6 % (35.0-46.0); HEMO FLAGS DIFF FINAL; LYMPH % 8.2 % (9.0-44.0); LYMPHOCYTE # 0.7 TH/MM3 (1.0-4.8); MEAN CELL VOLUME 84.1 FL (80.0-100.0); MEAN CORPUSCULAR HEMOGLOBIN 27.4 PG (27.0-34.0); MEAN CORPUSCULAR HGB CONC 32.6 % (32.0-36.0); MONO % 5.8 % (0.0-8.0); NEUT % 84.8 % (16.0-70.0); PLATELET COUNT 140 TH/MM3 (150-450); RED BLOOD COUNT 4.24 MIL/MM3 (4.00-5.30); RED CELL DISTRIBUTION WIDTH 17.3 % (11.6-17.2); WHITE BLOOD COUNT 8.8 TH/MM3 (4.0-11.0)
[2017-04-21 09:08] LABS: APTT (PATIENT) 25.9 SEC (24.3-30.1); PROTHROMBIN TIME - PATIENT 11.5 SEC (9.8-11.6)
--- NOTE | 2017-04-21 09:27 | HHI.HP ---
HPI Service [facility] Hospitalists Primary Care Physician Calli Nguyen MD Admission Diagnosis Diagnoses: Travel History International Travel<30 Days: No Contact w/Intl Traveler <30 Da: No Traveled to Known Affected Are: No History of Present Illness 86 yo female presented after mechanical fall. This HPI is obtained from the ED physician and EMR. History is limited because the patient has demetia. Apparently her daughter was at bedside, but then left the hospital. Her medical history is significant for COPD, hyperlipidemia, HTN, and dementia. Apparently the patient suffered a mechanical fall yesterday. The situation surrounding the fall is unclear. The patient does not remember falling. She does endorse some pain of the right hip. Otherwise the patient is without complaints or concerns when seen and evaluated. She is a patient of Dr. Nguyen. Review of Systems ROS Limitations: Poor Historian Constitutional: DENIES: Fever, Chills, Change in appetite Endocrine: DENIES: Heat/cold intolerance Eyes: DENIES: Blurred vision, Eye pain Ears, nose, mouth, throat: COMPLAINS OF: Hearing loss Respiratory: DENIES: Shortness of breath Cardiovascular: DENIES: Chest pain Gastrointestinal: DENIES: Abdominal pain Musculoskeletal: COMPLAINS OF: Joint pain Neurologic: COMPLAINS OF: Abnormal gait, Localized weakness, Poor Balance Psychiatric: COMPLAINS OF: Confusion Dementia Past Family Social History Past Medical History HTN AAA Dementia GERD Dementia CHF CAD Temporal aneurysm Arthritis Past Surgical History Abdominal surgery Cardiac stent in 1973 Right optic nerve clip Right temporal aneurysm repair Left carotid endarterectomy Reported Medications Melatonin 10 Mg-1 Mg Tab 20 Mg PO HS PRN Loperamide (Loperamide HCl) 2 Mg Tablet 1 Mg PO PRN Tums (Calcium Carbonate (Antacid)) 500 Mg Chew 500 Mg CHEW PRN Nexium (Esomeprazole DR) 20 Mg Capdr 20 Mg PO DAILY PRN Coq-10 (Coenzyme Q10 (Ubidecarenone)) 50 Mg Cap 100 Mg PO DAILY Imodium A-D (Loperamide HCl) 1 Mg/7.5 Ml Liquid 1 Mg PO DAILY Iron (Ferrous Sulfate) 325 Mg Cap 325 Mg PO DAILY Probiotic (Lactobacillus Acidophilus) 10 Billion Cell Cap 1 Cap PO DAILYAC Nitroglycerin SL (Nitroglycerin) 0.4 Mg Subl 0.4 Mg SL DIRECTED PRN ONE TABLET UNDER THE TONGUE NEEDED FOR CHEST PAIN, MAY REPEAT EVERY FIVE MINUTES FOR A TOTAL OF 3 DOSES OR CALL 911 IF NO RELIEF Symbicort Inh (Budesonide/Formoterol Fumarate) 160-4.5 Mcg/Act Aero 2 Puff INH Q12HR Mirtazapine 7.5 Mg Tab 7.5 Mg PO HS Klor-Con 10 (Potassium Chloride) 10 Meq Tab 10 Meq PO BID Metoprolol Tartrate 25 Mg Tab 12.5 Mg PO BID Allergies: Coded Allergies: Sulfa (Sulfonamide Antibiotics) (Unverified Allergy, Severe, Rash, ) penicillin G (Unverified Allergy, Severe, Swelling, 04/21/17) phenytoin (Unverified Allergy, Severe, Rash, 04/21/17) MRI PRECAUTION (Verified Adverse Reaction, Severe, ANEURYSM CLIP CX PER S MILES ADB, 04/21/17) acetaminophen (Unverified Adverse Reaction, Severe, Hallucinations, ) diazepam (Unverified Adverse Reaction, Severe, HALLUCINATIONS, 04/21/17) oxycodone (Unverified Adverse Reaction, Severe, Hallucinations, 04/21/17) aspirin (Unverified Adverse Reaction, Intermediate, Bleeding, 04/21/17) PT STATES IT IS "FULL STRENGTH ASA",BABY ASA OK. FULL STRENGTH GIVES HER A NOSE BLEED Active Ordered Medications Social History Denies alcohol, tobacco, or substance abuse Physical Exam Vital Signs Vital Signs Date Time Temp Pulse Resp B/P (MAP) Pulse Ox O2 Delivery O2 Flow Rate FiO2 04/21/17 08:58 92 Room Air 04/21/17 07:06 98.3 63 15 193/87 (122) 95 Nasal Cannula 2.00 Physical Exam GENERAL: Thin-appearing, elderly, pleasantly confused placement SKIN: No rashes, ecchymoses or lesions. Cool and dry. HEAD: Atraumatic. Normocephalic. No temporal or scalp tenderness. EYES: Pupils equal round and reactive. Extraocular motions intact. No scleral icterus. No injection or drainage. ENT: Nose without bleeding, purulent drainage or septal hematoma. Throat without erythema, tonsillar hypertrophy or exudate. Uvula midline. Airway patent. NECK: Supple CARDIOVASCULAR: Regular rate and rhythm without murmurs, gallops, or rubs. RESPIRATORY: Anterior and lateral breath sounds are clear to auscultation. GASTROINTESTINAL: Abdomen soft, non-tender, nondistended. MUSCULOSKELETAL: Pain of right knee and right hip. She is unable to lift the right leg against gravity. She is able to lift the left leg against gravity denies any pain with this movement. Her upper extremity strength is equal throughout. NEUROLOGICAL: Awake and alert. She is confused. She does answer questions appropriately. Laboratory Laboratory Tests Test 04/21/17 08:47 White Blood Count 8.8 Red Blood Count 4.24 Hemoglobin 11.6 Hematocrit 35.6 Mean Corpuscular Volume 84.1 Mean Corpuscular Hemoglobin 27.4 Mean Corpuscular Hemoglobin Concent 32.6 Red Cell Distribution Width 17.3 Platelet Count 140 Mean Platelet Volume 8.1 Neutrophils (%) (Auto) 84.8 Lymphocytes (%) (Auto) 8.2 Monocytes (%) (Auto) 5.8 Eosinophils (%) (Auto) 0.6 Basophils (%) (Auto) 0.6 Neutrophils # (Auto) 7.4 Lymphocytes # (Auto) 0.7 Monocytes # (Auto) 0.5 Eosinophils # (Auto) 0.0 Basophils # (Auto) 0.1 CBC Comment DIFF FINAL Differential Comment Prothrombin Time 11.5 Prothromb Time International Ratio 1.0 Activated Partial Thromboplast Time 25.9 Result Diagram: 04/21/17 0847 Imaging Right hip x-ray: Oblique nondisplaced fracture through the trochanteric region of the proximal right femur Right femur x-ray: Oblique non-fracture through the trochanteric region of the proximal right femur Right knee x-ray: No acute fracture joint dislocation. Calcific tendinitis of the quadriceps tendon. no PVD Pelvis x-ray: Nondisplaced impaction fracture through the neck of the proximal left femur. Oblique nondisplaced fracture through the trochanter region of the right femur. Chest x-ray: No acute disease. No significant changes. Caprini VTE Risk Assessment Caprini VTE Risk Assessment: Mod/High Risk (score >= 2) Caprini Risk Assessment Model Point Value = 1 Point Value = 2 Point Value = 3 Point Value = 5 Age 41-60 Minor surgery BMI > 25 kg/m2 Swollen legs Varicose veins or History of unexplained or recurrent spontaneous Oral contraceptives or hormone replacement Sepsis (< 1 month) Serious lung disease, including pneumonia (< 1 month) Abnormal pulmonary function Acute myocardial infarction Congestive heart failure (< 1 month) History of inflammatory bowel disease Medical patient at bed rest Age 61-74 Arthroscopic surgery Major open surgery (> 45 min) Laparoscopic surgery (> 45 min) Malignancy Confined to bed (> 72 hours) Immobilizing plaster cast Central venous access Age >= 75 History of VTE Family history of VTE Factor V Leiden Prothrombin [id number] Lupus anticoagulant Anticardiolipin antibodies Elevated serum homocysteine Heparin-induced thrombocytopenia Other congenital or acquired thrombophilia Stroke (< 1 month) Elective arthroplasty Hip, pelvis, or leg fracture Acute spinal cord injury (< 1 month) Prophylaxis Regimen Total Risk Factor Score Risk Level Prophylaxis Regimen 0-1 Low Early ambulation 2 Moderate Order ONE of the following: *Sequential Compression Device (SCD) *Heparin 5000 units SQ BID 3-4 Higher Order ONE of the following medications: *Heparin 5000 units SQ TID *Enoxaparin/Lovenox 40 mg SQ daily (WT < 150 kg, CrCl > 30 mL/min) *Enoxaparin/Lovenox 30 mg SQ daily (WT < 150 kg, CrCl > 10-29 mL/min) *Enoxaparin/Lovenox 30 mg SQ BID (WT < 150 kg, CrCl > 30 mL/min) AND/OR *Sequential Compression Device (SCD) 5 or more Highest Order ONE of the following medications: *Heparin 5000 units SQ TID (Preferred with Epidurals) *Enoxaparin/Lovenox 40 mg SQ daily (WT < 150 kg, CrCl > 30 mL/min) *Enoxaparin/Lovenox 30 mg SQ daily (WT < 150 kg, CrCl > 10-29 mL/min) *Enoxaparin/Lovenox 30 mg SQ BID (WT < 150 kg, CrCl > 30 mL/min) AND *Sequential Compression Device (SCD) Assessment and Plan Problem List: (1) HLD (hyperlipidemia) ICD Code: E78.5 - Hyperlipidemia, unspecified (2) Fracture, femur ICD Code: S72.90XA - Unspecified fracture of unspecified femur, initial encounter for closed fracture Status: Acute Permanent Comment: Bilateral Last Edited By: Brandy Arnold on Apr 21, 2017 10: 16 (3) HTN (hypertension) ICD Code: I10 - HTN (hypertension) Status: Chronic (4) Anemia ICD Code: D64.9 - Anemia, unspecified Status: Acute (5) Coronary artery disease ICD Code: I25.10 - Atherosclerotic heart disease of [place] coronary artery without angina pectoris Status: Acute (6) PVD (peripheral vascular disease) ICD Code: I73.9 - PVD (peripheral vascular disease) Status: Acute Assessment and Plan 86-year-old female presents after mechanical fall. Traumatic fall: See imaging above. Multiple fractures noted including trochanteric region of the right proximal femur, nondisplaced impaction fracture through the neck of proximal left femur. - ER physician spoke with Dr. Avila, plan for OR today - pre and post op orders per him - pain control per Ortho - Will need PT eval post surgery for d/c needs HTN - currently NPO - Resume antihypertensives post op: metoprolol tartrate 12.5 mg BID, Depression - Mirtazapine 7.5 mg at bedtime COPD - Symbicort GERD - Continue Nexium Code Status Full Discussed Condition With ER physician Physician Certification 2 Midnight Certification Type: Admission for Inpatient Services Order for Inpatient Services The services are ordered in accordance with Medicare regulations or non- Medicare payer requirements, as applicable. In the case of services not specified as inpatient-only, they are appropriately provided as inpatient services in accordance with the 2-midnight benchmark. Estimated LOS (days): 2 days is the estimated time the patient will need to remain in the hospital, assuming treatment plan goals are met and no additional complications. Post-Hospital Plan: Not yet determined Problem Qualifiers (1) Fracture, femur: Brandy Arnold MD Apr 21, 2017 09:27
[2017-04-21] MEDS ORDERED: SODIUM CHLORIDE 0.9% FLUSH 10 ML FLUSH IV FLUSH PRN ×2 (09:30→12:15)
[2017-04-21 09:36] LABS: ANION GAP 9 MEQ/L (5-15); AST (GOT) 23 U/L (15-37); BICARBONATE 25.3 MEQ/L (21.0-32.0); BLOOD UREA NITROGEN 15 MG/DL (7-18); CHLORIDE 108 MEQ/L (98-107); GLOMERULAR FILTRATION RATE 54 ML/MIN (>89); SODIUM (NA) 142 MEQ/L (136-145)
[2017-04-21 09:37] LABS: ALT (GPT) 24 U/L (10-53)
[2017-04-21 09:39] LABS: ALKALINE PHOSPHATASE 87 U/L (45-117)
[2017-04-21 09:51] VITALS: O2SAT 93
[2017-04-21] MEDS ORDERED: ONDANSETRON HCL 4 MG/2 ML VIAL IV PUSH PRN (10:15)
[2017-04-21] MEDS ORDERED: PANTOPRAZOLE SOD 20 MG DELAYED RELEASE TAB PO PRN (10:15)
[2017-04-21] MEDS ORDERED: PILL SPLITTER OTHER PRN (10:30)
[2017-04-21] MEDS ORDERED: CLINDAMYCIN PHOS 600 MG/4 ML VIAL ONE (11:39)
[2017-04-21] MEDS ORDERED: VANCOMYCIN HCL 1000 MG VIAL ONE ×2 (11:39→11:52)
[2017-04-21] MEDS ORDERED: GENTAMICIN SULFATE 80 MG/2 ML VIAL ONE (11:39)
[2017-04-21] MEDS ORDERED: DEXAMETHASONE SOD PHOS 4 MG/ML VIAL IV ONE (12:00)
[2017-04-21] MEDS ORDERED: PROPOFOL 200 MG/20 ML AMP IV ONE (12:00)
[2017-04-21] MEDS ORDERED: ONDANSETRON HCL 4 MG/2 ML VIAL IV PUSH ONE (12:00)
[2017-04-21] MEDS ORDERED: ePHEDrine/NS 25 MG/5 ML SYR IV ONE (12:00)
[2017-04-21] MEDS ORDERED: LIDOCAINE HCL 1% PF 5 ML AMPULE OTHER ONE (12:00)
[2017-04-21] MEDS ORDERED: NORC5TAB PO (12:12)
--- NOTE | 2017-04-21 12:12 | EKG ---
Date Performed: 04/21/2017 Time Performed: 08:53:03 PTAGE: 86 years EKG: Baseline artifact present Sinus rhythm NONSPECIFIC T-WAVE ABNORMALITY BORDERLINE ECG No significant change from prior electrocardiogram. PREVIOUS TRACING : 10/04/2016 15.23 DOCTOR: Deny Kaur Interpretating Date/Time 04/21/2017 12:10:16
[2017-04-21] MEDS ORDERED: LACTULOSE SYRUP 20 GM/30 ML CUP PO PRN (12:15)
[2017-04-21] MEDS ORDERED: PROMETHAZINE HCL 25 MG TAB PO PRN (12:15)
[2017-04-21] MEDS ORDERED: SENNOSIDES 8.6 MG TAB PO PRN (12:15)
[2017-04-21] MEDS ORDERED: POVIDONE IODINE 10% SOLN 118 ML BOTTLE TOPICAL PRN (12:15)
[2017-04-21] MEDS ORDERED: MAGNESIUM HYDROXIDE SUSP 30 ML CUP PO PRN (12:15)
[2017-04-21] MEDS ORDERED: BISACODYL 10 MG SUPP RECTAL PRN (12:15)
[2017-04-21] MEDS ORDERED: ACETAMINOPHEN/HYDROcodone 325 MG/5 MG TAB PO PRN (12:15)
[2017-04-21] MEDS ORDERED: ACETAMINOPHEN 325 MG TAB PO PRN (12:15)
[2017-04-21] MEDS ORDERED: Post-op Orders (for Pharmacy) MISC XX ONE (12:15)
--- NOTE | 2017-04-21 12:19 | PD.CONS ---
cc: Jai Thurman Jr., MD HPI Service [facility] Consult Requested By Primary Care Physician Calli Nguyen MD Admission Diagnosis Diagnoses: (1) HLD (hyperlipidemia) (2) Fracture, femur (3) HTN (hypertension) (4) Anemia (5) Coronary artery disease (6) PVD (peripheral vascular disease) History of Present Illness CC: RIGHT HIP PAIN DATE OF CONSULT 04/21/17 86-year-old female with a significantly complicated past medical history including hypertension, CHF, dementia and coronary artery disease presents complaining of right hip pain after fall. -c/o right hip pain and inability bear weight. -X-ray taken the emergency department reveal right IT fem fracture. -Denies any head injuries. Denies loss of consciousness. -Currently is not alert but talkative, pain localized at right hip, patient's is 3 out of 10, exacerbated by any range of motion, WB, relieved at rest and with IV pain medicine, pain is sharp nonradiating, dull, not associated with any paresthesia and numbness to the extremity. ROS - General Review of Systems ROS Limitations: Poor Historian Constitutional: DENIES: Fever, Chills, Change in appetite Endocrine: DENIES: Heat/cold intolerance Eyes: DENIES: Blurred vision, Eye pain Ears, nose, mouth, throat: COMPLAINS OF: Hearing loss Respiratory: DENIES: Shortness of breath Cardiovascular: DENIES: Chest pain Gastrointestinal: DENIES: Abdominal pain Musculoskeletal: COMPLAINS OF: Joint pain Neurologic: COMPLAINS OF: Abnormal gait, Localized weakness, Poor Balance Psychiatric: COMPLAINS OF: Confusion Dementia PFSH Past Family Social History Past Medical History HTN AAA Dementia GERD Dementia CHF CAD Temporal aneurysm Arthritis Past Surgical History Abdominal surgery Cardiac stent in 1973 Right optic nerve clip Right temporal aneurysm repair Left carotid endarterectomy Reported Medications Melatonin 10 Mg-1 Mg Tab 20 Mg PO HS PRN Loperamide (Loperamide HCl) 2 Mg Tablet 1 Mg PO PRN Tums (Calcium Carbonate (Antacid)) 500 Mg Chew 500 Mg CHEW PRN Nexium (Esomeprazole DR) 20 Mg Capdr 20 Mg PO DAILY PRN Coq-10 (Coenzyme Q10 (Ubidecarenone)) 50 Mg Cap 100 Mg PO DAILY Imodium A-D (Loperamide HCl) 1 Mg/7.5 Ml Liquid 1 Mg PO DAILY Iron (Ferrous Sulfate) 325 Mg Cap 325 Mg PO DAILY Probiotic (Lactobacillus Acidophilus) 10 Billion Cell Cap 1 Cap PO DAILYAC Nitroglycerin SL (Nitroglycerin) 0.4 Mg Subl 0.4 Mg SL DIRECTED PRN ONE TABLET UNDER THE TONGUE NEEDED FOR CHEST PAIN, MAY REPEAT EVERY FIVE MINUTES FOR A TOTAL OF 3 DOSES OR CALL 911 IF NO RELIEF Symbicort Inh (Budesonide/Formoterol Fumarate) 160-4.5 Mcg/Act Aero 2 Puff INH Q12HR Mirtazapine 7.5 Mg Tab 7.5 Mg PO HS Klor-Con 10 (Potassium Chloride) 10 Meq Tab 10 Meq PO BID Metoprolol Tartrate 25 Mg Tab 12.5 Mg PO BID Allergies: Coded Allergies: Sulfa (Sulfonamide Antibiotics) (Unverified Allergy, Severe, Rash, ) penicillin G (Unverified Allergy, Severe, Swelling, 04/21/17) phenytoin (Unverified Allergy, Severe, Rash, 04/21/17) MRI PRECAUTION (Verified Adverse Reaction, Severe, ANEURYSM CLIP CX PER S MILES ADB, 04/21/17) acetaminophen (Unverified Adverse Reaction, Severe, Hallucinations, ) diazepam (Unverified Adverse Reaction, Severe, HALLUCINATIONS, 04/21/17) oxycodone (Unverified Adverse Reaction, Severe, Hallucinations, 04/21/17) aspirin (Unverified Adverse Reaction, Intermediate, Bleeding, 04/21/17) PT STATES IT IS "FULL STRENGTH ASA",BABY ASA OK. FULL STRENGTH GIVES HER A NOSE BLEED Active Ordered Medications Social History Denies alcohol, tobacco, or substance abuse Past Family Social History Past Medical History HTN AAA Dementia GERD Dementia CHF CAD Temporal aneurysm Arthritis Past Surgical History Abdominal surgery Cardiac stent in 1973 Right optic nerve clip Right temporal aneurysm repair Left carotid endarterectomy Allergies: Coded Allergies: Sulfa (Sulfonamide Antibiotics) (Unverified Allergy, Severe, Rash, ) penicillin G (Unverified Allergy, Severe, Swelling, 04/21/17) phenytoin (Unverified Allergy, Severe, Rash, 04/21/17) MRI PRECAUTION (Verified Adverse Reaction, Severe, ANEURYSM CLIP CX PER S MILES ADB, 04/21/17) acetaminophen (Unverified Adverse Reaction, Severe, Hallucinations, ) diazepam (Unverified Adverse Reaction, Severe, HALLUCINATIONS, 04/21/17) oxycodone (Unverified Adverse Reaction, Severe, Hallucinations, 04/21/17) aspirin (Unverified Adverse Reaction, Intermediate, Bleeding, 04/21/17) PT STATES IT IS "FULL STRENGTH ASA",BABY ASA OK. FULL STRENGTH GIVES HER A NOSE BLEED Active Ordered Medications Current Medications Medications (Trade) Dose Ordered Sig/Lisa Route Start Time Stop Time Status Last Admin (NS Flush) 2 ml UNSCH PRN IV FLUSH 04/21/17 09:30 (NS Flush) 2 ml BID IV FLUSH 04/21/17 21:00 (Zofran Inj) 4 mg Q6H PRN IV PUSH 04/21/17 10:15 04/21/17 11:20 (Vasotec Inj) 1.25 mg Q6H PRN IV PUSH 04/21/17 10:15 (Symbicort 160-4.5 Inh) 2 puff Q12HR INH 04/22/17 09:00 (Lopressor) 12.5 mg BID PO 04/22/17 09:00 (Remeron) 7.5 mg HS PO 04/21/17 21:00 (Protonix) 20 mg DAILY PRN PO 04/21/17 10:15 (Ferrous Sulfate) 325 mg DAILY PO 04/22/17 09:00 (Pill Splitter) 1 ea UNSCH PRN OTHER 04/21/17 10:30 Reported Meds & Active Scripts Active [place] (Hydrocodone-Acetaminophen) 5-325 mg Tab 1 Tab PO Q4H PRN Reported Melatonin 10 Mg-1 Mg Tab 20 Mg PO HS PRN Loperamide (Loperamide HCl) 2 Mg Tablet 1 Mg PO PRN Tums (Calcium Carbonate (Antacid)) 500 Mg Chew 500 Mg CHEW PRN Nexium (Esomeprazole DR) 20 Mg Capdr 20 Mg PO DAILY PRN Coq-10 (Coenzyme Q10 (Ubidecarenone)) 50 Mg Cap 100 Mg PO DAILY Imodium A-D (Loperamide HCl) 1 Mg/7.5 Ml Liquid 1 Mg PO DAILY Iron (Ferrous Sulfate) 325 Mg Cap 325 Mg PO DAILY Probiotic (Lactobacillus Acidophilus) 10 Billion Cell Cap 1 Cap PO DAILYAC Nitroglycerin SL (Nitroglycerin) 0.4 Mg Subl 0.4 Mg SL DIRECTED PRN ONE TABLET UNDER THE TONGUE NEEDED FOR CHEST PAIN, MAY REPEAT EVERY FIVE MINUTES FOR A TOTAL OF 3 DOSES OR CALL 911 IF NO RELIEF Symbicort Inh (Budesonide/Formoterol Fumarate) 160-4.5 Mcg/Act Aero 2 Puff INH Q12HR Mirtazapine 7.5 Mg Tab 7.5 Mg PO HS Klor-Con 10 (Potassium Chloride) 10 Meq Tab 10 Meq PO BID Metoprolol Tartrate 25 Mg Tab 12.5 Mg PO BID Social History Denies alcohol, tobacco, or substance abuse Physical Exam Vital Signs Vital Signs Date Time Temp Pulse Resp B/P (MAP) Pulse Ox O2 Delivery O2 Flow Rate FiO2 04/21/17 11:34 04/21/17 09:51 93 21 04/21/17 08:58 92 Room Air 04/21/17 07:06 98.3 63 15 193/87 (122) 95 Nasal Cannula 2.00 Physical Exam Demented and confused .No acute distress. Head: NC/AT Neck: No pain with any range of motion and neck. Trachea is midline. No tenderness to palpation along posterior cervical elements. Pulmonary: Normal respiratory effort. Bilateral upper extremity: No deformities Intact sensation distally in median, ulnar, and radial nerve. Intact motor in anterior interosseous, posterior interosseous, and ulnar nerve. 2+ radial artery pulses. Good cap refill. RIGHT lower extremity: Mild shortening and external rotation, grossly Neurovascularly intact, +EHL/FHL. + PT/DP pulses. Supple compartments. LEFT lower extremity: No deformity, grossly Neurovascularly intact, +EHL/FHL. + PT/DP pulses. Supple compartments. Laboratory Laboratory Tests Test 04/21/17 08:47 White Blood Count 8.8 Red Blood Count 4.24 Hemoglobin 11.6 Hematocrit 35.6 Mean Corpuscular Volume 84.1 Mean Corpuscular Hemoglobin 27.4 Mean Corpuscular Hemoglobin Concent 32.6 Red Cell Distribution Width 17.3 Platelet Count 140 Mean Platelet Volume 8.1 Neutrophils (%) (Auto) 84.8 Lymphocytes (%) (Auto) 8.2 Monocytes (%) (Auto) 5.8 Eosinophils (%) (Auto) 0.6 Basophils (%) (Auto) 0.6 Neutrophils # (Auto) 7.4 Lymphocytes # (Auto) 0.7 Monocytes # (Auto) 0.5 Eosinophils # (Auto) 0.0 Basophils # (Auto) 0.1 CBC Comment DIFF FINAL Differential Comment Prothrombin Time 11.5 Prothromb Time International Ratio 1.0 Activated Partial Thromboplast Time 25.9 Blood Urea Nitrogen 15 Creatinine 0.97 Random Glucose 107 Total Protein 6.6 Albumin 3.2 Calcium Level 9.6 Alkaline Phosphatase 87 Aspartate Amino Transf (AST/SGOT) 23 Alanine Aminotransferase (ALT/SGPT) 24 Total Bilirubin 1.0 Sodium Level 142 Potassium Level 4.0 Chloride Level 108 Carbon Dioxide Level 25.3 Anion Gap 9 Estimat Glomerular Filtration Rate 54 Result Diagram: 04/21/17 0847 04/21/17 0847 Imaging 2V right hip reveal nondisplaced right intertrochanteric femur fracture. Assessment & Plan Assessment and Plan 86-year-old female with a h/o dementia and complicated past medical history sustained a fall complaining of right hip pain and inability to bear weight. X- rays examination in the ER revealed a nondisplaced right intertrochanteric femur fracture. I recommend right hip intramedullary chino. I had A discussion with her daughter over the phone. I discussed my treatment plans with the patient, as well as risks, benefits and alternatives of surgical Intervention versus nonoperative treatment. In this case, the risks of operative intervention involves bleeding, infection, risks of damage to neurovascular structures, the risk of needing further surgery, posttraumatic arthritis and the risks involved with complication from anesthesia. We will proceed with the above procedure. They accepts these risks; understands and agrees with my recommendations. I also discussed my proposed postoperative care and follow-up plan. All questions were answered. Plan for OR. NPO. Patient consented. Thanks for the consult, thanks for allowing me to participate in this patient's medical care. Jai Thurman Jr., MD Apr 21, 2017 12:19
--- NOTE | 2017-04-21 13:07 | PD.OP ---
cc: Jai Thurman Jr., MD Operative Report Date of Surgery: Apr 21, 2017 Preoperative Diagnosis: Right hip intertrochanteric femur fracture Postoperative Diagnosis: Same Procedure: Right hip intramedullary chino fixation Anesthesia: Spinal Surgeon: Jai Thurman Telecommunications Officer(s): Hospital staff Resident Surgeon: TAMMIE [id number] The patient received intravenous vancomycin. After the appropriate anesthesia was administered, and the patient was transferred to the fracture table. The fracture was anatomically reduced under fluoroscopic imaging. The RIGHT hip was prepped and draped in usual sterile fashion. We made incision just proximal to the tip of the greater trochanter. We dissected down through the deep fascia. We used a threaded guidewire at the tip of the greater trochanter which was placed down to the metaphyseal region on both the AP and lateral views. We reamed proximally. Using fluoroscopic analysis we templated the appropriate size for the short nail. This nail was then placed into position under fluoroscopic guidance. We made incision laterally based on the position of the associated jig. We then placed a threaded guidewire into the center, center of the femoral head. The appropriate length for the helical blade was measured. We drilled laterally and then step reamed the femoral neck and femoral head region. The helical blade was placed into position. We then tightened the proximal set screw, which was followed by releasing one turn off of the screw to allow for compression. Traction was released from the leg and then manual compression was performed. The nail was secured distally with a single screw off of the jig using fluoroscopic guidance. We took final fluoroscopic imaging which revealed that the fracture was in very good position. The hardware was in good position as well. The wounds were thoroughly irrigated and then closed with a 0 Vicryl followed by 2-0 Vicryl and sandra. The postoperative plan is to start 50% weightbearing. Additionally, we will initiate postoperative antibiotics for 24 hours along with DVT prophylaxis consisting of early mobilization, SCDs, compression stockings, and Lovenox. IMPLANTS USED Synthes short trochanteric nail, size: short, 10mm POSTP-OP PLAN OF ACTIVITY Antibiotics: vancomycin Antiocoagulation: Lovenox Weight bearing status: 50% WBs with PT Dressing: Change daily, by RN starting postop day 2 Dispo: Jai Vargas Jr., MD Apr 21, 2017 13:07
[2017-04-21] MEDS ORDERED: DO NOT ADM ANY ANTICOAGULANT DRUGS PRN (13:30)
[2017-04-21] MEDS ORDERED: *ENALAPRILAT 1.25 MG/ML VIAL PERIprocedural Use ONLY ONE ×2 (14:24→14:49)
[2017-04-21] MEDS ORDERED: *ONDANSETRON 4 MG VIAL PERIprocedural Use ONLY ONE (14:35)
[2017-04-21] MEDS ORDERED: *morphine SULFATE 8 MG/ML PERIprocedure ONLY ONE (15:03)
--- NOTE | 2017-04-21 15:05 | RADRPT ---
EXAM DATE/TIME: 04/21/2017 12:53 [facility] COMPARISON: HIP RIGHT (AP&LAT 2/3VWS) WO AP PELVIS, April 21, 2017, 7:49. INDICATIONS : Surgical repair. Intertrochanteric nail placement. MEDICAL HISTORY : None. SURGICAL HISTORY : None. ENCOUNTER: Initial ACUITY: 1 day PAIN SCORE: Non-responsive. LOCATION: Right hip. FINDINGS: There are postsurgical changes with operative reduction and internal fixation of the previously seen fracture. The alignment is anatomic. CONCLUSION: Postsurgical changes as above. Zeke Gottlieb MD on April 21, 2017 at 15:03 Board Certified Radiologist. This report was verified electronically.
[2017-04-21] MEDS ORDERED: hydrALAZINE HCL 20 MG/ML VIAL ONE (15:10)
[2017-04-21] MEDS ORDERED: hydrALAZINE HCL 20 MG/ML VIAL IV ONE (15:30)
[2017-04-21] MEDS ORDERED: NALOXONE HCL 0.4 MG/ML AMP ONE (15:33)
[2017-04-21] MEDS ORDERED: NALOXONE HCL 0.4 MG/ML AMP IV ONE (15:45)
[2017-04-21] MEDS ORDERED: SODIUM CHLORID 0.9% 500 ML INJ 500 ML IV ONE (16:00)
[2017-04-21 16:30] VITALS: BP 120/58; PULSE 74; RESP 16; TEMP 95.7; O2SAT 95
[2017-04-21 19:00] VITALS: BP 104/51; PULSE 75; RESP 19; TEMP 98.5; O2SAT 100
[2017-04-21] MEDS ORDERED: ZOLPIDEM TARTRATE 5 MG TAB PO PRN (21:00)
[2017-04-21] MEDS ORDERED: SODIUM CHLORIDE 0.9% FLUSH 10 ML FLUSH IV FLUSH SCH (21:00)
[2017-04-21] MEDS: DOCUSATE SODIUM 50 MG/SENNA 8.6 MG TAB PO SCH (22:03)
[2017-04-21] MEDS: MIRTAZAPINE 15 MG TAB PO SCH (22:04)
[2017-04-21] MEDS: SODIUM CHLORIDE 0.9% FLUSH 10 ML FLUSH IV FLUSH SCH (22:13)
[2017-04-22] VITALS: BP 109/54; PULSE 78; RESP 16; TEMP 96.5; O2SAT 95
[2017-04-22 06:30] LABS: AUTOMATED NEUTROPHIL # 8.9 TH/MM3 (1.8-7.7); BASOPHIL % 0.4 % (0.0-2.0); EOSINOPHIL % 0.2 % (0.0-4.0); HEMATOCRIT 28.9 % (35.0-46.0); HEMO FLAGS DIFF FINAL; LYMPH % 9.7 % (9.0-44.0); MEAN CELL VOLUME 84.6 FL (80.0-100.0); MEAN CORPUSCULAR HEMOGLOBIN 27.5 PG (27.0-34.0); MEAN CORPUSCULAR HGB CONC 32.5 % (32.0-36.0); MONO % 6.8 % (0.0-8.0); NEUT % 82.9 % (16.0-70.0); PLATELET COUNT 123 TH/MM3 (150-450); RED BLOOD COUNT 3.42 MIL/MM3 (4.00-5.30); RED CELL DISTRIBUTION WIDTH 17.7 % (11.6-17.2); WHITE BLOOD COUNT 10.7 TH/MM3 (4.0-11.0)
[2017-04-22 06:50] LABS: BICARBONATE 24.2 MEQ/L (21.0-32.0); POTASSIUM 3.6 MEQ/L (3.5-5.1)
[2017-04-22 08:42] VITALS: BP 123/57; PULSE 78; RESP 18; O2SAT 93
[2017-04-22 08:48] VITALS: O2SAT 93
[2017-04-22] MEDS: DOCUSATE SODIUM 50 MG/SENNA 8.6 MG TAB PO SCH ×2 (09:00→20:42)
[2017-04-22] MEDS: FERROUS SULFATE 325 MG (65 MG ELEMENTAL IRON) TAB PO SCH (09:00)
[2017-04-22] MEDS: SODIUM CHLORIDE 0.9% FLUSH 10 ML FLUSH IV FLUSH SCH ×2 (09:00→20:42)
[2017-04-22] MEDS: METOPROLOL TARTRATE 25 MG TAB PO SCH ×2 (09:00→21:31)
[2017-04-22] MEDS: BUDESONIDE-FORMOTEROL 160/4.5 MCG INHALER INH SCH ×2 (09:00→20:42)
[2017-04-22 11:34] VITALS: BP 107/58; PULSE 93; RESP 18; O2SAT 93
[2017-04-22] MEDS: VANCOMYCIN INJ 1,000 MG in SODIUM CHLOR 0.9% 250 ML INJ 250 ML IV SCH ×3 (12:59)
[2017-04-22] MEDS: ENOXAPARIN SODIUM 30 MG/0.3 ML SYRINGE SQ SCH (12:59)
--- NOTE | 2017-04-22 15:47 | PD.ORT.PN ---
Subjective Subjective Remarks no issues Objective Vitals Vital Signs Date Time Temp Pulse Resp B/P (MAP) Pulse Ox O2 Delivery O2 Flow Rate FiO2 04/22/17 08:48 93 Nasal Cannula 2.00 04/22/17 08:42 78 18 123/57 (79) 93 04/22/17 00:00 96.5 78 16 109/54 (72) 95 04/21/17 19:00 98.5 75 19 104/51 (68) 100 04/21/17 16:30 95.7 74 16 120/58 (78) 95 04/21/17 16:06 65 16 118/58 (78) 94 Nasal Cannula 2 04/21/17 16:00 63 16 103/51 (68) 93 Nasal Cannula 2 I/O 04/21/17 04/21/17 04/21/17 04/22/17 04/22/17 04/22/17 07:00 15:00 23:00 07:00 15:00 23:00 Intake Total 900 ml 700 ml Output Total 20 ml Balance 880 ml 700 ml Intake Oral 200 ml IV Total 500 ml Other 900 ml Output Estimated Blood Loss 20 ml # Voids 1 2 Result Diagram: 04/22/1752104/22/17521 Objective Remarks Alert awake and oriented -3. No acute distress. Pulmonary: Normal respiratory effort. Right lower extremity: Neurovascularly intact, +EHL/FHL, dressing clean, dry and intact. + PT/DP pulses. Supple compartments. Negative Homans sign. Left lower extremity: neurovascularly intact Assessment & Plan Assessment and Plan POD #1- right hip intramedullary chino Doing well, expected postop pain, no complaints. Antibiotics DVT prophylaxis, Lovenox Weightbearing status: 50% Dressing change: Change daily, by RN starting postop day 2 Dispo: Stable and okay to discharge from orthopedic standpoint. Follow-up: 2 weeks, Dr. Thurman, [facility] Jai Vernon Jr., MD Apr 22, 2017 15:46
--- NOTE | 2017-04-22 17:11 | HHI.PR ---
Subjective Remarks Follow-up right hip fracture 04/22/17-patient seen and examined, she status post repair postop day 1. Confused But no acute event overnight. Currently afebrile. Positive for bowel movement Objective Vitals Vital Signs Date Time Temp Pulse Resp B/P (MAP) Pulse Ox O2 Delivery O2 Flow Rate FiO2 04/22/17 08:48 93 Nasal Cannula 2.00 04/22/17 08:42 78 18 123/57 (79) 93 04/22/17 00:00 96.5 78 16 109/54 (72) 95 04/21/17 19:00 98.5 75 19 104/51 (68) 100 I/O 04/21/17 04/21/17 04/21/17 04/22/17 04/22/17 04/22/17 07:00 15:00 23:00 07:00 15:00 23:00 Intake Total 900 ml 700 ml Output Total 20 ml Balance 880 ml 700 ml Intake Oral 200 ml IV Total 500 ml Other 900 ml Output Estimated Blood Loss 20 ml # Voids 1 2 Result Diagram: 04/22/17 0522 04/22/1722 Imaging Last Impressions Hip X-Ray 04/21/17809 Signed Impressions: Service Date/Time: Friday, April 21, 2017 07:49 - CONCLUSION: Oblique nondisplaced fracture through the trochanteric region of the proximal right femur. Tj Vasquez MD Pelvis X-Ray 04/21/17732 Signed Impressions: Service Date/Time: Friday, April 21, 2017 07:48 - CONCLUSION: 1. There appears to be a nondisplaced impaction fracture through the neck of the proximal left femur. 2. There is an oblique nondisplaced fracture through the trochanteric region of the proximal right femur. Tj Vasquez MD Knee X-Ray 04/21/17732 Signed Impressions: Service Date/Time: Friday, April 21, 2017 07:49 - CONCLUSION: 1. No acute fracture joint dislocation. 2. Calcific tendinitis of the quadriceps tendon. 3. PVD Tj Vasquez MD Femur X-Ray 04/21/17732 Signed Impressions: Service Date/Time: Friday, April 21, 2017 07:49 - CONCLUSION: There is an oblique nondisplaced fracture through the trochanteric region of the proximal right femur. Tj Vasquez MD Chest X-Ray 04/21/17 0000 Signed Impressions: Service Date/Time: Friday, April 21, 2017 08:00 - CONCLUSION: No acute disease. No significant change has occurred. Tj Vasquez MD Objective Remarks GENERAL: NAD SKIN: Warm and dry. HEAD: Normocephalic. EYES: No scleral icterus. No injection or drainage. NECK: Supple, trachea midline. No JVD or lymphadenopathy. CARDIOVASCULAR: Regular rate and rhythm without murmurs, gallops, or rubs. RESPIRATORY: Breath sounds equal bilaterally. No accessory muscle use. GASTROINTESTINAL: Abdomen soft, non-tender, nondistended. MUSCULOSKELETAL: No cyanosis, or edema. Right hip repair-neurovascular intact BACK: Nontender without obvious deformity. No CVA tenderness. Procedures Right hip intramedullary chino fixation 04/21/17 A/P Problem List: (1) Fracture, femur ICD Code: S72.90XA - Unspecified fracture of unspecified femur, initial encounter for closed fracture Status: Acute Permanent Comment: Bilateral Last Edited By: Brandy Arnold on Apr 21, 2017 10: 16 (2) HLD (hyperlipidemia) ICD Code: E78.5 - Hyperlipidemia, unspecified (3) HTN (hypertension) ICD Code: I10 - HTN (hypertension) Status: Chronic (4) Anemia ICD Code: D64.9 - Anemia, unspecified Status: Acute (5) Coronary artery disease ICD Code: I25.10 - Atherosclerotic heart disease of [place] coronary artery without angina pectoris Status: Acute (6) PVD (peripheral vascular disease) ICD Code: I73.9 - PVD (peripheral vascular disease) Status: Acute Assessment and Plan 86-year-old female with Traumatic fall Multiple fractures noted including trochanteric region of the right proximal femur, nondisplaced impaction fracture through the neck of proximal left femur. Status post Right hip intramedullary chino fixation 04/21/17 Management per orthopedic surgery Continue current postop care PT to treat and eval HTN Continue with metoprolol tartrate 12.5 mg BID, Depression Continue Mirtazapine 7.5 mg at bedtime COPD No exacerbation On Symbicort, DuoNeb when necessary GERD - Continue Nexium DVT prophylaxis: Lovenox Problem Qualifiers (1) Fracture, femur: Colten Nelson MD Apr 22, 2017 17:11
[2017-04-22 19:26] VITALS: BP 161/72; PULSE 86; RESP 17; O2SAT 80
[2017-04-22] MEDS: MULTIVITAMINS/MINERALS THERAPEUTIC TAB PO SCH (20:42)
[2017-04-22] MEDS: MIRTAZAPINE 15 MG TAB PO SCH (20:42)
[2017-04-22 22:18] VITALS: PULSE 101; RESP 18; O2SAT 73
--- NOTE | 2017-04-22 22:46 | RADRPT ---
EXAM DATE/TIME: 04/22/2017 23:21 [facility] COMPARISON: CHEST SINGLE AP, April 21, 2017, 8:00. INDICATIONS : Hypoxia MEDICAL HISTORY : Myocardial infarction. SURGICAL HISTORY : None. ENCOUNTER: Subsequent ACUITY: 2 days PAIN SCORE: 0/10 LOCATION: chest FINDINGS: A single view of the chest demonstrates the lungs to be symmetrically aerated without evidence of mas s, infiltrate or effusion. The cardiomediastinal contours are unremarkable with calcification noted in the aortic knob. Osseous structures are intact. Mild hyperaeration with stable prominence of the interstitium. CONCLUSION: No acute disease. No significant change has occurred. Bhargav Kingston MD on April 22, 2017 at 22:43 Board Certified Radiologist. This report was verified electronically.
[2017-04-22 23:04] LABS: BLOOD GAS BASE EXCESS -0.2 mmol/L (-2-2); BLOOD GAS CARBOXYHEMOGLOBIN 1.7 % (0-4); BLOOD GAS HCO3 24 mmol/L (22-26); BLOOD GAS METHEMOGLOBIN 0.7 % (0-2); BLOOD GAS O2 HGB SATURATION 97 % (90-100); BLOOD GAS OXYGEN CONTENT 13.3 Vol % (12.0-20.0); BLOOD GAS PCO2 39 mmHg (38-42); BLOOD GAS PO2 155 mmHg (61-120); BLOOD GAS TOTAL HGB 9.5 G/DL (12.0-16.0); CRITICAL VALUE NO; DRAW SITE RT BRACHIAL; LITER FLOW 7 L/M; NUMBER OF ARTERIAL PUNCTURES 1; OXYGEN DEVICE SIMPLE MASK; STAT YES; TEMP CORR TO 98.6
[2017-04-22 23:32] LABS: AUTOMATED NEUTROPHIL # 8.2 TH/MM3 (1.8-7.7); BASOPHIL # 0.1 TH/MM3 (0-0.2); EOSINOPHIL # 0.3 TH/MM3 (0-0.4); EOSINOPHIL % 3.2 % (0.0-4.0); HEMATOCRIT 30.1 % (35.0-46.0); HEMO FLAGS DIFF FINAL; LYMPH % 8.5 % (9.0-44.0); LYMPHOCYTE # 0.9 TH/MM3 (1.0-4.8); MEAN CELL VOLUME 84.5 FL (80.0-100.0); MEAN CORPUSCULAR HEMOGLOBIN 27.4 PG (27.0-34.0); MEAN CORPUSCULAR HGB CONC 32.4 % (32.0-36.0); MONO % 5.1 % (0.0-8.0); NEUT % 82.2 % (16.0-70.0); PLATELET COUNT 136 TH/MM3 (150-450); RED BLOOD COUNT 3.57 MIL/MM3 (4.00-5.30); RED CELL DISTRIBUTION WIDTH 17.5 % (11.6-17.2)
[2017-04-22 23:47] LABS: BICARBONATE 27.8 MEQ/L (21.0-32.0); POTASSIUM 3.9 MEQ/L (3.5-5.1)
[2017-04-23] VITALS (8 sets, daily range): BP systolic 131–160; BP diastolic 51–86; PULSE 78–92; RESP 17–20; TEMP 96.3–98.6; O2SAT 93–100
[2017-04-23] MEDS: ENOXAPARIN SODIUM 30 MG/0.3 ML SYRINGE SQ SCH ×2 (00:05→12:30)
[2017-04-23] MEDS: MORPHINE SULFATE 8 MG/ML INJ IV PUSH PRN ×4 (00:06→19:51)
[2017-04-23] MEDS: BUDESONIDE-FORMOTEROL 160/4.5 MCG INHALER INH SCH ×2 (09:00→19:58)
[2017-04-23] MEDS: MULTIVITAMINS/MINERALS THERAPEUTIC TAB PO SCH ×2 (09:00→19:58)
[2017-04-23] MEDS: DOCUSATE SODIUM 50 MG/SENNA 8.6 MG TAB PO SCH ×2 (09:00→19:58)
[2017-04-23] MEDS: FERROUS SULFATE 325 MG (65 MG ELEMENTAL IRON) TAB PO SCH (09:00)
[2017-04-23] MEDS: METOPROLOL TARTRATE 25 MG TAB PO SCH ×2 (09:00→19:49)
[2017-04-23] MEDS: SODIUM CHLORIDE 0.9% FLUSH 10 ML FLUSH IV FLUSH SCH ×2 (09:18→19:58)
--- NOTE | 2017-04-23 10:50 | HHI.PR ---
Subjective Remarks Follow-up right hip fracture 04/22/17-patient seen and examined, she status post repair postop day 1. Confused But no acute event overnight. Currently afebrile. Positive for bowel movement 04/23/17-patient seen and examined, confused and agitated. Currently on 2 point restraints Objective Vitals Vital Signs Date Time Temp Pulse Resp B/P (MAP) Pulse Ox O2 Delivery O2 Flow Rate FiO2 04/23/17 09:24 99 Nasal Cannula 3.00 04/23/17 07:53 96.3 79 20 131/61 (84) 99 04/23/17 00:09 92 17 160/60 (93) 96 04/23/17 00:00 94 Nasal Cannula 3.00 04/22/17 22:50 94 Simple Mask 7.00 04/22/17 22:18 101 18 73 04/22/17 19:26 86 17 161/72 (101) 80 04/22/17 11:34 93 18 107/58 (74) 93 I/O 04/22/17 04/22/17 04/22/17 04/23/17 04/23/17 04/23/17 06:59 14:59 22:59 06:59 14:59 22:59 Intake Total 480 ml 240 ml 240 ml Balance 480 ml 240 ml 240 ml Intake Oral 480 ml 240 ml 240 ml # Voids 3 2 2 # Bowel Movements 0 0 0 Result Diagram: 04/22/17232404/22/172324 Objective Remarks GENERAL: NAD with diffuse and agitated, 2-point restrained upper extremity SKIN: Warm and dry. HEAD: Normocephalic. EYES: No scleral icterus. No injection or drainage. NECK: Supple, trachea midline. No JVD or lymphadenopathy. CARDIOVASCULAR: Regular rate and rhythm without murmurs, gallops, or rubs. RESPIRATORY: Breath sounds equal bilaterally. No accessory muscle use. GASTROINTESTINAL: Abdomen soft, non-tender, nondistended. MUSCULOSKELETAL: No cyanosis, or edema. Right hip repair-neurovascular intact BACK: Nontender without obvious deformity. No CVA tenderness. Procedures Right hip intramedullary chino fixation 04/21/17 A/P Problem List: (1) Fracture, femur ICD Code: S72.90XA - Unspecified fracture of unspecified femur, initial encounter for closed fracture Status: Acute Permanent Comment: Bilateral Last Edited By: Brandy Arnold on Apr 21, 2017 10: 16 (2) HLD (hyperlipidemia) ICD Code: E78.5 - Hyperlipidemia, unspecified (3) HTN (hypertension) ICD Code: I10 - HTN (hypertension) Status: Chronic (4) Anemia ICD Code: D64.9 - Anemia, unspecified Status: Acute (5) Coronary artery disease ICD Code: I25.10 - Atherosclerotic heart disease of [place] coronary artery without angina pectoris Status: Acute (6) PVD (peripheral vascular disease) ICD Code: I73.9 - PVD (peripheral vascular disease) Status: Acute Assessment and Plan 86-year-old female with Traumatic fall Multiple fractures noted including trochanteric region of the right proximal femur, nondisplaced impaction fracture through the neck of proximal left femur. Status post Right hip intramedullary chino fixation 04/21/17 Management per orthopedic surgery Continue current care PT to treat and eval Lovenox for DVT, however will likely need oral anticoagulation on discharge HTN Continue with metoprolol tartrate 12.5 mg BID, Depression Continue Mirtazapine 7.5 mg at bedtime COPD No exacerbation On Symbicort, DuoNeb when necessary GERD - Continue Nexium DVT prophylaxis: Lovenox Problem Qualifiers (1) Fracture, femur: Colten Nelson MD Apr 23, 2017 10:50
[2017-04-23] MEDS: MIRTAZAPINE 15 MG TAB PO SCH (19:58)
[2017-04-24] MEDS: ENOXAPARIN SODIUM 30 MG/0.3 ML SYRINGE SQ SCH ×3 (00:16→23:39)
[2017-04-24 04:07] VITALS: BP 150/85; PULSE 65; RESP 17; TEMP 96.5; O2SAT 95
[2017-04-24] MEDS: MORPHINE SULFATE 8 MG/ML INJ IV PUSH PRN ×2 (04:13→23:50)
[2017-04-24 08:00] VITALS: BP 143/63; PULSE 106; RESP 19; TEMP 96.7; O2SAT 92
[2017-04-24] MEDS: METOPROLOL TARTRATE 25 MG TAB PO SCH ×2 (09:00→19:44)
[2017-04-24] MEDS: MULTIVITAMINS/MINERALS THERAPEUTIC TAB PO SCH ×2 (09:00→19:45)
[2017-04-24] MEDS: DOCUSATE SODIUM 50 MG/SENNA 8.6 MG TAB PO SCH ×2 (09:00→19:45)
[2017-04-24] MEDS: FERROUS SULFATE 325 MG (65 MG ELEMENTAL IRON) TAB PO SCH (09:00)
[2017-04-24] MEDS: BUDESONIDE-FORMOTEROL 160/4.5 MCG INHALER INH SCH ×2 (09:00→19:45)
--- NOTE | 2017-04-24 11:08 | HHI.PR ---
Subjective Remarks Follow-up right hip fracture 04/22/17-patient seen and examined, she status post repair postop day 1. Confused But no acute event overnight. Currently afebrile. Positive for bowel movement 04/23/17-patient seen and examined, confused and agitated. Currently on 2 point restraints 04/24/17-patient seen and examined, still confused and in 2 point restraints upper extremities. Decreased urine output Objective Vitals Vital Signs Date Time Temp Pulse Resp B/P (MAP) Pulse Ox O2 Delivery O2 Flow Rate FiO2 04/24/17 08:00 96.7 106 19 143/63 (89) 92 04/24/17 07:48 Nasal Cannula 3.00 04/24/17 04:07 96.5 65 17 150/85 (106) 95 04/23/17 23:24 98.6 78 18 142/86 (104) 95 04/23/17 19:46 93 Nasal Cannula 3.00 04/23/17 19:15 91 18 131/51 (77) 100 04/23/17 15:40 97.9 81 20 140/64 (89) 95 04/23/17 11:39 96.7 85 20 146/64 (91) 98 I/O 04/23/17 04/23/17 04/23/17 04/24/17 04/24/17 04/24/17 07:00 15:00 23:00 07:00 15:00 23:00 Intake Total 240 ml 120 ml 240 ml 120 ml Output Total 75 ml 1100 ml Balance 240 ml 120 ml 240 ml 45 ml -1100 ml Intake Oral 240 ml 120 ml 240 ml 120 ml Output Urine Total 75 ml 1100 ml Bladder Scan Volume Amount 999 ml # Voids 2 1 2 2 # Bowel Movements 0 0 0 0 Result Diagram: 04/22/17232404/22/172324 Objective Remarks GENERAL: NAD with diffuse and agitated, 2-point restrained upper extremity SKIN: Warm and dry. HEAD: Normocephalic. EYES: No scleral icterus. No injection or drainage. NECK: Supple, trachea midline. No JVD or lymphadenopathy. CARDIOVASCULAR: Regular rate and rhythm without murmurs, gallops, or rubs. RESPIRATORY: Breath sounds equal bilaterally. No accessory muscle use. GASTROINTESTINAL: Abdomen soft, non-tender, nondistended. MUSCULOSKELETAL: No cyanosis, or edema. Right hip repair-neurovascular intact BACK: Nontender without obvious deformity. No CVA tenderness. Procedures Right hip intramedullary chino fixation 04/21/17 A/P Problem List: (1) Fracture, femur ICD Code: S72.90XA - Unspecified fracture of unspecified femur, initial encounter for closed fracture Status: Acute Permanent Comment: Bilateral Last Edited By: Brandy Arnold on Apr 21, 2017 10: 16 (2) HLD (hyperlipidemia) ICD Code: E78.5 - Hyperlipidemia, unspecified (3) HTN (hypertension) ICD Code: I10 - HTN (hypertension) Status: Chronic (4) Anemia ICD Code: D64.9 - Anemia, unspecified Status: Acute (5) Coronary artery disease ICD Code: I25.10 - Atherosclerotic heart disease of [place] coronary artery without angina pectoris Status: Acute (6) PVD (peripheral vascular disease) ICD Code: I73.9 - PVD (peripheral vascular disease) Status: Acute (7) Toxic metabolic encephalopathy ICD Code: G92 - Toxic encephalopathy Assessment and Plan 86-year-old female with Traumatic fall Multiple fractures noted including trochanteric region of the right proximal femur, nondisplaced impaction fracture through the neck of proximal left femur. Status post Right hip intramedullary chino fixation 04/21/17 Management per orthopedic surgery Continue current care PT to treat and eval Lovenox for DVT, however will likely need oral anticoagulation on discharge HTN Continue with metoprolol tartrate 12.5 mg BID, Depression Continue Mirtazapine 7.5 mg at bedtime COPD No exacerbation On Symbicort, DuoNeb when necessary GERD - Continue Nexium Encephalopathy Alter mental status change Likely secondary to anesthesia Continue with restrains Urinary retention Place Shell when necessary FEN: Consider starting IV fluid hydration DVT prophylaxis: Lovenox Problem Qualifiers (1) Fracture, femur: Colten Nelson MD Apr 24, 2017 11:08
[2017-04-24 11:47] VITALS: BP 158/81; PULSE 70; RESP 19; TEMP 96.8; O2SAT 100
[2017-04-24] MEDS: SODIUM CHLORIDE 0.9% FLUSH 10 ML FLUSH IV FLUSH SCH ×2 (13:33→19:45)
[2017-04-24 15:35] VITALS: BP 144/66; PULSE 66; RESP 19; TEMP 97; O2SAT 95
[2017-04-24 19:00] VITALS: BP 156/64; PULSE 81; RESP 19; TEMP 96.7; O2SAT 98
[2017-04-24] MEDS: MIRTAZAPINE 15 MG TAB PO SCH (19:45)
[2017-04-24] MEDS ORDERED: DEXT 5%-NACL 0.45% 1000 ML INJ 1,000 ML IV SCH (22:15)
[2017-04-24] MEDS ORDERED: HALOPERIDOL LACTATE 5 MG/ML AMP IV PUSH ONE (22:30)
[2017-04-25] VITALS (8 sets, daily range): BP systolic 131–179; BP diastolic 52–84; PULSE 64–83; RESP 16–18; TEMP 96.7–98.1; O2SAT 93–100
[2017-04-25] MEDS: METOPROLOL TARTRATE 25 MG TAB PO SCH ×2 (08:03→21:00)
[2017-04-25] MEDS: DOCUSATE SODIUM 50 MG/SENNA 8.6 MG TAB PO SCH ×2 (08:05→21:00)
[2017-04-25] MEDS: FERROUS SULFATE 325 MG (65 MG ELEMENTAL IRON) TAB PO SCH (08:05)
[2017-04-25] MEDS: SODIUM CHLORIDE 0.9% FLUSH 10 ML FLUSH IV FLUSH SCH ×2 (08:05→21:00)
[2017-04-25] MEDS: MULTIVITAMINS/MINERALS THERAPEUTIC TAB PO SCH ×2 (08:05→21:00)
[2017-04-25] MEDS: BUDESONIDE-FORMOTEROL 160/4.5 MCG INHALER INH SCH ×2 (08:05→21:00)
[2017-04-25] MEDS: ENOXAPARIN SODIUM 30 MG/0.3 ML SYRINGE SQ SCH (10:14)
--- NOTE | 2017-04-25 11:36 | HHI.PR ---
Subjective Remarks Follow-up right hip fracture 04/22/17-patient seen and examined, she status post repair postop day 1. Confused But no acute event overnight. Currently afebrile. Positive for bowel movement 04/23/17-patient seen and examined, confused and agitated. Currently on 2 point restraints 04/24/17-patient seen and examined, still confused and in 2 point restraints upper extremities. Decreased urine output 04/25/17-patient seen and examined, lethargic and confused. 2 point restraint upper extremities. Objective Vitals Vital Signs Date Time Temp Pulse Resp B/P (MAP) Pulse Ox O2 Delivery O2 Flow Rate FiO2 04/25/17 08:00 98.1 64 16 133/52 (79) 100 04/25/17 08:00 Nasal Cannula 3.00 04/25/17 04:00 96.7 83 18 131/70 (90) 96 04/25/17 00:00 96.7 78 17 179/84 (115) 97 04/24/17 19:00 96.7 81 19 156/64 (94) 98 04/24/17 15:35 97.0 66 19 144/66 (92) 95 04/24/17 11:47 96.8 70 19 158/81 (106) 100 I/O 04/24/17 04/24/17 04/24/17 04/25/17 04/25/17 04/25/17 06:59 14:59 22:59 06:59 14:59 22:59 Intake Total 120 ml 100 ml 240 ml 577 ml Output Total 75 ml 1100 ml 100 ml Balance 45 ml -1000 ml 140 ml 577 ml Intake Oral 120 ml 100 ml 240 ml 80 ml IV Total 497 ml Output Urine Total 75 ml 1100 ml 100 ml Bladder Scan Volume Amount 999 ml # Voids 2 0 # Bowel Movements 0 1 0 Result Diagram: 04/22/17232404/22/172324 Objective Remarks GENERAL: Lethargic, 2-point restrained upper extremity SKIN: Warm and dry. HEAD: Normocephalic. EYES: No scleral icterus. No injection or drainage. NECK: Supple, trachea midline. No JVD or lymphadenopathy. CARDIOVASCULAR: Regular rate and rhythm without murmurs, gallops, or rubs. RESPIRATORY: Breath sounds equal bilaterally. No accessory muscle use. GASTROINTESTINAL: Abdomen soft, non-tender, nondistended. MUSCULOSKELETAL: No cyanosis, or edema. Right hip repair-neurovascular intact BACK: Nontender without obvious deformity. No CVA tenderness. Procedures Right hip intramedullary chino fixation 04/21/17 A/P Problem List: (1) Fracture, femur ICD Code: S72.90XA - Unspecified fracture of unspecified femur, initial encounter for closed fracture Status: Acute Permanent Comment: Bilateral Last Edited By: Brandy Arnold on Apr 21, 2017 10: 16 (2) HLD (hyperlipidemia) ICD Code: E78.5 - Hyperlipidemia, unspecified (3) HTN (hypertension) ICD Code: I10 - HTN (hypertension) Status: Chronic (4) Anemia ICD Code: D64.9 - Anemia, unspecified Status: Acute (5) Coronary artery disease ICD Code: I25.10 - Atherosclerotic heart disease of [place] coronary artery without angina pectoris Status: Acute (6) PVD (peripheral vascular disease) ICD Code: I73.9 - PVD (peripheral vascular disease) Status: Acute (7) Toxic metabolic encephalopathy ICD Code: G92 - Toxic encephalopathy Assessment and Plan 86-year-old female with Traumatic fall Multiple fractures noted including trochanteric region of the right proximal femur, nondisplaced impaction fracture through the neck of proximal left femur. Status post Right hip intramedullary chino fixation 04/21/17 Management per orthopedic surgery Continue current care PT to treat and eval Lovenox for DVT, however will likely need oral anticoagulation on discharge HTN Continue with metoprolol tartrate 12.5 mg BID, Depression Continue Mirtazapine 7.5 mg at bedtime COPD No exacerbation On Symbicort, DuoNeb when necessary GERD - Continue Nexium Encephalopathy Alter mental status change Likely secondary to anesthesia Continue with restrains Need to place patient by the nursing station Urinary retention Continue with Shell FEN: start gentle IV fluid hydration DVT prophylaxis: Lovenox Problem Qualifiers (1) Fracture, femur: Colten Nelson MD Apr 25, 2017 11:36
[2017-04-25] MEDS: SODIUM CHLOR 0.9% 1000 ML INJ 1,000 ML IV SCH (13:36)
[2017-04-25] MEDS: MIRTAZAPINE 15 MG TAB PO SCH (21:00)
[2017-04-26] VITALS: BP 168/70; PULSE 70; RESP 16; TEMP 97; O2SAT 97
[2017-04-26] MEDS: ENOXAPARIN SODIUM 30 MG/0.3 ML SYRINGE SQ SCH ×2 (00:35→13:27)
[2017-04-26 04:00] VITALS: BP 162/69; PULSE 90; RESP 17; TEMP 98.1; O2SAT 94
[2017-04-26 07:45] VITALS: BP 173/71; PULSE 88; RESP 21; TEMP 96.4; O2SAT 99
[2017-04-26] MEDS: METOPROLOL TARTRATE 25 MG TAB PO SCH ×2 (08:26→20:26)
[2017-04-26] MEDS: DOCUSATE SODIUM 50 MG/SENNA 8.6 MG TAB PO SCH ×2 (08:26→20:26)
[2017-04-26] MEDS: SODIUM CHLORIDE 0.9% FLUSH 10 ML FLUSH IV FLUSH SCH ×2 (08:26→20:27)
[2017-04-26] MEDS: FERROUS SULFATE 325 MG (65 MG ELEMENTAL IRON) TAB PO SCH (08:26)
[2017-04-26] MEDS: MULTIVITAMINS/MINERALS THERAPEUTIC TAB PO SCH ×2 (08:26→20:26)
[2017-04-26 09:21] LABS: BICARBONATE 27.3 MEQ/L (21.0-32.0); POTASSIUM 3.2 MEQ/L (3.5-5.1)
[2017-04-26] MEDS: BUDESONIDE-FORMOTEROL 160/4.5 MCG INHALER INH SCH ×2 (10:16→20:27)
[2017-04-26 11:44] VITALS: BP 151/63; PULSE 98; RESP 21; TEMP 96.5; O2SAT 96
[2017-04-26] MEDS: SODIUM CHLOR 0.9% 1000 ML INJ 1,000 ML IV SCH (11:45)
--- NOTE | 2017-04-26 12:36 | HHI.PR ---
Subjective Remarks Follow-up right hip fracture 04/22/17-patient seen and examined, she status post repair postop day 1. Confused But no acute event overnight. Currently afebrile. Positive for bowel movement 04/23/17-patient seen and examined, confused and agitated. Currently on 2 point restraints 04/24/17-patient seen and examined, still confused and in 2 point restraints upper extremities. Decreased urine output 04/25/17-patient seen and examined, lethargic and confused. 2 point restraint upper extremities. 04/26/17-patient seen and examined, still confused with point restraints in place Objective Vitals Vital Signs Date Time Temp Pulse Resp B/P (MAP) Pulse Ox O2 Delivery O2 Flow Rate FiO2 04/26/17 11:44 96.5 98 21 151/63 (92) 96 04/26/17 07:45 96.4 88 21 173/71 (105) 99 04/26/17 04:00 98.1 90 17 162/69 (100) 94 04/26/17 00:00 97.0 70 16 168/70 (102) 97 04/25/17 21:13 94 Nasal Cannula 3.00 04/25/17 20:00 97.7 72 17 179/75 (109) 93 04/25/17 17:54 Nasal Cannula 3.00 04/25/17 16:00 97.5 70 18 167/69 (101) 98 04/25/17 14:34 97 Nasal Cannula 3.00 I/O 04/25/17 04/25/17 04/25/17 04/26/17 04/26/17 04/26/17 07:00 15:00 23:00 07:00 15:00 23:00 Intake Total 577 ml 484 ml 709 ml 360 ml Output Total 1050 ml 400 ml Balance 577 ml 484 ml -341 ml -40 ml Intake Oral 80 ml 600 ml 360 ml IV Total 497 ml 484 ml 109 ml Output Urine Total 1050 ml 400 ml # Bowel Movements 0 Result Diagram: 04/22/17 2326 04/26/17 0643 Objective Remarks GENERAL: Lethargic, 2-point restrained upper extremity SKIN: Warm and dry. HEAD: Normocephalic. EYES: No scleral icterus. No injection or drainage. NECK: Supple, trachea midline. No JVD or lymphadenopathy. CARDIOVASCULAR: Regular rate and rhythm without murmurs, gallops, or rubs. RESPIRATORY: Breath sounds equal bilaterally. No accessory muscle use. GASTROINTESTINAL: Abdomen soft, non-tender, nondistended. MUSCULOSKELETAL: No cyanosis, or edema. Right hip repair-neurovascular intact BACK: Nontender without obvious deformity. No CVA tenderness. Procedures Right hip intramedullary chino fixation 04/21/17 A/P Problem List: (1) Fracture, femur ICD Code: S72.90XA - Unspecified fracture of unspecified femur, initial encounter for closed fracture Status: Acute Permanent Comment: Bilateral Last Edited By: Brandy Arnold on Apr 21, 2017 10: 16 (2) HLD (hyperlipidemia) ICD Code: E78.5 - Hyperlipidemia, unspecified (3) HTN (hypertension) ICD Code: I10 - HTN (hypertension) Status: Chronic (4) Anemia ICD Code: D64.9 - Anemia, unspecified Status: Acute (5) Coronary artery disease ICD Code: I25.10 - Atherosclerotic heart disease of [place] coronary artery without angina pectoris Status: Acute (6) PVD (peripheral vascular disease) ICD Code: I73.9 - PVD (peripheral vascular disease) Status: Acute (7) Toxic metabolic encephalopathy ICD Code: G92 - Toxic encephalopathy Assessment and Plan 86-year-old female with Traumatic fall Multiple fractures noted including trochanteric region of the right proximal femur, nondisplaced impaction fracture through the neck of proximal left femur. Status post Right hip intramedullary chino fixation 04/21/17 Management per orthopedic surgery Continue current care PT to treat and eval Lovenox for DVT, patient would not be needed oral anticoagulation on discharge per orthopedic surgery HTN Continue with metoprolol tartrate 12.5 mg BID, Depression Continue Mirtazapine 7.5 mg at bedtime COPD No exacerbation On Symbicort, DuoNeb when necessary GERD - Continue Nexium Encephalopathy Alter mental status change Likely secondary to anesthesia Continue with restrains Avoid sedation Need to place patient by the nursing station Urinary retention Continue with Shell FEN: Continue gentle IV fluid hydration DVT prophylaxis: Lovenox Problem Qualifiers (1) Fracture, femur: Colten Nelson MD Apr 26, 2017 12:35
[2017-04-26 15:42] VITALS: BP 93/47; PULSE 75; RESP 21; TEMP 96.2; O2SAT 96
[2017-04-26 20:00] VITALS: BP 103/52; PULSE 73; RESP 16; TEMP 97.9; O2SAT 95
[2017-04-26] MEDS: MIRTAZAPINE 15 MG TAB PO SCH (20:26)
[2017-04-27] VITALS (9 sets, daily range): BP systolic 102–201; BP diastolic 45–85; PULSE 67–96; RESP 16–19; TEMP 95.2–97.5; O2SAT 93–96
[2017-04-27] MEDS: ENALAPRILAT 1.25 MG/ML VIAL IV PUSH PRN ×2 (00:06→23:45)
[2017-04-27] MEDS: ENOXAPARIN SODIUM 30 MG/0.3 ML SYRINGE SQ SCH ×3 (00:06→23:41)
[2017-04-27] MEDS: hydrALAZINE HCL 25 MG TAB PO PRN (01:32)
[2017-04-27] MEDS: BUDESONIDE-FORMOTEROL 160/4.5 MCG INHALER INH SCH ×2 (08:48→20:21)
[2017-04-27] MEDS: MULTIVITAMINS/MINERALS THERAPEUTIC TAB PO SCH ×2 (08:49→20:20)
[2017-04-27] MEDS: DOCUSATE SODIUM 50 MG/SENNA 8.6 MG TAB PO SCH ×2 (08:49→20:20)
[2017-04-27] MEDS: METOPROLOL TARTRATE 25 MG TAB PO SCH ×2 (08:49→20:20)
[2017-04-27] MEDS: FERROUS SULFATE 325 MG (65 MG ELEMENTAL IRON) TAB PO SCH (08:49)
[2017-04-27] MEDS: SODIUM CHLORIDE 0.9% FLUSH 10 ML FLUSH IV FLUSH SCH ×2 (08:49→20:20)
[2017-04-27] MEDS: ACETAMINOPHEN/HYDROcodone 325 MG/5 MG TAB PO PRN ×3 (08:49→23:46)
[2017-04-27] MEDS: SODIUM CHLOR 0.9% 1000 ML INJ 1,000 ML IV SCH (13:00)
--- NOTE | 2017-04-27 13:55 | HHI.PR ---
Subjective Remarks Follow-up right hip fracture 04/22/17-patient seen and examined, she status post repair postop day 1. Confused But no acute event overnight. Currently afebrile. Positive for bowel movement 04/23/17-patient seen and examined, confused and agitated. Currently on 2 point restraints 04/24/17-patient seen and examined, still confused and in 2 point restraints upper extremities. Decreased urine output 04/25/17-patient seen and examined, lethargic and confused. 2 point restraint upper extremities. 04/26/17-patient seen and examined, still confused with point restraints in place 04/27/17-patient seen and examined, upper extremity restraint removed this morning. Afebrile Objective Vitals Vital Signs Date Time Temp Pulse Resp B/P (MAP) Pulse Ox O2 Delivery O2 Flow Rate FiO2 04/27/17 11:00 93 21 04/27/17 08:00 95.2 86 19 133/70 (91) 96 04/27/17 04:00 97.3 90 16 166/71 (102) 95 04/27/17 01:31 182/85 (117) 04/27/17 00:00 95.8 83 16 201/84 (123) 95 04/26/17 20:00 97.9 73 16 103/52 (69) 95 04/26/17 15:42 96.2 75 21 93/47 (62) 96 I/O 04/26/17 04/26/17 04/26/17 04/27/17 04/27/17 04/27/17 07:00 15:00 23:00 07:00 15:00 23:00 Intake Total 360 ml 250 ml 1190 ml 640 ml Output Total 400 ml 900 ml 225 ml 400 ml Balance -40 ml -650 ml 965 ml 240 ml Intake Oral 360 ml 250 ml 120 ml 120 ml IV Total 1070 ml 520 ml Output Urine Total 400 ml 900 ml 225 ml 400 ml # Bowel Movements 0 0 Result Diagram: 04/26/17 0643 Objective Remarks GENERAL: NAD SKIN: Warm and dry. HEAD: Normocephalic. EYES: No scleral icterus. No injection or drainage. NECK: Supple, trachea midline. No JVD or lymphadenopathy. CARDIOVASCULAR: Regular rate and rhythm without murmurs, gallops, or rubs. RESPIRATORY: Breath sounds equal bilaterally. No accessory muscle use. GASTROINTESTINAL: Abdomen soft, non-tender, nondistended. MUSCULOSKELETAL: No cyanosis, or edema. Right hip repair-neurovascular intact BACK: Nontender without obvious deformity. No CVA tenderness. Procedures Right hip intramedullary chino fixation 04/21/17 A/P Problem List: (1) Fracture, femur ICD Code: S72.90XA - Unspecified fracture of unspecified femur, initial encounter for closed fracture Status: Acute Permanent Comment: Bilateral Last Edited By: Brandy Arnold on Apr 21, 2017 10: 16 (2) HLD (hyperlipidemia) ICD Code: E78.5 - Hyperlipidemia, unspecified (3) HTN (hypertension) ICD Code: I10 - HTN (hypertension) Status: Chronic (4) Anemia ICD Code: D64.9 - Anemia, unspecified Status: Acute (5) Coronary artery disease ICD Code: I25.10 - Atherosclerotic heart disease of [place] coronary artery without angina pectoris Status: Acute (6) PVD (peripheral vascular disease) ICD Code: I73.9 - PVD (peripheral vascular disease) Status: Acute (7) Toxic metabolic encephalopathy ICD Code: G92 - Toxic encephalopathy Assessment and Plan 86-year-old female with Traumatic fall Multiple fractures noted including trochanteric region of the right proximal femur, nondisplaced impaction fracture through the neck of proximal left femur. Status post Right hip intramedullary chino fixation 04/21/17 Management per orthopedic surgery Continue current care PT to treat and eval Lovenox for DVT, patient would not be needed oral anticoagulation on discharge per orthopedic surgery HTN Continue with metoprolol tartrate 12.5 mg BID, Depression Continue Mirtazapine 7.5 mg at bedtime COPD No exacerbation On Symbicort, DuoNeb when necessary GERD - Continue Nexium Encephalopathy Altered mental status change Likely secondary to anesthesia and now improving Restrains were normal today however patient needs to be off restrains 24 hours prior to discharge Avoid sedation Urinary retention Continue with Shell FEN: Continue gentle IV fluid hydration DVT prophylaxis: Lovenox Problem Qualifiers (1) Fracture, femur: Colten Nelson MD Apr 27, 2017 13:55
[2017-04-27] MEDS: MIRTAZAPINE 15 MG TAB PO SCH (20:20)
[2017-04-28 03:55] VITALS: BP 195/84; PULSE 77; RESP 18; TEMP 97.2; O2SAT 92
[2017-04-28] MEDS: ACETAMINOPHEN/HYDROcodone 325 MG/5 MG TAB PO PRN ×2 (05:16→12:35)
[2017-04-28] MEDS: hydrALAZINE HCL 25 MG TAB PO PRN (05:16)
[2017-04-28] MEDS: DOCUSATE SODIUM 50 MG/SENNA 8.6 MG TAB PO SCH (09:00)
[2017-04-28] MEDS: BUDESONIDE-FORMOTEROL 160/4.5 MCG INHALER INH SCH (09:00)
[2017-04-28] MEDS: FERROUS SULFATE 325 MG (65 MG ELEMENTAL IRON) TAB PO SCH (09:00)
[2017-04-28] MEDS: MULTIVITAMINS/MINERALS THERAPEUTIC TAB PO SCH (09:00)
[2017-04-28] MEDS: SODIUM CHLORIDE 0.9% FLUSH 10 ML FLUSH IV FLUSH SCH (09:00)
[2017-04-28] MEDS: METOPROLOL TARTRATE 25 MG TAB PO SCH (10:27)
--- NOTE | 2017-04-28 10:28 | HHI.PR ---
Subjective Remarks Follow-up right hip fracture 04/22/17-patient seen and examined, she status post repair postop day 1. Confused But no acute event overnight. Currently afebrile. Positive for bowel movement 04/23/17-patient seen and examined, confused and agitated. Currently on 2 point restraints 04/24/17-patient seen and examined, still confused and in 2 point restraints upper extremities. Decreased urine output 04/25/17-patient seen and examined, lethargic and confused. 2 point restraint upper extremities. 04/26/17-patient seen and examined, still confused with point restraints in place 04/27/17-patient seen and examined, upper extremity restraint removed this morning. Afebrile 04/28/17-patient seen and examined, she's been off upper extremity restraints 24 hours. Pleasantly confused however no acute event overnight. Case discussed with patient's PCP. Objective Vitals Vital Signs Date Time Temp Pulse Resp B/P (MAP) Pulse Ox O2 Delivery O2 Flow Rate FiO2 04/28/17 03:55 97.2 77 18 195/84 (121) 92 04/27/17 23:45 96.7 67 18 187/83 (117) 93 04/27/17 19:40 97.5 82 18 181/71 (107) 93 04/27/17 19:30 21 04/27/17 16:00 95.5 82 19 114/57 (76) 96 04/27/17 12:00 95.3 96 18 102/45 (64) 96 04/27/17 11:00 93 21 I/O 04/27/17 04/27/17 04/27/17 04/28/17 04/28/17 04/28/17 07:00 15:00 23:00 07:00 15:00 23:00 Intake Total 640 ml 120 ml 1060 ml Output Total 400 ml 625 ml 200 ml Balance 240 ml -625 ml -80 ml 1060 ml Intake Oral 120 ml 120 ml 60 ml IV Total 520 ml 1000 ml Output Urine Total 400 ml 625 ml 200 ml # Voids 0 # Bowel Movements 0 0 0 Result Diagram: 04/26/17 0643 Imaging Last Impressions Chest X-Ray 04/22/17 0000 Signed Impressions: Service Date/Time: Saturday, April 22, 2017 23:21 - CONCLUSION: No acute disease. No significant change has occurred. Bhargav Kingston MD Hip X-Ray 04/21/17 0810 Signed Impressions: Service Date/Time: Friday, April 21, 2017 07:49 - CONCLUSION: Oblique nondisplaced fracture through the trochanteric region of the proximal right femur. Tj Vasquez MD Pelvis X-Ray 04/21/17 0733 Signed Impressions: Service Date/Time: Friday, April 21, 2017 07:48 - CONCLUSION: 1. There appears to be a nondisplaced impaction fracture through the neck of the proximal left femur. 2. There is an oblique nondisplaced fracture through the trochanteric region of the proximal right femur. Tj Vasquez MD Knee X-Ray 04/21/1733 Signed Impressions: Service Date/Time: Friday, April 21, 2017 07:49 - CONCLUSION: 1. No acute fracture joint dislocation. 2. Calcific tendinitis of the quadriceps tendon. 3. PVD Tj Vasquez MD Femur X-Ray 04/21/1733 Signed Impressions: Service Date/Time: Friday, April 21, 2017 07:49 - CONCLUSION: There is an oblique nondisplaced fracture through the trochanteric region of the proximal right femur. Tj Vasquez MD Objective Remarks GENERAL: NAD SKIN: Warm and dry. HEAD: Normocephalic. EYES: No scleral icterus. No injection or drainage. NECK: Supple, trachea midline. No JVD or lymphadenopathy. CARDIOVASCULAR: Regular rate and rhythm without murmurs, gallops, or rubs. RESPIRATORY: Breath sounds equal bilaterally. No accessory muscle use. GASTROINTESTINAL: Abdomen soft, non-tender, nondistended. MUSCULOSKELETAL: No cyanosis, or edema. Right hip repair-neurovascular intact BACK: Nontender without obvious deformity. No CVA tenderness. Procedures Right hip intramedullary chino fixation 04/21/17 A/P Problem List: (1) Fracture, femur ICD Code: S72.90XA - Unspecified fracture of unspecified femur, initial encounter for closed fracture Status: Acute Permanent Comment: Bilateral Last Edited By: Brandy Arnold on Apr 21, 2017 10: 16 (2) HLD (hyperlipidemia) ICD Code: E78.5 - Hyperlipidemia, unspecified (3) HTN (hypertension) ICD Code: I10 - HTN (hypertension) Status: Chronic (4) Anemia ICD Code: D64.9 - Anemia, unspecified Status: Acute (5) Coronary artery disease ICD Code: I25.10 - Atherosclerotic heart disease of [place] coronary artery without angina pectoris Status: Acute (6) PVD (peripheral vascular disease) ICD Code: I73.9 - PVD (peripheral vascular disease) Status: Acute (7) Toxic metabolic encephalopathy ICD Code: G92 - Toxic encephalopathy Assessment and Plan 86-year-old female with Traumatic fall Multiple fractures noted including trochanteric region of the right proximal femur, nondisplaced impaction fracture through the neck of proximal left femur. Status post Right hip intramedullary chino fixation 04/21/17 Management per orthopedic surgery Continue current care PT to treat and eval Lovenox for DVT, patient would not be needed oral anticoagulation on discharge per orthopedic surgery HTN Continue with metoprolol tartrate 12.5 mg BID, Depression Continue Mirtazapine 7.5 mg at bedtime COPD No exacerbation On Symbicort, DuoNeb when necessary GERD - Continue Nexium Encephalopathy Altered mental status change Likely secondary to anesthesia and now improved Patient's been off restraints 24 hours Avoid sedation Urinary retention Continue with Shell DVT prophylaxis: Lovenox Problem Qualifiers (1) Fracture, femur: Colten Nelson MD Apr 28, 2017 10:27
--- NOTE | 2017-04-28 10:35 | HHI.DS ---
Discharge Summary Admission Date Apr 21, 2017 at 10:52 Discharge Date: Apr 28, 2017 Admitting Diagnosis (1) Fracture, femur ICD Code: S72.90XA - Unspecified fracture of unspecified femur, initial encounter for closed fracture Status: Acute (2) HLD (hyperlipidemia) ICD Code: E78.5 - Hyperlipidemia, unspecified (3) HTN (hypertension) ICD Code: I10 - HTN (hypertension) Status: Chronic (4) Anemia ICD Code: D64.9 - Anemia, unspecified Status: Acute (5) Coronary artery disease ICD Code: I25.10 - Atherosclerotic heart disease of [place] coronary artery without angina pectoris Status: Acute (6) PVD (peripheral vascular disease) ICD Code: I73.9 - PVD (peripheral vascular disease) Status: Acute (7) Toxic metabolic encephalopathy ICD Code: G92 - Toxic encephalopathy Procedures Right hip intramedullary chino fixation 04/21/17 Brief History - From Admission 86 yo female presented after mechanical fall. This HPI is obtained from the ED physician and EMR. History is limited because the patient has demetia. Apparently her daughter was at bedside, but then left the hospital. Her medical history is significant for COPD, hyperlipidemia, HTN, and dementia. Apparently the patient suffered a mechanical fall yesterday. The situation surrounding the fall is unclear. The patient does not remember falling. She does endorse some pain of the right hip. Otherwise the patient is without complaints or concerns when seen and evaluated. She is a patient of Dr. Nguyen. CBC/BMP: 04/26/17 0643 Significant Findings Laboratory Tests Test 04/26/17 06:43 Potassium Level 3.2 MEQ/L (3.5-5.1) Estimat Glomerular Filtration Rate 79 ML/MIN (>89) Imaging Last Impressions Chest X-Ray 04/22/17 0000 Signed Impressions: Service Date/Time: Saturday, April 22, 2017 23:21 - CONCLUSION: No acute disease. No significant change has occurred. Bhargav Kingston MD Hip X-Ray 04/21/17 0810 Signed Impressions: Service Date/Time: Friday, April 21, 2017 07:49 - CONCLUSION: Oblique nondisplaced fracture through the trochanteric region of the proximal right femur. Tj Vasquez MD Pelvis X-Ray 04/21/17732 Signed Impressions: Service Date/Time: Friday, April 21, 2017 07:48 - CONCLUSION: 1. There appears to be a nondisplaced impaction fracture through the neck of the proximal left femur. 2. There is an oblique nondisplaced fracture through the trochanteric region of the proximal right femur. Tj Vasquez MD Knee X-Ray 04/21/17732 Signed Impressions: Service Date/Time: Friday, April 21, 2017 07:49 - CONCLUSION: 1. No acute fracture joint dislocation. 2. Calcific tendinitis of the quadriceps tendon. 3. PVD Tj Vasquez MD Femur X-Ray 04/21/17732 Signed Impressions: Service Date/Time: Friday, April 21, 2017 07:49 - CONCLUSION: There is an oblique nondisplaced fracture through the trochanteric region of the proximal right femur. Tj Vasquez MD PE at Discharge GENERAL: NAD SKIN: Warm and dry. HEAD: Normocephalic. EYES: No scleral icterus. No injection or drainage. NECK: Supple, trachea midline. No JVD or lymphadenopathy. CARDIOVASCULAR: Regular rate and rhythm without murmurs, gallops, or rubs. RESPIRATORY: Breath sounds equal bilaterally. No accessory muscle use. GASTROINTESTINAL: Abdomen soft, non-tender, nondistended. MUSCULOSKELETAL: No cyanosis, or edema. Right hip repair-neurovascular intact BACK: Nontender without obvious deformity. No CVA tenderness. Hospital Course Patient admitted secondary to multiple fractures including trochanteric region of the right proximal femur, nondisplaced impaction fracture through the neck of the proximal left failure for which orthopedic surgery was consulted and she underwent right hip intramedullary chino fixation 04/21/17. Postoperatively, PT was consulted and patient was started on Lovenox for DVT prophylaxis however hospitalization was complicated by delirium and altered mental status change secondary to anesthetic agents. Patient required upper extremity restraints. Mentation improved and 24 lactic discharge patient was off restraints. Patient was continued on his treatment for other chronic medical conditions including hypertension. Pt Condition on Discharge: Fair Discharge Disposition: Discharge to SNF Discharge Time: > 30 minutes Discharge Instructions DIET: Follow Instructions for: Heart Healthy Diet Activities you can perform: Regular-No Restrictions Follow up Referrals: Orthopedics - 2 Weeks [facility] with Jai Thurman Jr., MD PCP Follow-up - 2-3 Days New Medications: Hydrocodone-Acetaminophen ([place]) 5-325 mg Tab 1 TAB PO Q4H PRN for PAIN, #60 TAB 0 Refills Continued Medications: Budesonide-Formoterol Inh (Symbicort Inh) 160-4.5 Mcg/Act Aero 2 PUFF INH Q12HR, #1 INHALER 0 Refills Calcium Carbonate (Antacid) (Tums) 500 Mg Chew 500 MG CHEW PRN for HEARTBURN, TAB 0 Refills Coenzyme Q10 (Ubidecarenone) (Coq-10) 50 Mg Cap 100 MG PO DAILY Esomeprazole DR (Nexium) 20 Mg Capdr 20 MG PO DAILY PRN for REFLUX, CAP 0 Refills Ferrous Sulfate (Iron) 325 Mg Cap 325 MG PO DAILY for Nutritional Supplement, #30 TAB 0 Refills Lactobacillus Acidophilus (Probiotic) 10 Billion Cell Cap 1 CAP PO DAILYAC for Nutritional Supplement, #90 CAP 0 Refills Metoprolol Tartrate (Metoprolol Tartrate) 25 Mg Tab 12.5 MG PO BID, #30 TAB 0 Refills Mirtazapine (Mirtazapine) 7.5 Mg Tab 7.5 MG PO HS for Depression Control, #30 TAB 0 Refills Nitroglycerin SL (Nitroglycerin SL) 0.4 Mg Subl 0.4 MG SL DIRECTED PRN for CHEST PAIN, #100 TAB.SL 0 Refills ONE TABLET UNDER THE TONGUE NEEDED FOR CHEST PAIN, MAY REPEAT EVERY FIVE MINUTES FOR A TOTAL OF 3 DOSES OR CALL 911 IF NO RELIEF Potassium Chloride ER (Klor-Con 10) 10 Meq Tab 10 MEQ PO BID for Electrolyte Replacement, #60 TAB 0 Refills Discontinued Medications: Loperamide HCl (Imodium A-D) 1 Mg/7.5 Ml Liquid 1 MG PO DAILY Loperamide HCl (Loperamide) 2 Mg Tablet 1 MG PO PRN for DIARRHEA Melatonin (Melatonin) 10 Mg-1 Mg Tab 20 MG PO HS PRN for SLEEP, TAB 0 Refills Colten Nelson MD Apr 28, 2017 10:35
[2017-04-28] MEDS: SODIUM CHLOR 0.9% 1000 ML INJ 1,000 ML IV SCH (10:39)
[2017-04-28] MEDS ORDERED: XARE10TA PO (11:25)
[2017-04-28] MEDS: ENOXAPARIN SODIUM 30 MG/0.3 ML SYRINGE SQ SCH (11:55)
== END 2017-04-28 12:56 | DRG 480 ==
LOC: NEPE 06:53 → NEDA 10:52 → N06A 16:12
PROVIDERS: ADMIT Hospitalist; ATTEND Hospitalist
PROC: 0QS606Z Reposition Right Upper Femur with Intramedullary Internal Fixation Device, Open Approach (ICD-10-PCS; principal; 2017-04-21 11:54)
DX: S72.144A Nondisplaced intertrochanteric fracture of right femur, initial encounter for closed fracture (principal); G92 Toxic encephalopathy; J44.9 Chronic obstructive pulmonary disease, unspecified; Z78.1 Physical restraint status; F03.90 Unspecified dementia, unspecified severity, without behavioral disturbance, psychotic disturbance, mood disturbance, and anxiety; D64.9 Anemia, unspecified; I73.9 Peripheral vascular disease, unspecified; E78.5 Hyperlipidemia, unspecified; I25.10 Atherosclerotic heart disease of native coronary artery without angina pectoris; F32.9 Major depressive disorder, single episode, unspecified; I10 Essential (primary) hypertension; K21.9 Gastro-esophageal reflux disease without esophagitis; R33.9 Retention of urine, unspecified; T41.3X5A Adverse effect of local anesthetics, initial encounter; W19.XXXA Unspecified fall, initial encounter; Y92.009 Unspecified place in unspecified non-institutional (private) residence as the place of occurrence of the external cause; Z95.5 Presence of coronary angioplasty implant and graft; Z88.5 Allergy status to narcotic agent; Z88.0 Allergy status to penicillin; Z88.2 Allergy status to sulfonamides; Z88.8 Allergy status to other drugs, medicaments and biological substances; Z86.73 Personal history of transient ischemic attack (TIA), and cerebral infarction without residual deficits
CPT/HCPCS: 36600; 71010; 72170; 73502; 73552; 73560; 76000; 80048; 80053; 82805; 85025; 85610; 85730; 86850; 86900; 86901; 93005; 94150; 99285; C1713; J0360; J1100; J1580; J1630; J1650; J2270; J2310; J2405; J3010; J3370; J7030; J7040; J7050

== ENCOUNTER 2017-05-30 11:07 | Observation (INO) | payer MEDICARE, BC ==
[~2017-05-30] VITALS: Ht 157.5 cm; Wt 37.8 kg
[~2017-05-30 11:07] MED LIST changes: +KLOR10TA PO; -LOPE1LIQ13 PO; +NEXI20CA PO; +NORC5TAB PO; -POTA-243 PO; +TUMS500C CHEW; +XARE10TA PO
[2017-05-30 11:18] VITALS: BP 165/62; PULSE 73; RESP 20; TEMP 97.8; O2SAT 92
[2017-05-30 11:30] VITALS: O2SAT 92
[2017-05-30] MEDS ORDERED: SODIUM CHLORIDE 0.9% FLUSH 10 ML FLUSH IV FLUSH PRN ×2 (11:30→14:45)
--- NOTE | 2017-05-30 11:33 | PD ---
HPI Chief Complaint: Abdominal Pain Time Seen by Provider: 11:16 Travel History International Travel<30 days: No Contact w/Intl Traveler<30days: No Traveled to known affect area: No History of Present Illness HPI C/O ABDOMINAL PAIN, DIFFUSE, NONRAD, SOME N/V, NO BM IN 3 DAYS PER EMS REPORT GIVEN BY HISTORY, WAS RELEASED FROM A REHAB ABOUT 5 DAYS AGO PER FAMILY CHART AND RN NOTES REVIEWED ALL:MULTIPLE AND REVIEWED RECENT RIGHT FEMUR FRACTURE SURGICALLY REPAIRED AND AT REHAB FOR (RECENTLY D/C) , PVD, ANEMIA, HTN, HYPERLIPIDEMIA, DEMENTIA, COPD, SBO PCP: Dr. Nguyen. [facility] Past Medical History AAA: Yes Arthritis: Yes Autoimmune Disease: No Blood Disorders: No Anxiety: Yes Depression: No Heart Rhythm Problems: No Cancer: No Cardiac Catheterization: Yes Cardiovascular Problems: Yes High Cholesterol: Yes Chest Pain: Yes Congestive Heart Failure: Yes COPD: Yes Cerebrovascular Accident: Yes Coronary Artery Disease: Yes Diabetes: No Diminished Hearing: No Endocrine: No GERD: Yes Genitourinary: No Headaches: No Hepatitis: No Hiatal Hernia: No Heparin Induced Thrombocytopen: No Hypertension: Yes Immune Disorder: No Implanted Vascular Access Dvce: No Kidney Stones: No Musculoskeletal: Yes (ARTHRITIS) Neurologic: No Psychiatric: No Reproductive: No Respiratory: Yes (copd) Immunizations Current: Yes Migraines: No Myocardial Infarction: Yes Pancreatitis: Yes Renal Failure: No Seizures: No Sleep Apnea: No Thyroid Disease: No Ulcer: No Menopausal: Yes : 4 Para: 3 Miscarriage: 1 Past Surgical History Abdominal Surgery: Yes AICD: No Arteriovenous Shunt: No Body Medical Devices: CARDIAC STENT, ANEURYSM CLIP Cardiac Surgery: Yes (CARDIAC STENT 1973) Cholecystectomy: Yes Coronary Artery Bypass Graft: No Coronary Stent: Yes Ear Surgery: No Endocrine Surgery: No Eye Surgery: Yes (RIGHT OPTIC NERVE CLIP) Genitourinary Surgery: No Gynecologic Surgery: No Insulin Pump: No Joint Replacement: No Neurologic Surgery: Yes (R TEMPORAL ANEURYSM REPAIR.) Oral Surgery: No Pacemaker: No Thoracic Surgery: No Other Surgery: Yes (LEFT CAROTID ENDARTARECTOMY, femoral vascular bypass surgery) Social History Alcohol Use: No Tobacco Use: No Substance Use: No Allergies-Medications (Allergen,Severity, Reaction): Coded Allergies: Sulfa (Sulfonamide Antibiotics) (Unverified Allergy, Severe, Rash, ) penicillin G (Unverified Allergy, Severe, Swelling, 04/21/17) phenytoin (Unverified Allergy, Severe, Rash, 04/21/17) MRI PRECAUTION (Verified Adverse Reaction, Severe, ANEURYSM CLIP CX PER S MILES ADB, 04/21/17) acetaminophen (Unverified Adverse Reaction, Severe, Hallucinations, ) diazepam (Unverified Adverse Reaction, Severe, HALLUCINATIONS, 04/21/17) oxycodone (Unverified Adverse Reaction, Severe, Hallucinations, 04/21/17) aspirin (Unverified Adverse Reaction, Intermediate, Bleeding, 04/21/17) PT STATES IT IS "FULL STRENGTH ASA",BABY ASA OK. FULL STRENGTH GIVES HER A NOSE BLEED Reported Meds & Prescriptions Reported Meds & Active Scripts Active [place] (Hydrocodone-Acetaminophen) 5-325 mg Tab 1 Tab PO Q4H PRN Reported Trazodone (Trazodone HCl) 50 Mg Tab 50 Mg PO HS Tums (Calcium Carbonate (Antacid)) 500 Mg Chew 500 Mg CHEW PRN Nexium (Esomeprazole DR) 20 Mg Capdr 20 Mg PO DAILY PRN Nitroglycerin SL (Nitroglycerin) 0.4 Mg Subl 0.4 Mg SL DIRECTED PRN ONE TABLET UNDER THE TONGUE NEEDED FOR CHEST PAIN, MAY REPEAT EVERY FIVE MINUTES FOR A TOTAL OF 3 DOSES OR CALL 911 IF NO RELIEF Symbicort Inh (Budesonide/Formoterol Fumarate) 160-4.5 Mcg/Act Aero 2 Puff INH Q12HR Mirtazapine 7.5 Mg Tab 15 Mg PO HS Klor-Con 10 (Potassium Chloride) 10 Meq Tab 10 Meq PO BID Metoprolol Tartrate 25 Mg Tab 12.5 Mg PO BID Review of Systems Except as stated in HPI: all other systems reviewed are Neg General / Constitutional: No: Fever Eyes: No: Visual changes HENT: No: Headaches Cardiovascular: No: Chest Pain or Discomfort Respiratory: No: Shortness of Breath Gastrointestinal: Positive: Abdominal Pain Genitourinary: No: Dysuria Musculoskeletal: No: Pain Skin: No Rash Neurologic: No: Weakness Psychiatric: No: Depression Endocrine: No: Polydipsia Hematologic/Lymphatic: No: Easy Bruising Physical Exam Narrative GENERAL: SKIN: Warm and dry. HEAD: Atraumatic. Normocephalic. EYES: Pupils equal and round. No scleral icterus. No injection or drainage. ENT: No nasal bleeding or discharge. Mucous membranes pink and moist. NECK: Trachea midline. No JVD. CARDIOVASCULAR: Regular rate and rhythm. RESPIRATORY: No accessory muscle use. Clear to auscultation. Breath sounds equal bilaterally. GASTROINTESTINAL: Abdomen soft, non-tender, nondistended. HYPOACTIVE BOWEL SOUNDS MUSCULOSKELETAL: Extremities without clubbing, cyanosis, or edema. No obvious deformities. NEUROLOGICAL: Awake and alert. No obvious cranial nerve deficits. Motor grossly within normal limits. Five out of 5 muscle strength in the arms and legs. Normal speech. PSYCHIATRIC: Appropriate mood and affect; insight and judgment normal. Data Data Last Documented VS Vital Signs Date Time Temp Pulse Resp B/P (MAP) Pulse Ox O2 Delivery O2 Flow Rate FiO2 05/30/17 13:17 72 20 144/103 (117) 96 Nasal Cannula 2.00 05/30/17 11:18 97.8 Orders Orders Complete Blood Count With Diff (05/30/17 11:30) Comprehensive Metabolic Panel (05/30/17 11:30) Lipase (05/30/17 11:30) Urinalysis - C+S If Indicated (05/30/17 11:30) Ct Abd/Pel W Iv Contrast(Rout) (05/30/17 11:30) Iv Access Insert/Monitor (05/30/17 11:30) Ecg Monitoring (05/30/17 11:30) Oximetry (05/30/17 11:30) NPO (05/30/17 11:30) Sodium Chloride 0.9% Flush (Ns Flush) (05/30/17 11:30) Electrocardiogram (05/30/17 11:30) Sodium Chlor 0.9% 1000 Ml Inj (Ns 1000 M (05/30/17 12:45) Iohexol 350 Inj (Omnipaque 350 Inj) (05/30/17 13:46) Admit Order (Ed Use Only) (05/30/17 14:23) Labs Laboratory Tests Test 05/30/17 12:30 05/30/17 12:50 05/30/17 14:00 White Blood Count 8.9 TH/MM3 Red Blood Count 4.35 MIL/MM3 Hemoglobin 11.8 GM/DL Hematocrit 36.8 % Mean Corpuscular Volume 84.6 FL Mean Corpuscular Hemoglobin 27.2 PG Mean Corpuscular Hemoglobin Concent 32.2 % Red Cell Distribution Width 16.7 % Platelet Count 426 TH/MM3 Mean Platelet Volume 7.3 FL Neutrophils (%) (Auto) 81.0 % Lymphocytes (%) (Auto) 11.2 % Monocytes (%) (Auto) 4.0 % Eosinophils (%) (Auto) 0.1 % Basophils (%) (Auto) 3.7 % Neutrophils # (Auto) 7.2 TH/MM3 Lymphocytes # (Auto) 1.0 TH/MM3 Monocytes # (Auto) 0.4 TH/MM3 Eosinophils # (Auto) 0.0 TH/MM3 Basophils # (Auto) 0.3 TH/MM3 CBC Comment DIFF FINAL Differential Comment Blood Urea Nitrogen 13 MG/DL Creatinine 0.85 MG/DL Random Glucose 105 MG/DL Total Protein 6.2 GM/DL Albumin 2.1 GM/DL Calcium Level 9.1 MG/DL Alkaline Phosphatase 121 U/L Aspartate Amino Transf (AST/SGOT) 20 U/L Alanine Aminotransferase (ALT/SGPT) 19 U/L Total Bilirubin 0.6 MG/DL Sodium Level 137 MEQ/L Potassium Level 4.3 MEQ/L Chloride Level 103 MEQ/L Carbon Dioxide Level 27.5 MEQ/L Anion Gap 7 MEQ/L Estimat Glomerular Filtration Rate 63 ML/MIN Lipase 80 U/L Urine pH 5.0 Urine Protein NEG mg/dL Urine Glucose (UA) NEG mg/dL Urine Ketones NEG mg/dL Urine Occult Blood SMALL Urine Nitrite POS Urine Bilirubin NEG Urine Leukocyte Esterase TRACE MDM Medical Decision Making Medical Screen Exam Complete: Yes Emergency Medical Condition: Yes Medical Record Reviewed: Yes Interpretation(s) NSR WITH PAC'S, 70, LVH, NO STEMI PATTERN CONSIDER REVERSAL OF LEADS THOUGH DUE TO UPRIGHT P WAVE ON AVR AND INVERSE P WAVE ON OTHER LEADS Differential Diagnosis SBO V COLITIS V DIVERTIC V CONSTIPATION V ILEUS Narrative Course CBC AND CMP WERE WNL, PATIENT IS CLINICALLY DRY REQUIRING IVF, AND CT FINDINGS C /W PARTIAL SBO VS ILEUS, WILL ADMIT TO HOSPITALIST. Diagnosis Primary Impression: ILEUS Admitting Information Admitting Physician Requests: Observation Tim Interiano MD May 30, 2017 11:33
[2017-05-30] MEDS ORDERED: TRAZ50TA12 PO (11:43)
[2017-05-30 12:35] LABS: AUTOMATED NEUTROPHIL # 7.2 TH/MM3 (1.8-7.7); BASOPHIL # 0.3 TH/MM3 (0-0.2); BASOPHIL % 3.7 % (0.0-2.0); EOSINOPHIL % 0.1 % (0.0-4.0); HEMATOCRIT 36.8 % (35.0-46.0); LYMPH % 11.2 % (9.0-44.0); MEAN CELL VOLUME 84.6 FL (80.0-100.0); MEAN CORPUSCULAR HEMOGLOBIN 27.2 PG (27.0-34.0); MEAN CORPUSCULAR HGB CONC 32.2 % (32.0-36.0); PLATELET COUNT 426 TH/MM3 (150-450); RED BLOOD COUNT 4.35 MIL/MM3 (4.00-5.30); RED CELL DISTRIBUTION WIDTH 16.7 % (11.6-17.2); WHITE BLOOD COUNT 8.9 TH/MM3 (4.0-11.0)
[2017-05-30 12:40] LABS: HEMO FLAGS DIFF FINAL
[2017-05-30] MEDS ORDERED: SODIUM CHLOR 0.9% 1000 ML INJ 1,000 ML IV ONE (12:45)
[2017-05-30 13:08] LABS: CHLORIDE 103 MEQ/L (98-107); POTASSIUM 4.3 MEQ/L (3.5-5.1); SODIUM (NA) 137 MEQ/L (136-145)
[2017-05-30 13:12] LABS: ANION GAP 7 MEQ/L (5-15); BICARBONATE 27.5 MEQ/L (21.0-32.0); BLOOD UREA NITROGEN 13 MG/DL (7-18)
[2017-05-30 13:14] LABS: ALT (GPT) 19 U/L (10-53); AST (GOT) 20 U/L (15-37)
[2017-05-30 13:15] LABS: GLOMERULAR FILTRATION RATE 63 ML/MIN (>89)
[2017-05-30 13:16] LABS: TOTAL BILIRUBIN ADULT 0.6 MG/DL (0.2-1.0)
[2017-05-30 13:17] VITALS: BP 144/103; PULSE 72; RESP 20; O2SAT 96
[2017-05-30 13:17] LABS: ALKALINE PHOSPHATASE 121 U/L (45-117)
[2017-05-30] MEDS ORDERED: IOHEXOL 350 MG/ML 10 ML VIAL (for RAD DIAG) IVCONTRAST ONE (13:46)
--- NOTE | 2017-05-30 14:10 | RADRPT ---
EXAM DATE/TIME: 05/30/2017 13:30 [facility] COMPARISON: CT ABDOMEN & PELVIS W CONTRAST, August 06, 2016, 21:23. INDICATIONS : Abdominal pain. IV CONTRAST: 67 cc Omnipaque 350 (iohexol) IV ORAL CONTRAST: No oral contrast ingested. RADIATION DOSE: 5.20 CTDIvol (mGy) MEDICAL HISTORY : Aneurysm, abdominal. Cerebrovascular disease. Hypertension. SURGICAL HISTORY : Cholecystectomy. ENCOUNTER: Initial ACUITY: 1 day PAIN SCALE: 3/10 LOCATION: Bilateral abdomen TECHNIQUE: Volumetric scanning of the abdomen and pelvis was performed. Using automated exposure control and ad justment of the mA and/or kV according to patient size, radiation dose was kept as low as reasonably achievable to obtain optimal diagnostic quality images. DICOM format image data is available electro nically for review and comparison. FINDINGS: Some mild patchy infiltrate seen in the right costophrenic angle. Stable hiatus hernia. Prior CT scan had demonstrated mild dilation of the intra-and extrahepatic biliary system. On today' s examination, there has been an increase in the amount of distention of the extrahepatic biliary sys tem with common bile duct measuring 2 cm (previously measured 1.4 cm. The severity of the intrahepat ic biliary dilatation has also increased. Stable configuration of the abdominal aortic aneurysm, measuring 5.1 x 4.1 cm in the infrarenal regio n. There are diffuse mildly distended loops of small bowel which measure up to 3.1 cm. Several air-flui d levels are present. There is diffuse upper abdominal ascites tracking down both paracolic gutters, but only a minimal fiona unt of free fluid in the dependent pelvis. The ascites is a new finding from prior exam. There is m arked distention of the urinary bladder. The kidneys and spleen are intact. There is dilation of the pancreatic duct out to the tail which is slightly more prominent than on prior CT. CONCLUSION: 1. Interval increase in the dilation of the intra-and extrahepatic biliary duct and with mild increas e in the diameter of the pancreatic duct. The common bile duct measures up to 2 cm in dimension. 2. Stable 5 cm infrarenal abdominal aortic aneurysm. 3. Mildly distended loops of small bowel with air-fluid levels. 4. Interval development of diffuse abdominal pelvic ascites. Jose Miranda MD on May 30, 2017 at 13:55 Board Certified Radiologist. This report was verified electronically.
[2017-05-30 14:24] LABS: BLOOD, URINE SMALL (NEG); GLUCOSE,URINE NEG (NEG); KETONE, URINE NEG (NEG); NITRITE,URINE POS (NEG)
[2017-05-30 14:29] LABS: METHOD OF COLLECTION CLEAN CATCH; URINE COLOR YELLOW (YELLW/STRAW)
--- NOTE | 2017-05-30 14:33 | HHI.HP ---
HPI Service [facility] Primary Care Physician Calli Nguyen MD Admission Diagnosis ILEUS, DEHYDRATION Diagnoses: (1) Constipation (2) Ileus (3) Urinary tract infection Chief Complaint: Abdominal pain Travel History International Travel<30 Days: No Contact w/Intl Traveler <30 Da: No Traveled to Known Affected Are: No History of Present Illness 86-year-old female with a history of dementia, hyperlipidemia, was recently released from local nursing facility was brought in by her daughter for evaluation of acute onset of abdominal pain. Last bowel movement was 3 days ago , however prior to this, she has been dealing with diarrhea for which she was treated with Imodium. She had emesis this morning. CT abdomen revealed mildly distended loop of bowel. Also, patient has been having foul-smelling urine per her daughter's account. She is currently afebrile Review of Systems Except as stated in HPI: all other systems reviewed are Neg Past Family Social History Past Medical History Abdominal aortic aneurysm Arthritis Anxiety Hypertension Previous AL with stent placement High cholesterol Congestive heart failure Chronic obstructive pulmonary disease Cerebrovascular accident Coronary artery disease GERD Left temporal aneurysm Past Surgical History Laparoscopic cholecystectomy Cardiac stent placement Aneurysm clips Cholecystectomy Right optic nerve clip Left carotid endarterectomy Reported Medications Trazodone (Trazodone HCl) 50 Mg Tab 50 Mg PO HS Tums (Calcium Carbonate (Antacid)) 500 Mg Chew 500 Mg CHEW PRN Nexium (Esomeprazole DR) 20 Mg Capdr 20 Mg PO DAILY PRN Nitroglycerin SL (Nitroglycerin) 0.4 Mg Subl 0.4 Mg SL DIRECTED PRN ONE TABLET UNDER THE TONGUE NEEDED FOR CHEST PAIN, MAY REPEAT EVERY FIVE MINUTES FOR A TOTAL OF 3 DOSES OR CALL 911 IF NO RELIEF Symbicort Inh (Budesonide/Formoterol Fumarate) 160-4.5 Mcg/Act Aero 2 Puff INH Q12HR Mirtazapine 7.5 Mg Tab 15 Mg PO HS Klor-Con 10 (Potassium Chloride) 10 Meq Tab 10 Meq PO BID Metoprolol Tartrate 25 Mg Tab 12.5 Mg PO BID Allergies: Coded Allergies: Sulfa (Sulfonamide Antibiotics) (Unverified Allergy, Severe, Rash, ) penicillin G (Unverified Allergy, Severe, Swelling, 04/21/17) phenytoin (Unverified Allergy, Severe, Rash, 04/21/17) MRI PRECAUTION (Verified Adverse Reaction, Severe, ANEURYSM CLIP CX PER S MILES ADB, 04/21/17) acetaminophen (Unverified Adverse Reaction, Severe, Hallucinations, ) diazepam (Unverified Adverse Reaction, Severe, HALLUCINATIONS, 04/21/17) oxycodone (Unverified Adverse Reaction, Severe, Hallucinations, 04/21/17) aspirin (Unverified Adverse Reaction, Intermediate, Bleeding, 04/21/17) PT STATES IT IS "FULL STRENGTH ASA",BABY ASA [place]. FULL STRENGTH GIVES HER A NOSE BLEED Family History Family history significant for diabetes. Parents of old age, mother in her late 70s, father in his 90s Social History Patient lives at home with her great grandson. Denies any alcohol or illicit drug use. Patient does not use tobacco and stated she has quit since 1973. Physical Exam Vital Signs Vital Signs Date Time Temp Pulse Resp B/P (MAP) Pulse Ox O2 Delivery O2 Flow Rate FiO2 05/30/17 13:17 72 20 144/103 (117) 96 Nasal Cannula 2.00 05/30/17 11:30 92 Nasal Cannula 2.00 05/30/17 11:18 97.8 73 20 165/62 (96) 92 Physical Exam GENERAL: This is a well-nourished, well-developed patient, in no apparent distress. SKIN: No rashes, ecchymoses or lesions. Cool and dry. HEAD: Atraumatic. Normocephalic. No temporal or scalp tenderness. EYES: Pupils equal round and reactive. Extraocular motions intact. No scleral icterus. No injection or drainage. ENT: Nose without bleeding, purulent drainage or septal hematoma. Throat without erythema, tonsillar hypertrophy or exudate. Uvula midline. Airway patent. NECK: Trachea midline. No JVD or lymphadenopathy. Supple, nontender, no meningeal signs. CARDIOVASCULAR: Regular rate and rhythm without murmurs, gallops, or rubs. RESPIRATORY: Clear to auscultation. Breath sounds equal bilaterally. No wheezes , rales, or rhonchi. GASTROINTESTINAL: Abdomen soft, non-tender, nondistended. No hepato-splenomegaly , or palpable masses. No guarding. MUSCULOSKELETAL: Extremities without clubbing, cyanosis, or edema. No joint tenderness, effusion, or edema noted. No calf tenderness. Negative Homans sign bilaterally. NEUROLOGICAL: Awake and alert. Cranial nerves II through XII intact. Motor and sensory grossly within normal limits. Five out of 5 muscle strength in all muscle groups. Normal speech. Laboratory Laboratory Tests Test 05/30/17 12:30 05/30/17 12:50 05/30/17 14:00 White Blood Count 8.9 Red Blood Count 4.35 Hemoglobin 11.8 Hematocrit 36.8 Mean Corpuscular Volume 84.6 Mean Corpuscular Hemoglobin 27.2 Mean Corpuscular Hemoglobin Concent 32.2 Red Cell Distribution Width 16.7 Platelet Count 426 Mean Platelet Volume 7.3 Neutrophils (%) (Auto) 81.0 Lymphocytes (%) (Auto) 11.2 Monocytes (%) (Auto) 4.0 Eosinophils (%) (Auto) 0.1 Basophils (%) (Auto) 3.7 Neutrophils # (Auto) 7.2 Lymphocytes # (Auto) 1.0 Monocytes # (Auto) 0.4 Eosinophils # (Auto) 0.0 Basophils # (Auto) 0.3 CBC Comment DIFF FINAL Differential Comment Blood Urea Nitrogen 13 Creatinine 0.85 Random Glucose 105 Total Protein 6.2 Albumin 2.1 Calcium Level 9.1 Alkaline Phosphatase 121 Aspartate Amino Transf (AST/SGOT) 20 Alanine Aminotransferase (ALT/SGPT) 19 Total Bilirubin 0.6 Sodium Level 137 Potassium Level 4.3 Chloride Level 103 Carbon Dioxide Level 27.5 Anion Gap 7 Estimat Glomerular Filtration Rate 63 Lipase 80 Urine pH 5.0 Urine Protein NEG Urine Glucose (UA) NEG Urine Ketones NEG Urine Occult Blood SMALL Urine Nitrite POS Urine Bilirubin NEG Urine Leukocyte Esterase TRACE Result Diagram: 05/30/17 1230 05/30/17 1250 Imaging Last Impressions Abdomen/Pelvis CT 05/30/17 1130 Signed Impressions: Service Date/Time: May 13:30 - CONCLUSION: 1. Interval increase in the dilation of the intra-and extrahepatic biliary duct and with mild increase in the diameter of the pancreatic duct. The common bile duct measures up to 2 cm in dimension. 2. Stable 5 cm infrarenal abdominal aortic aneurysm. 3. Mildly distended loops of small bowel with air-fluid levels. 4. Interval development of diffuse abdominal pelvic ascites. Jose Miranda MD Caprinmelany VTE Risk Assessment Caprini VTE Risk Assessment: Mod/High Risk (score >= 2) Caprini Risk Assessment Model Point Value = 1 Point Value = 2 Point Value = 3 Point Value = 5 Age 41-60 Minor surgery BMI > 25 kg/m2 Swollen legs Varicose veins or History of unexplained or recurrent spontaneous Oral contraceptives or hormone replacement Sepsis (< 1 month) Serious lung disease, including pneumonia (< 1 month) Abnormal pulmonary function Acute myocardial infarction Congestive heart failure (< 1 month) History of inflammatory bowel disease Medical patient at bed rest Age 61-74 Arthroscopic surgery Major open surgery (> 45 min) Laparoscopic surgery (> 45 min) Malignancy Confined to bed (> 72 hours) Immobilizing plaster cast Central venous access Age >= 75 History of VTE Family history of VTE Factor V Leiden Prothrombin [id number] Lupus anticoagulant Anticardiolipin antibodies Elevated serum homocysteine Heparin-induced thrombocytopenia Other congenital or acquired thrombophilia Stroke (< 1 month) Elective arthroplasty Hip, pelvis, or leg fracture Acute spinal cord injury (< 1 month) Prophylaxis Regimen Total Risk Factor Score Risk Level Prophylaxis Regimen 0-1 Low Early ambulation 2 Moderate Order ONE of the following: *Sequential Compression Device (SCD) *Heparin 5000 units SQ BID 3-4 Higher Order ONE of the following medications: *Heparin 5000 units SQ TID *Enoxaparin/Lovenox 40 mg SQ daily (WT < 150 kg, CrCl > 30 mL/min) *Enoxaparin/Lovenox 30 mg SQ daily (WT < 150 kg, CrCl > 10-29 mL/min) *Enoxaparin/Lovenox 30 mg SQ BID (WT < 150 kg, CrCl > 30 mL/min) AND/OR *Sequential Compression Device (SCD) 5 or more Highest Order ONE of the following medications: *Heparin 5000 units SQ TID (Preferred with Epidurals) *Enoxaparin/Lovenox 40 mg SQ daily (WT < 150 kg, CrCl > 30 mL/min) *Enoxaparin/Lovenox 30 mg SQ daily (WT < 150 kg, CrCl > 10-29 mL/min) *Enoxaparin/Lovenox 30 mg SQ BID (WT < 150 kg, CrCl > 30 mL/min) AND *Sequential Compression Device (SCD) Assessment and Plan Problem List: (1) Ileus ICD Code: K56.7 - Ileus, unspecified Status: Resolved (2) Urinary tract infection ICD Code: N39.0 - Urinary tract infection, site not specified (3) Constipation ICD Code: K59.00 - Constipation, unspecified Status: Resolved Assessment and Plan 86-year-old female with Ileus Abdominal pain CT abdomen noted and review by me with finding of mildly distended loop of small bowel with air-fluid level Check Flat and upright in a.m. Conservative treatment Treat for any constipation versus UTI Urinary tract infection UA positive for nitrate and leukocyte esterase Start Rocephin IV daily Monitor for urine culture HTN Resume metoprolol tartrate 12.5 mg BID, Depression Resume Mirtazapine 7.5 mg at bedtime COPD No exacerbation Resume Symbicort, DuoNeb when necessary GERD Resume Nexium DVT prophylaxis: Bilateral SCDs Code Status Full code Discussed Condition With Patient, daughter, ED physician Colten Nelson MD May 30, 2017 14:33
[2017-05-30 14:36] LABS: BACTERIA, URINE MANY /hpf; COMMENT (UR) CULTURE INDICATED; CULTURE IF INDICATED CULTURE INDICATED; RBC, URINE 0-3 /hpf (0-3); SQUAMOUS EPITHELIAL CELL URINE 0-5 /hpf (0-5)
[2017-05-30 14:38] VITALS: BP 194/85; PULSE 72; RESP 20; O2SAT 96
[2017-05-30] MEDS ORDERED: NALOXONE HCL 0.4 MG/ML AMP IV PUSH PRN (14:45)
[2017-05-30] MEDS ORDERED: ACETAMINOPHEN 325 MG TAB PO PRN ×2 (14:45)
[2017-05-30] MEDS ORDERED: MAGNESIUM HYDROXIDE SUSP 30 ML CUP PO PRN (14:45)
[2017-05-30] MEDS ORDERED: RESP: ALBUTEROL 2.5 MG/IPRATROPIUM 0.5 MG NEB (PRN) NEB (14:45)
[2017-05-30] MEDS ORDERED: PILL SPLITTER OTHER PRN (15:00)
[2017-05-30] MEDS ORDERED: PANTOPRAZOLE SOD 20 MG DELAYED RELEASE TAB PO PRN (15:00)
[2017-05-30 16:00] VITALS: BP 174/80; PULSE 68; RESP 20; TEMP 96.9; O2SAT 92
[2017-05-30] MEDS: CIPROFLOXACIN 400 MG PREMIX 200 ML IV SCH (16:36)
[2017-05-30] MEDS: SODIUM CHLOR 0.9% 1000 ML INJ 1,000 ML IV SCH (16:36)
[2017-05-30 20:00] VITALS: BP 165/94; PULSE 67; RESP 16; TEMP 98.2; O2SAT 95
[2017-05-30] MEDS: LACTOBACILLUS ACIDOPHILUS TAB PO SCH (21:42)
[2017-05-30] MEDS: MIRTAZAPINE 15 MG TAB PO SCH (21:42)
[2017-05-30] MEDS: SODIUM CHLORIDE 0.9% FLUSH 10 ML FLUSH IV FLUSH SCH (21:42)
[2017-05-30] MEDS: METOPROLOL TARTRATE 25 MG TAB PO SCH (21:42)
[2017-05-30] MEDS: traZODone HCL 50 MG TAB PO SCH (21:43)
[2017-05-30] MEDS: BUDESONIDE-FORMOTEROL 160/4.5 MCG INHALER INH SCH (22:08)
[2017-05-31] VITALS: BP 150/55; PULSE 70; RESP 18; TEMP 98.3; O2SAT 96
[2017-05-31] MEDS: CIPROFLOXACIN 400 MG PREMIX 200 ML IV SCH ×2 (03:16→14:08)
[2017-05-31 04:00] VITALS: BP 131/55; PULSE 70; RESP 18; TEMP 97.7; O2SAT 96
[2017-05-31] MEDS: SODIUM CHLOR 0.9% 1000 ML INJ 1,000 ML IV SCH ×2 (06:29→21:09)
[2017-05-31 06:51] LABS: AUTOMATED NEUTROPHIL # 6.9 TH/MM3 (1.8-7.7); BASOPHIL # 0.2 TH/MM3 (0-0.2); BASOPHIL % 2.4 % (0.0-2.0); EOSINOPHIL % 0.5 % (0.0-4.0); HEMATOCRIT 33.6 % (35.0-46.0); HEMO FLAGS DIFF FINAL; LYMPH % 12.6 % (9.0-44.0); LYMPHOCYTE # 1.1 TH/MM3 (1.0-4.8); MEAN CELL VOLUME 86.3 FL (80.0-100.0); MEAN CORPUSCULAR HEMOGLOBIN 27.5 PG (27.0-34.0); MEAN CORPUSCULAR HGB CONC 31.9 % (32.0-36.0); MONO % 6.5 % (0.0-8.0); PLATELET COUNT 339 TH/MM3 (150-450); RED BLOOD COUNT 3.89 MIL/MM3 (4.00-5.30); RED CELL DISTRIBUTION WIDTH 16.5 % (11.6-17.2); WHITE BLOOD COUNT 8.8 TH/MM3 (4.0-11.0)
[2017-05-31 07:02] LABS: CHLORIDE 104 MEQ/L (98-107); POTASSIUM 3.7 MEQ/L (3.5-5.1); SODIUM (NA) 138 MEQ/L (136-145)
[2017-05-31 07:22] LABS: ALKALINE PHOSPHATASE 98 U/L (45-117); ALT (GPT) 18 U/L (10-53); ANION GAP 9 MEQ/L (5-15); AST (GOT) 18 U/L (15-37); BICARBONATE 25.1 MEQ/L (21.0-32.0); BLOOD UREA NITROGEN 12 MG/DL (7-18); GLOMERULAR FILTRATION RATE 82 ML/MIN (>89); TOTAL BILIRUBIN ADULT 0.6 MG/DL (0.2-1.0)
[2017-05-31 08:00] VITALS: BP 169/77; PULSE 65; RESP 16; TEMP 97.5; O2SAT 99
[2017-05-31] MEDS: LACTOBACILLUS ACIDOPHILUS TAB PO SCH ×2 (08:48→21:13)
[2017-05-31] MEDS: BUDESONIDE-FORMOTEROL 160/4.5 MCG INHALER INH SCH ×2 (08:48→21:12)
[2017-05-31] MEDS: METOPROLOL TARTRATE 25 MG TAB PO SCH ×2 (08:49→21:14)
[2017-05-31] MEDS: SODIUM CHLORIDE 0.9% FLUSH 10 ML FLUSH IV FLUSH SCH ×2 (08:49→21:00)
[2017-05-31] MEDS: ENALAPRILAT 2.5 MG/2 ML VIAL IV PUSH PRN ×2 (08:57→16:05)
--- NOTE | 2017-05-31 11:22 | HHI.PR ---
Subjective Remarks Follow-up ileus/abdominal pain 05/31/17-patient seen and examined, stable however still complains of some mild abdominal pain. Objective Vitals Vital Signs Date Time Temp Pulse Resp B/P (MAP) Pulse Ox O2 Delivery O2 Flow Rate FiO2 05/31/17 08:00 97.5 65 16 169/77 (107) 99 05/31/17 04:00 97.7 70 18 131/55 (80) 96 05/31/17 00:00 98.3 70 18 150/55 (86) 96 05/30/17 20:00 98.2 67 16 165/94 (117) 95 05/30/17 16:00 96.9 68 20 174/80 (111) 92 05/30/17 15:34 05/30/17 14:38 72 20 194/85 (121) 96 Nasal Cannula 2.00 05/30/17 13:17 72 20 144/103 (117) 96 Nasal Cannula 2.00 05/30/17 11:30 92 Nasal Cannula 2.00 I/O 05/30/17 05/30/17 05/30/17 05/31/17 05/31/17 05/31/17 07:00 15:00 23:00 07:00 15:00 23:00 Intake Total 1000 ml 1120 ml Output Total 300 ml 600 ml Balance 1000 ml -300 ml 520 ml Intake IV Total 1000 ml 1120 ml Output Urine Total 300 ml 600 ml # Voids 1 Result Diagram: 05/31/17 0631 05/31/17 0631 Imaging Last Impressions Abdomen/Pelvis CT 05/30/17 1130 Signed Impressions: Service Date/Time: May 13:30 - CONCLUSION: 1. Interval increase in the dilation of the intra-and extrahepatic biliary duct and with mild increase in the diameter of the pancreatic duct. The common bile duct measures up to 2 cm in dimension. 2. Stable 5 cm infrarenal abdominal aortic aneurysm. 3. Mildly distended loops of small bowel with air-fluid levels. 4. Interval development of diffuse abdominal pelvic ascites. Jose Miranda MD Objective Remarks GENERAL: NAD SKIN: Warm and dry. HEAD: Normocephalic. EYES: No scleral icterus. No injection or drainage. NECK: Supple, trachea midline. No JVD or lymphadenopathy. CARDIOVASCULAR: Regular rate and rhythm without murmurs, gallops, or rubs. RESPIRATORY: Breath sounds equal bilaterally. No accessory muscle use. GASTROINTESTINAL: Abdomen soft, mildly tender, nondistended. MUSCULOSKELETAL: No cyanosis, or edema. BACK: Nontender without obvious deformity. No CVA tenderness. A/P Problem List: (1) Ileus ICD Code: K56.7 - Ileus, unspecified (2) Urinary tract infection ICD Code: N39.0 - Urinary tract infection, site not specified (3) Constipation ICD Code: K59.00 - Constipation, unspecified Assessment and Plan 86-year-old female with Ileus Abdominal pain CT abdomen with finding of mildly distended loop of small bowel with air- fluid level Check Flat and upright Conservative treatment Urinary tract infection Continue Rocephin IV daily pending urine culture HTN Continue metoprolol tartrate 12.5 mg BID, Depression Continue Mirtazapine 7.5 mg at bedtime COPD No exacerbation On Symbicort, DuoNeb when necessary GERD Continue Nexium DVT prophylaxis: Bilateral SCDs Colten Nelson MD May 31, 2017 11:22
[2017-05-31 12:00] VITALS: BP 157/64; PULSE 61; RESP 16; TEMP 96.2; O2SAT 94
--- NOTE | 2017-05-31 13:27 | EKG ---
Date Performed: 05/30/2017 Time Performed: 11:42:01 PTAGE: 86 years EKG: Sinus rhythm WITH OCCASIONAL SUPRAVENTRICULAR PREMATURE COMPLEXES MINIMAL VOLTAGE CRITERIA FOR LVH, CONSIDER NORM AL VARIANT NONSPECIFIC T-WAVE ABNORMALITY Since previous tracing, no significant change noted BORDERL INE ECG PREVIOUS TRACING : 05/30/2017 08.51.20 DOCTOR: Alexei Marin Interpretating Date/Time 05/31/2017 13:25:19
--- NOTE | 2017-05-31 14:10 | RADRPT ---
EXAM DATE/TIME: 05/31/2017 13:39 [facility] COMPARISON: ABDOMEN FLAT & UPRIGHT, August 08, 2016, 5:39. INDICATIONS : Abdominal pain. Evaluate for Ileus MEDICAL HISTORY : Aneurysm, abdominal. Cerebrovascular disease. Hypertension SURGICAL HISTORY : CholecystectomyRight hip replacement ENCOUNTER: Subsequent ACUITY: 2 days PAIN SCORE: Non-responsive. LOCATION: Abdomen FINDINGS: Supine and upright views of the abdomen were performed. The abdominal bowel gas pattern is normal. No air fluid levels are seen. No abnormal masses, calcifications, or organomegaly is seen. The visu alized lower lungs are clear. No evidence of free intraperitoneal gas. The osseous structures are u nremarkable. Clips suggest cholecystectomy. CONCLUSION: Normal examination. Unremarkable bowel gas pattern. Contrast in the bladder. Binu Paul MD on May 31, 2017 at 14:06 Board Certified Radiologist. This report was verified electronically.
[2017-05-31 16:00] VITALS: BP 167/60; PULSE 54; RESP 20; TEMP 96.9; O2SAT 94
[2017-05-31] MEDS: ONDANSETRON HCL 4 MG/2 ML VIAL IVP PRN ×2 (16:05→22:08)
[2017-05-31] MEDS ORDERED: MAGNESIUM CITRATE SOLN 300 ML BTL PO ONE (16:15)
[2017-05-31] MEDS ORDERED: DOCUSATE SODIUM 50 MG/SENNA 8.6 MG TAB PO PRN (16:15)
[2017-05-31 20:30] VITALS: BP 134/62; PULSE 65; RESP 18; TEMP 97.9; O2SAT 94
[2017-05-31] MEDS: traZODone HCL 50 MG TAB PO SCH (21:13)
[2017-05-31] MEDS: MIRTAZAPINE 15 MG TAB PO SCH (21:13)
[2017-06-01 01:18] VITALS: BP 127/65; PULSE 61; RESP 20; TEMP 98; O2SAT 91
[2017-06-01] MEDS: CIPROFLOXACIN 400 MG PREMIX 200 ML IV SCH (03:15)
[2017-06-01 08:00] VITALS: BP 136/69; PULSE 96; RESP 16; TEMP 96.8; O2SAT 92
[2017-06-01] MEDS: METOPROLOL TARTRATE 25 MG TAB PO SCH (08:47)
[2017-06-01] MEDS: LACTOBACILLUS ACIDOPHILUS TAB PO SCH (08:47)
[2017-06-01] MEDS: SODIUM CHLORIDE 0.9% FLUSH 10 ML FLUSH IV FLUSH SCH (08:47)
[2017-06-01] MEDS: BUDESONIDE-FORMOTEROL 160/4.5 MCG INHALER INH SCH (08:47)
--- NOTE | 2017-06-01 10:12 | HHI.FF ---
Face to Face Verification Diagnosis: (1) Constipation (2) Ileus (3) Toxic metabolic encephalopathy Physical Therapy Order: Evaluate and Treat, Improve ambulation, Strength and gait training Home Health Nursing Order: Medical education Nursing assessment with vital signs I have seen patient Maru Arrington on 06/01/17. My clinical findings support the need for the requested home health care services because: Deconditioned w/ increased weakness Limited ability to care for self I certify that my clinical findings support that this patient is homebound because: Unsteady gait/balance Unsafe to leave home unassisted Lorenzo Campoverde Jun 01, 2017 10:12
[2017-06-01] MEDS: SODIUM CHLOR 0.9% 1000 ML INJ 1,000 ML IV SCH (10:28)
--- NOTE | 2017-06-01 11:25 | HHI.PR ---
Subjective Remarks Follow-up ileus/abdominal pain 05/31/17-patient seen and examined, stable however still complains of some mild abdominal pain. 06/01/17-patient seen and examined, she had for bowel movements. Afebrile and no acute event overnight Objective Vitals Vital Signs Date Time Temp Pulse Resp B/P (MAP) Pulse Ox O2 Delivery O2 Flow Rate FiO2 06/01/17 08:00 96.8 96 16 136/69 (91) 92 06/01/17 04:06 06/01/17 01:18 98.0 61 20 127/65 (85) 91 05/31/17 20:30 97.9 65 18 134/62 (86) 94 05/31/17 16:00 96.9 54 20 167/60 (95) 94 05/31/17 12:00 96.2 61 16 157/64 (95) 94 I/O 05/31/17 05/31/17 05/31/17 06/01/17 06/01/17 06/01/17 07:00 15:00 23:00 07:00 15:00 23:00 Intake Total 1120 ml 789 ml 830 ml Output Total 600 ml Balance 520 ml 789 ml 830 ml Intake Oral 60 ml IV Total 1120 ml 729 ml 830 ml Output Urine Total 600 ml # Voids 1 1 # Bowel Movements 4 Result Diagram: 05/31/17 0631 05/31/17 0631 Imaging Last Impressions Abdomen X-Ray 05/31/17 0000 Signed Impressions: Service Date/Time: Wednesday, May 31, 2017 13:39 - CONCLUSION: Normal examination. Unremarkable bowel gas pattern. Contrast in the bladder. Binu Paul MD Abdomen/Pelvis CT 05/30/17 1130 Signed Impressions: Service Date/Time: May 13:30 - CONCLUSION: 1. Interval increase in the dilation of the intra-and extrahepatic biliary duct and with mild increase in the diameter of the pancreatic duct. The common bile duct measures up to 2 cm in dimension. 2. Stable 5 cm infrarenal abdominal aortic aneurysm. 3. Mildly distended loops of small bowel with air-fluid levels. 4. Interval development of diffuse abdominal pelvic ascites. Jose Miranda MD Objective Remarks GENERAL: NAD SKIN: Warm and dry. HEAD: Normocephalic. EYES: No scleral icterus. No injection or drainage. NECK: Supple, trachea midline. No JVD or lymphadenopathy. CARDIOVASCULAR: Regular rate and rhythm without murmurs, gallops, or rubs. RESPIRATORY: Breath sounds equal bilaterally. No accessory muscle use. GASTROINTESTINAL: Abdomen soft, mildly tender, nondistended. MUSCULOSKELETAL: No cyanosis, or edema. BACK: Nontender without obvious deformity. No CVA tenderness. Procedures none A/P Problem List: (1) Ileus ICD Code: K56.7 - Ileus, unspecified Status: Resolved (2) Urinary tract infection ICD Code: N39.0 - Urinary tract infection, site not specified (3) Constipation ICD Code: K59.00 - Constipation, unspecified Status: Resolved Assessment and Plan 86-year-old female with Ileus-resolved Abdominal pain CT abdomen with finding of mildly distended loop of small bowel with air- fluid level on presentation Flat and upright 05/31/17 without any evidence of ileus Conservative treatment Urinary tract infection Currently on Cipro IV daily will switch to Macrobid 100 mg by mouth twice a day 7 days HTN Continue metoprolol tartrate 12.5 mg BID, Depression Continue Mirtazapine 7.5 mg at bedtime COPD No exacerbation On Symbicort, DuoNeb when necessary GERD Continue Nexium DVT prophylaxis: Bilateral SCDs Colten Nelson MD Jun 01, 2017 11:25
--- NOTE | 2017-06-01 11:29 | HHI.FF ---
Face to Face Verification Diagnosis: (1) Ileus (2) Constipation (3) Urinary tract infection Physical Therapy Order: Evaluate and Treat Home Health Nursing Order: Signs/symptoms of disease process I have seen patient Maru Arrington on 06/01/17. My clinical findings support the need for the requested home health care services because: Deconditioned w/ increased weakness I certify that my clinical findings support that this patient is homebound because: Unsteady gait/balance Unsafe to leave home unassisted Colten Nelson MD Jun 01, 2017 11:29
--- NOTE | 2017-06-01 11:38 | HHI.DS ---
Discharge Summary Admission Date May 30, 2017 at 14:24 Discharge Date: Jun 01, 2017 Admitting Diagnosis ILEUS, DEHYDRATION (1) Ileus ICD Code: K56.7 - Ileus, unspecified Status: Resolved (2) Urinary tract infection ICD Code: N39.0 - Urinary tract infection, site not specified (3) Constipation ICD Code: K59.00 - Constipation, unspecified Status: Resolved Procedures none Brief History - From Admission 86-year-old female with a history of dementia, hyperlipidemia, was recently released from local nursing facility was brought in by her daughter for evaluation of acute onset of abdominal pain. Last bowel movement was 3 days ago , however prior to this, she has been dealing with diarrhea for which she was treated with Imodium. She had emesis this morning. CT abdomen revealed mildly distended loop of bowel. Also, patient has been having foul-smelling urine per her daughter's account. She is currently afebrile CBC/BMP: 05/31/17 0631 05/31/17 0631 Significant Findings Laboratory Tests Test 05/30/17 12:30 05/30/17 12:50 05/30/17 14:00 05/31/17 06:31 Neutrophils (%) (Auto) 81.0 % (16.0-70.0) 78.0 % (16.0-70.0) Basophils (%) (Auto) 3.7 % (0.0-2.0) 2.4 % (0.0-2.0) Basophils # (Auto) 0.3 TH/MM3 (0-0.2) Total Protein 6.2 GM/DL (6.4-8.2) 5.3 GM/DL (6.4-8.2) Albumin 2.1 GM/DL (3.4-5.0) 1.8 GM/DL (3.4-5.0) Alkaline Phosphatase 121 U/L (45-117) Estimat Glomerular Filtration Rate 63 ML/MIN (>89) 82 ML/MIN (>89) Urine Occult Blood SMALL (NEG) Urine Nitrite POS (NEG) Urine Leukocyte Esterase TRACE (NEG) Urine WBC 9-14 /hpf (0-5) Urine Bacteria MANY /hpf (NONE) Red Blood Count 3.89 MIL/MM3 (4.00-5.30) Hemoglobin 10.7 GM/DL (11.6-15.3) Hematocrit 33.6 % (35.0-46.0) Mean Corpuscular Hemoglobin Concent 31.9 % (32.0-36.0) Calcium Level 8.1 MG/DL (8.5-10.1) Imaging Last Impressions Abdomen X-Ray 05/31/17 0000 Signed Impressions: Service Date/Time: Wednesday, May 31, 2017 13:39 - CONCLUSION: Normal examination. Unremarkable bowel gas pattern. Contrast in the bladder. Binu Paul MD Abdomen/Pelvis CT 05/30/17 1130 Signed Impressions: Service Date/Time: May 13:30 - CONCLUSION: 1. Interval increase in the dilation of the intra-and extrahepatic biliary duct and with mild increase in the diameter of the pancreatic duct. The common bile duct measures up to 2 cm in dimension. 2. Stable 5 cm infrarenal abdominal aortic aneurysm. 3. Mildly distended loops of small bowel with air-fluid levels. 4. Interval development of diffuse abdominal pelvic ascites. Jose Miranda MD PE at Discharge GENERAL: NAD SKIN: Warm and dry. HEAD: Normocephalic. EYES: No scleral icterus. No injection or drainage. NECK: Supple, trachea midline. No JVD or lymphadenopathy. CARDIOVASCULAR: Regular rate and rhythm without murmurs, gallops, or rubs. RESPIRATORY: Breath sounds equal bilaterally. No accessory muscle use. GASTROINTESTINAL: Abdomen soft, mildly tender, nondistended. MUSCULOSKELETAL: No cyanosis, or edema. BACK: Nontender without obvious deformity. No CVA tenderness. Hospital Course Patient admitted secondary to abdominal pain and was found to have ileus which resolved with conservative treatment. Symptoms of diarrhea also resolved. Patient was started on IV antibiotics for UTI and switch to by mouth Macrobid 100 mg by mouth twice a day 7 days. DVT and GI prophylaxis were provided. PT was consulted. Prior to discharge, patient's condition improved and vital remained stable. Pt Condition on Discharge: Stable Discharge Disposition: Disch w/ Home Health Serv Discharge Time: > 30 minutes Discharge Instructions DIET: Follow Instructions for: Heart Healthy Diet Activities you can perform: Regular-No Restrictions New Medications: Lactobacillus Acidophilus (Acidophilus/l-Sporogenes) 35 Million Cell-25 Million Cell Tab 1 TAB PO Q12HR for Immunosuppression, #60 TAB Nitrofurantoin Monohydrate Macrocrystals (Nitrofurantoin Monohydrate Macrocrystals) 100 Mg Cap 100 MG PO BIDPC for Infection, #14 CAP Continued Medications: Budesonide-Formoterol Inh (Symbicort Inh) 160-4.5 Mcg/Act Aero 2 PUFF INH Q12HR, #1 INHALER 0 Refills Calcium Carbonate (Antacid) (Tums) 500 Mg Chew 500 MG CHEW PRN for HEARTBURN, TAB [address] (Nexium) 20 Mg Capdr 20 MG PO DAILY PRN for REFLUX, CAP 0 Refills Metoprolol Tartrate (Metoprolol Tartrate) 25 Mg Tab 12.5 MG PO BID, #30 TAB 0 Refills Mirtazapine (Mirtazapine) 7.5 Mg Tab 15 MG PO HS for Depression Control, #30 TAB 0 Refills Nitroglycerin SL (Nitroglycerin SL) 0.4 Mg Subl 0.4 MG SL DIRECTED PRN for CHEST PAIN, #100 TAB.SL 0 Refills ONE TABLET UNDER THE TONGUE NEEDED FOR CHEST PAIN, MAY REPEAT EVERY FIVE MINUTES FOR A TOTAL OF 3 DOSES OR CALL 911 IF NO RELIEF Potassium Chloride ER (Klor-Con 10) 10 Meq Tab 10 MEQ PO BID for Electrolyte Replacement, #60 TAB 0 Refills Trazodone (Trazodone) 50 Mg Tab 50 MG PO HS for Control Depression, #30 TAB 0 Refills Discontinued Medications: Hydrocodone-Acetaminophen (Burgin) 5-325 mg Tab 1 TAB PO Q4H PRN for PAIN, #60 TAB 0 Refills Colten Nelson MD Jun 01, 2017 11:38
[2017-06-01] MEDS ORDERED: NITR100C4 PO (11:40)
[2017-06-01] MEDS ORDERED: LACT PO (11:40)
[2017-06-01 12:00] VITALS: BP 128/72; PULSE 88; RESP 18; TEMP 96.9; O2SAT 93
[2017-06-01] MEDS ORDERED: NITROFURANTOIN MONOHYD MACROCR 100 MG CAP PO SCH (12:00)
== END 2017-06-01 13:35 | disposition home health service (06) ==
LOC: PHED 11:07 → PHEDA 14:24 → PH3A 15:30
PROVIDERS: ADMIT Hospitalist; ATTEND Hospitalist
DX: K56.7 Ileus, unspecified (principal); E86.0 Dehydration; N39.0 Urinary tract infection, site not specified; B96.20 Unspecified Escherichia coli [E. coli] as the cause of diseases classified elsewhere; K21.9 Gastro-esophageal reflux disease without esophagitis; K59.00 Constipation, unspecified; J44.9 Chronic obstructive pulmonary disease, unspecified; I11.0 Hypertensive heart disease with heart failure; I50.9 Heart failure, unspecified; I25.10 Atherosclerotic heart disease of native coronary artery without angina pectoris; E78.00 Pure hypercholesterolemia, unspecified; I25.2 Old myocardial infarction; F32.9 Major depressive disorder, single episode, unspecified
CPT/HCPCS: 74020; 74177; 80053; 81001; 83690; 85025; 87077; 87086; 87186; 93005; 96361; 96365; 96366; 96375; 96376; 97162; 99285; G0378; G8987; G8988; J0744; J2405; J7030; Q9967

== ENCOUNTER 2017-06-20 08:24 | Emergency (ER) | payer MEDICARE, BC ==
[~2017-06-20] VITALS: Ht 167.6 cm; Wt 48.0 kg
[~2017-06-20 08:24] MED LIST changes: -COQ-50CA2 PO; -FERR325C PO; +LACT PO; -LACTCAP8 PO; +NITR100C4 PO; -NORC5TAB PO; +TRAZ50TA12 PO; -XARE10TA PO
--- NOTE | 2017-06-20 08:46 | PD ---
HPI Chief Complaint: pain Time Seen by Provider: 08:46 Travel History International Travel<30 days: No Contact w/Intl Traveler<30days: No Traveled to known affect area: No History of Present Illness HPI 86-year-old female was brought to the emergency room by EMS after the family called 911 since patient has been complaining of hip pain. There is no witnessed fall from my understanding. Patient has significant dementia and since she has been in the emergency room she chosen to be nonverbal. Her vital signs are stable. Her eyes are closed and refuses to respond to verbal stimuli. However upon trying to range her extremities she complains of pain. Patient is not a good historian at this point. There is currently no family member to assist with the history. [facility] Past Medical History Narrative Medical List of her past medical, surgical, social and family history is reviewed from the nursing note. AAA: Yes Arthritis: Yes Autoimmune Disease: No Blood Disorders: No Anxiety: Yes Depression: No Heart Rhythm Problems: No Cancer: No Cardiac Catheterization: Yes Cardiovascular Problems: Yes High Cholesterol: Yes Chest Pain: Yes Congestive Heart Failure: Yes COPD: Yes Cerebrovascular Accident: Yes Coronary Artery Disease: Yes Diabetes: No Diminished Hearing: No Endocrine: No GERD: Yes Genitourinary: No Headaches: No Hepatitis: No Hiatal Hernia: No Heparin Induced Thrombocytopen: No Hypertension: Yes Immune Disorder: No Implanted Vascular Access Dvce: No Kidney Stones: No Musculoskeletal: Yes (ARTHRITIS) Neurologic: No Psychiatric: No Reproductive: No Respiratory: Yes (copd) Immunizations Current: Yes Migraines: No Myocardial Infarction: Yes Pancreatitis: Yes Renal Failure: No Seizures: No Sleep Apnea: No Thyroid Disease: No Ulcer: No Menopausal: Yes : 4 Para: 3 Miscarriage: 1 Past Surgical History Abdominal Surgery: Yes AICD: No Arteriovenous Shunt: No Body Medical Devices: CARDIAC STENT, ANEURYSM CLIP Cardiac Surgery: Yes (CARDIAC STENT 1973) Cholecystectomy: Yes Coronary Artery Bypass Graft: No Coronary Stent: Yes Ear Surgery: No Endocrine Surgery: No Eye Surgery: Yes (RIGHT OPTIC NERVE CLIP) Genitourinary Surgery: No Gynecologic Surgery: No Insulin Pump: No Joint Replacement: No Neurologic Surgery: Yes (R TEMPORAL ANEURYSM REPAIR.) Oral Surgery: No Pacemaker: No Thoracic Surgery: No Other Surgery: Yes (LEFT CAROTID ENDARTARECTOMY, femoral vascular bypass surgery) Social History Alcohol Use: No Tobacco Use: No Substance Use: No Allergies-Medications (Allergen,Severity, Reaction): Coded Allergies: Sulfa (Sulfonamide Antibiotics) (Unverified Allergy, Severe, Rash, ) penicillin G (Unverified Allergy, Severe, Swelling, 04/21/17) phenytoin (Unverified Allergy, Severe, Rash, 04/21/17) MRI PRECAUTION (Verified Adverse Reaction, Severe, ANEURYSM CLIP CX PER S MILES ADB, 04/21/17) acetaminophen (Unverified Adverse Reaction, Severe, Hallucinations, ) diazepam (Unverified Adverse Reaction, Severe, HALLUCINATIONS, 04/21/17) oxycodone (Unverified Adverse Reaction, Severe, Hallucinations, 04/21/17) aspirin (Unverified Adverse Reaction, Intermediate, Bleeding, 04/21/17) PT STATES IT IS "FULL STRENGTH ASA",BABY ASA OK. FULL STRENGTH GIVES HER A NOSE BLEED Comments List of allergies reviewed from the nursing note. Reported Meds & Prescriptions Reported Meds & Active Scripts Active Macrobid (Nitrofurantoin Monoh/Nitrofur Macro) 100 Mg Cap 100 Mg PO BID 10 Days Acidophilus/l-Sporogenes (Lactobacillus Acidophilus) 35 Million Cell-25 Million Cell Tab 1 Tab PO Q12HR Nitrofurantoin Monohydrate Macrocrystals (Nitrofurantoin Monoh/Nitrofur Macro) 100 Mg Cap 100 Mg PO BIDPC Reported Trazodone (Trazodone HCl) 50 Mg Tab 50 Mg PO HS Tums (Calcium Carbonate (Antacid)) 500 Mg Chew 500 Mg CHEW PRN Nexium (Esomeprazole DR) 20 Mg Capdr 20 Mg PO DAILY PRN Nitroglycerin SL (Nitroglycerin) 0.4 Mg Subl 0.4 Mg SL DIRECTED PRN ONE TABLET UNDER THE TONGUE NEEDED FOR CHEST PAIN, MAY REPEAT EVERY FIVE MINUTES FOR A TOTAL OF 3 DOSES OR CALL 911 IF NO RELIEF Symbicort Inh (Budesonide/Formoterol Fumarate) 160-4.5 Mcg/Act Aero 2 Puff INH Q12HR Mirtazapine 7.5 Mg Tab 15 Mg PO HS Klor-Con 10 (Potassium Chloride) 10 Meq Tab 10 Meq PO BID Metoprolol Tartrate 25 Mg Tab 12.5 Mg PO BID Narrative Medication List of her home medications reviewed from the nursing note. Review of Systems ROS Limitations: Altered Mental Status Except as stated in HPI: all other systems reviewed are Neg Physical Exam Narrative GENERAL: Dementia, elderly, eyes closed and nonverbal SKIN: Focused skin assessment warm/dry. HEAD: Atraumatic. Normocephalic. EYES: Pupils equal and round. No scleral icterus. No injection or drainage. ENT: No nasal bleeding or discharge. Mucous membranes pink and moist. NECK: Trachea midline. No JVD. CARDIOVASCULAR: Regular rate and rhythm. No murmur appreciated. RESPIRATORY: No accessory muscle use. Clear to auscultation. Breath sounds equal bilaterally. GASTROINTESTINAL: Abdomen soft, non-tender, nondistended. Hepatic and splenic margins not palpable. MUSCULOSKELETAL: No obvious deformities. No clubbing. No cyanosis. No edema. NEUROLOGICAL: Dementia, moving all 4 extremities when passively try to mobilize and patient complains of pain PSYCHIATRIC: Appropriate mood and affect; insight and judgment normal. Data Data Last Documented VS Orders Orders Complete Blood Count With Diff (06/20/17 09:00) Basic Metabolic Panel (Bmp) (06/20/17 09:00) Creatine Kinase (Cpk) (06/20/17 09:00) Urinalysis - C+S If Indicated (06/20/17 09:00) Sodium Chlorid 0.9% 500 Ml Inj (Ns 500 M (06/20/17 09:00) Hip, Uni(Ap&Lat) W Ap Pelvis (06/20/17 ) Urine Culture (06/20/17 09:11) Blood Glucose (06/20/17 10:16) Nitrofurantoin Monohyd Macrocr (Macrobid (06/20/17 10:30) Hospice Consult (06/20/17 10:42) Ed Discharge Order (06/20/17 14:57) Labs Laboratory Tests Test 06/20/17 09:11 06/20/17 09:12 Urine Color YELLOW Urine Turbidity CLEAR Urine pH 7.0 Urine Specific [place] 1.011 Urine Protein NEG mg/dL Urine Glucose (UA) NEG mg/dL Urine Ketones NEG mg/dL Urine Occult Blood MOD Urine Nitrite NEG Urine Bilirubin NEG Urine Urobilinogen LESS THAN 2.0 MG/DL Urine Leukocyte Esterase LARGE Urine RBC 2 /hpf Urine WBC 27 /hpf Urine Bacteria RARE /hpf Urine Hyaline Casts 1 /lpf Microscopic Urinalysis Comment CATH-CULTURE IND White Blood Count 4.9 TH/MM3 Red Blood Count 4.16 MIL/MM3 Hemoglobin 11.6 GM/DL Hematocrit 35.9 % Mean Corpuscular Volume 86.3 FL Mean Corpuscular Hemoglobin 27.8 PG Mean Corpuscular Hemoglobin Concent 32.2 % Red Cell Distribution Width 18.3 % Platelet Count 261 TH/MM3 Mean Platelet Volume 7.6 FL Neutrophils (%) (Auto) 56.1 % Lymphocytes (%) (Auto) 31.9 % Monocytes (%) (Auto) 7.7 % Eosinophils (%) (Auto) 2.9 % Basophils (%) (Auto) 1.4 % Neutrophils # (Auto) 2.8 TH/MM3 Lymphocytes # (Auto) 1.6 TH/MM3 Monocytes # (Auto) 0.4 TH/MM3 Eosinophils # (Auto) 0.1 TH/MM3 Basophils # (Auto) 0.1 TH/MM3 CBC Comment DIFF FINAL Differential Comment Blood Urea Nitrogen 12 MG/DL Creatinine 0.99 MG/DL Random Glucose 73 MG/DL Calcium Level 9.0 MG/DL Sodium Level 140 MEQ/L Potassium Level 4.3 MEQ/L Chloride Level 107 MEQ/L Carbon Dioxide Level 28.7 MEQ/L Anion Gap 4 MEQ/L Estimat Glomerular Filtration Rate 53 ML/MIN Total Creatine Kinase 101 U/L MDM Medical Decision Making Medical Screen Exam Complete: Yes Emergency Medical Condition: Yes Medical Record Reviewed: Yes Differential Diagnosis Hip fracture, worsening dementia, electrolyte abnormalities Narrative Course 10:26 AM blood test results are back. Her blood sugar is somewhat low. Patient will be given some juice and a repeat blood sugar check. X-ray of her hip is negative. I was told that the daughter is in the room. I'll discuss with her but patient from my perspective should be able to go home. UA is positive and I'll give her dose of Macrobid and prescription to go home with. 10:51 AM I discussed the case with the daughter who is in the room. She tells me that this morning she tried to get her mother onto the wheelchair and patient started complaining and screaming in pain that her right hip was hurting and burning. The daughter was not sure if she had fallen and hence called 911. She had given her pain medication but when patient continued to cry of pain she decided to send her to the emergency room. Daughter says that her mother has been worsened significantly in her dementia. Especially after her hip surgery her mental condition has significantly declined. Had an extensive discussion with her and educated her regarding dementia. I explained to her that to me her mother appears to be in advanced dementia. I gave her the option of home care hospice and she agreed to that. Currently the pillowcase cleaner is trying to get [facility] initiated. Patient will be discharged otherwise. Procedures EKG Prior to Arrival: No Diagnosis Primary Impression: Dementia Qualified Codes: F03.91 - Unspecified dementia with behavioral disturbance Additional Impression: UTI (urinary tract infection) Qualified Codes: N39.0 - Urinary tract infection, site not specified Referrals: Primary Care Physician 3 days Additional Instructions: Please return to the ER if condition worsens. Otherwise deferred to hospice. Take the medication as per the prescription direction. Med/Other Pt SpecificInfo: Prescription(s) given Scripts Nitrofurantoin Monohydrate Macrocrystals (Macrobid) 100 Mg Cap 100 MG PO BID for Infection for 10 Days, #20 CAP 0 Refills Prov: Santos Trejo MD 06/20/17 Condition: Stable Santos Trejo MD Jun 20, 2017 08:46
[2017-06-20 08:57] VITALS: BP 193/77; PULSE 60; RESP 17; TEMP 97.8; O2SAT 96
[2017-06-20] MEDS ORDERED: SODIUM CHLORID 0.9% 500 ML INJ 500 ML IV ONE (09:00)
[2017-06-20 09:26] LABS: AUTOMATED NEUTROPHIL # 2.8 TH/MM3 (1.8-7.7); BASOPHIL # 0.1 TH/MM3 (0-0.2); BASOPHIL % 1.4 % (0.0-2.0); EOSINOPHIL # 0.1 TH/MM3 (0-0.4); EOSINOPHIL % 2.9 % (0.0-4.0); HEMATOCRIT 35.9 % (35.0-46.0); HEMOGLOBIN 11.6 GM/DL (11.6-15.3); LYMPH % 31.9 % (9.0-44.0); LYMPHOCYTE # 1.6 TH/MM3 (1.0-4.8); MEAN CELL VOLUME 86.3 FL (80.0-100.0); MEAN CORPUSCULAR HEMOGLOBIN 27.8 PG (27.0-34.0); MEAN CORPUSCULAR HGB CONC 32.2 % (32.0-36.0); MEAN PLATELET VOLUME 7.6 FL (7.0-11.0); MONO % 7.7 % (0.0-8.0); MONOCYTE # 0.4 TH/MM3 (0-0.9); NEUT % 56.1 % (16.0-70.0); PLATELET COUNT 261 TH/MM3 (150-450); RED BLOOD COUNT 4.16 MIL/MM3 (4.00-5.30); RED CELL DISTRIBUTION WIDTH 18.3 % (11.6-17.2); WHITE BLOOD COUNT 4.9 TH/MM3 (4.0-11.0)
[2017-06-20 09:36] LABS: BACTERIA, URINE RARE /hpf; BILIRUBIN, URINE NEG (NEG); BLOOD, URINE MOD (NEG); GLUCOSE,URINE NEG (NEG); HYALINE CAST, URINE 1 /lpf (RARE); KETONE, URINE NEG (NEG); NITRITE,URINE NEG (NEG); URINE COLOR YELLOW (YELLW/STRAW); URINE LEUKOCYTE ESTERASE LARGE (NEG)
--- NOTE | 2017-06-20 09:38 | RADRPT ---
EXAM DATE/TIME: 06/20/2017 09:19 [place] COMPARISON: CT ABDOMEN & PELVIS W CONTRAST, May 30, 2017, 13:30. ABDOMEN FLAT & UPRIGHT, May 31, 2017, 13:39. INDICATIONS : Right hip pain, no trauma. MEDICAL HISTORY : Hypertension. SURGICAL HISTORY : Coronary artery stent. ENCOUNTER: Initial ACUITY: 1 day PAIN SCORE: 10/10 LOCATION: Right hip joint. FINDINGS: The patient is post intramedullary [place] and dynamic compression screw placement across the right femor al neck. This appears well-positioned. There degenerative changes within the right hip joint. The remainder the osseous structures appear grossly intact. There are degenerative changes of the lef t hip as well. The exam does demonstrate a partially calcified infrarenal abdominal aortic aneurysm. This is the pre vious CT imaging. CONCLUSION: 1. The patient is post ORIF with dynamic compression screw placement across a right femoral neck frac ture. Hardware is well-positioned. No new fractures are seen. There are degenerative changes in the h ips. 2. Incidental abdominal aortic aneurysm. This has been assessed by previous CT imaging. Tomer Hill MD on June 20, 2017 at 9:34 Board Certified Radiologist. This report was verified electronically.
[2017-06-20 09:44] LABS: BICARBONATE 28.7 MEQ/L (21.0-32.0); CREATININE 0.99 MG/DL (0.50-1.00)
[2017-06-20] MEDS ORDERED: NITROFURANTOIN MONOHYD MACROCR 100 MG CAP PO ONE (10:30)
[2017-06-20] MEDS ORDERED: MACR100C2 PO (10:54)
[2017-06-20 11:09] VITALS: BP 118/58; PULSE 62; RESP 15; O2SAT 100
== END 2017-06-20 18:49 | disposition home or self-care (01) ==
LOC: NEPE 08:24
DX: F03.91 Unspecified dementia, unspecified severity, with behavioral disturbance (principal); M25.551 Pain in right hip; I11.0 Hypertensive heart disease with heart failure; I50.9 Heart failure, unspecified; I25.10 Atherosclerotic heart disease of native coronary artery without angina pectoris; I25.2 Old myocardial infarction; K21.9 Gastro-esophageal reflux disease without esophagitis; J44.9 Chronic obstructive pulmonary disease, unspecified; N39.0 Urinary tract infection, site not specified; B37.49 Other urogenital candidiasis
CPT/HCPCS: 73502; 80048; 81001; 82550; 85025; 87086; 99285; J7040